=== PATIENT | male | born 1950 | race Caucasian/White ===

== ENCOUNTER → 2017-07-20 10:19 | Outpatient (CLI) | payer MEDICARE, OTHER, SELFPAY | PROVIDERS: Family Provider Internal Medicine; PCP Internal Medicine; Visit Provider Internal Medicine | DX: I10 Essential (primary) hypertension (principal); Z53.9 Procedure and treatment not carried out, unspecified reason ==

== ENCOUNTER → 2018-07-19 06:58 | Outpatient (CLI) | payer MEDICARE, OTHER, SELFPAY ==
[2018-07-19 09:07] LABS: Alanine Aminotransferase 24 IU/L (21-72); Albumin 4.1 g/dL (3.5-5.0); Albumin Globulin Ratio 1.5 (1.0-2.8); Alkaline Phosphatase 57 U/L (38-126); Aspartate Aminotransferase 23 IU/L (17-59); Bilirubin Total 0.7 mg/dL (0.2-1.3); Blood Urea Nitrogen 16 mg/dL (9-20); Calcium 9.3 mg/dL (8.4-10.2); Carbon Dioxide 27 mmol/L (22-32); Chloride 104 mmol/L (98-107); Cholesterol 132 mg/dL (140-199); Estimated Glomerular Filt Rate > 60.0 mL/min (>60); Globulin 2.7 g/dL (1.7-4.1); Glucose 89 mg/dL (80-110); HDL Cholesterol 44 mg/dL (40-60); HEMOLYSIS < 15 (0-50); LDL Cholesterol Calculated 69 mg/dL (<100); Potassium 4.4 mmol/L (3.4-5.1); Sodium 141 mmol/L (137-145); Total Protein 6.8 g/dL (6.3-8.2); Triglycerides 96 mg/dL (35-150)
[2018-07-19 09:37] LABS: Prostate Specific Antigen Scrn 3.91 ng/mL (0.1-4.0)
== END ==
PROVIDERS: Family Provider Internal Medicine; PCP Internal Medicine; Visit Provider Internal Medicine
DX: E78.2 Mixed hyperlipidemia (principal); I10 Essential (primary) hypertension; Z12.5 Encounter for screening for malignant neoplasm of prostate
CPT/HCPCS: 36415; 80053; 80061; G0103

== ENCOUNTER → 2018-08-09 07:15 | Outpatient (CLI) | payer MEDICARE, OTHER, SELFPAY ==
[2018-08-11 19:04] LABS: Fecal Immunochemical Test NOT DETECTED (NOT DETECTED)
== END ==
PROVIDERS: PCP Internal Medicine; Visit Provider Internal Medicine
DX: Z12.11 Encounter for screening for malignant neoplasm of colon (principal)
CPT/HCPCS: 82274

== ENCOUNTER 2018-11-29 08:15 | Emergency (ER) | payer MEDICARE, OTHER, SELFPAY ==
[2018-11-29 08:20] VITALS: BP 142/111; PULSE 144; RESP 14; TEMP 36.3; O2SAT 99
--- NOTE | 2018-11-29 08:24 | DI.RAD.S_ITS ---
PROCEDURE: XR CHEST 1V INDICATIONS: chest pain TECHNIQUE: One view of the chest was acquired. COMPARISON: None. FINDINGS: Surgical changes and devices: None. Lungs and pleura: Lungs are clear. No pleural effusions or pneumothorax. Mediastinum: Mediastinal contours appear normal. Heart size is normal. Bones and chest wall: No suspicious bony lesions. Overlying soft tissues appear unremarkable. IMPRESSION: No acute process. Dictated by: Merrill Nesbitt M.D. on 11/29/2018 at 8:44 Approved by: Merrill Nesbitt M.D. on 11/29/2018 at 8:45
--- NOTE | 2018-11-29 08:27 | ED.ARRPALP ---
HPI - Arrhythmia/Palpitations General Chief Complaint: Hypertension Stated Complaint: blood pressure/heart rate Time Seen by Provider: 11/29/18 08:18 Source: patient Mode of arrival: Ambulatory Limitations: no limitations History of Present Illness HPI narrative: Patient is a 68-year-old male who presents with some heart palpitations. He said he went to get coffee in this morning came home and just started to not feel right. He took his blood pressure he noted it was elevated he also noticed at that time that his heart rate was also increased to the 150s. This never happened to him before. He actually states that over last 4 days he felt dizzy and lightheaded. He denies any chest pain or palpitations or shortness of breath. Today was the 1st day that he felt well enough to leave the house. He has been taking his blood pressure and heart rates and recording them. All 1 from yesterday shows heart rate of 108 and 30 seconds later heart rate of 60. MD complaint: heart racing Duration: constant Related Data Home Medications Medication Instructions Recorded Confirmed ASPIRIN (#ASPIRIN) 81 mg PO QDAY #0 01/07/11 07/28/18 cholecalciferol (vitamin D3) 400 400 unit PO DAILY 10/15/17 07/28/18 unit capsule simvastatin 40 mg PO DAILY 11/29/18 11/29/18 tamsulosin [Flomax] 0.4 mg PO DAILY 11/29/18 11/29/18 Previous Rx's Medication Instructions Recorded ciclopirox 1 % TOPICAL TID #120 bot 10/11/17 amlodipine 10 mg tablet 10 mg PO DAILY #90 tab 09/30/18 Allergies Allergy/AdvReac Type Severity Reaction Status Date / Time No Known Drug Allergies Allergy Verified 07/28/18 10:11 Review of Systems Review of Systems Narrative: GENERAL: Denies chills, fatigue, malaise, fever, sweats, travel HEENT: Denies sinus pain, ear pain, sore throat, difficulty swallowing, neck pain RESPIRATORY: Denies dyspnea, cough, wheezing, hemoptysis, sputum. CARDIOVASCULAR: See HPI GASTROINTESTINAL: Denies nausea, vomiting, abdominal pain, diarrhea, constipation, melena. : Denies dysuria, frequency, incontinence, hematuria, urinary retention, flank pain. MUSCULOSKELETAL: Denies weakness, joint pain, or bony pain SKIN: No rash, no erythema, no pruritus NEUROLOGIC: Denies weakness, dizziness, headache, numbness, change in speech, confusion PSYCHIATRIC: No concerning psychosocial issues. 12 point review of systems is negative except for those stated above and HPI [facility] Medical History Hx of venous thrombosis and embolism (Chronic 01/07/11) Hypertension (Chronic) Mixed hyperlipidemia (Chronic) Osteoarthritis of knee (Chronic 06/13/13) Personal history of pulmonary embolism (Chronic 01/07/11) Family History Father Timbo hx-ischem heart disease Social History marital status: number of children: 3 household members: spouse lives independently: Yes caregiver/support person: No housing: house pets and animals: Yes education level: college (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 yolanda/pentecostalism: Catholic leisure activities: exercise and other (Golfing, digging clams, visiting neighbor.) Smoking Status: Never smoker Tobacco: How many years used: 0 quit status: quit date established (Never started) second hand exposure: No alcohol intake: former substance use type: does not use and other (Drugs in past.) Family History Father [facility] hx-ischem heart disease Social History marital status: number of children: 3 household members: spouse lives independently: Yes caregiver/support person: No housing: house pets and animals: Yes education level: college (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 yolanda/pentecostalism: Catholic leisure activities: exercise and other (Golfing, digging clams, visiting neighbor.) Smoking Status: Never smoker Tobacco: How many years used: 0 quit status: quit date established (Never started) second hand exposure: No alcohol intake: former substance use type: does not use and other (Drugs in past.) Exam Initial Vital Signs Initial Vital Signs: Vital Signs Temperature 97.4 F L 11/29/18 08:20 Pulse Rate 144 H 11/29/18 08:20 Respiratory Rate 14 11/29/18 08:20 Blood Pressure 142/111 H 11/29/18 08:20 Pulse Oximetry 99 11/29/18 08:20 GENERAL: Alert pleasant well-appearing male and in no acute distress. HEENT: Head atraumatic,EOMI, pupils reactive, face symmetric CARDIOVASCULAR: Tachycardic irregularly irregular no murmur RESPIRATORY: Breath sounds equal bilaterally, no wheezes rales or rhonchi. ABDOMEN: Soft, nontender. Normoactive bowel sounds all 4 quadrants. No guarding or rebound. EXTREMITIES: Normal range of motion, no clubbing or edema. Neurovascularly intact NEUROLOGICAL: Alert and oriented x4.Normal gait and speech. Cranial nerves II through XII grossly intact. SKIN: Warm, dry, no laceration, no petechiae, no rashes or lesions. Scores CHADS-VASc Congestive heart failure: no Hypertension: yes Age 75 years or older: no Diabetes mellitus: no Stroke, TIA, or TE: no Vascular disease: no Age 65 to 74 years: yes Sex category (female): Male CHADS-VASc Score: 2 Course Orders Ordered: ED Orders 11/29/18 08:22 EKG-12 Lead Stat 11/29/18 08:24 XR chest 1V Stat 11/29/18 08:30 Complete Blood Count AUTO DIFF Stat Comprehensive Metabolic Panel Stat Magnesium Stat Partial Thromboplastin Time Stat Prothrombin Time INR Stat Thyroid Stimulating Hormone Stat Troponin & CK Cardiac Panel Stat 11/29/18 10:18 EKG-12 Lead Routine Sodium Chloride (Normal Saline 0.9%) 1,000 mls @ 150 mls/hr IV CONT CARLOS ENRIQUE Last Admin: 11/29/18 08:35 Dose: 150 mls/hr Documented by: GRANT Discontinued Medications Aspirin (Aspirin Chew) 324 mg PO NOW ONE Stop: 11/29/18 09:15 Last Admin: 11/29/18 09:25 Dose: 324 mg Documented by: GRANT Diltiazem HCl (Cardizem) 10 mg IV NOW ONE Stop: 11/29/18 08:25 Last Admin: 11/29/18 08:34 Dose: 10 mg Documented by: GRANT Diltiazem HCl (Cardizem) 10 mg IV NOW ONE Stop: 11/29/18 08:43 Last Admin: 11/29/18 08:44 Dose: 10 mg Documented by: GRANT Metoprolol Succinate (Toprol Xl) 25 mg PO NOW ONE Stop: 11/29/18 09:15 Last Admin: 11/29/18 09:25 Dose: 25 mg Documented by: GRANT Vital Signs Vital signs: Vital Signs - 8 hr 11/29/18 08:20 11/29/18 08:48 11/29/18 09:30 Temperature 97.4 F L Pulse Rate 144 H 108 H 98 H Respiratory Rate 14 Blood Pressure 142/111 H Blood Pressure [Left Arm] 114/66 112/74 Pulse Oximetry 99 11/29/18 10:17 Temperature Pulse Rate 72 Respiratory Rate Blood Pressure Blood Pressure [Left Arm] 106/66 Pulse Oximetry MDM - Arrhythmia/Palpitations Lab Data Attestation: I reviewed the patient's lab results. Result diagrams: 11/29/18 08:30 11/29/18 08:30 Labs: Lab Results 11/29/18 11/29/18 11/29/18 Range/Units 08:30 08:30 08:30 WBC 8.7 (4.5-11.0) X10^3/uL RBC 5.00 (4.5-5.9) X10^6/uL Hgb 15.4 (13.5-17.5) g/dL Hct 45.0 (41-53) % MCV 90.0 (80-100) fL MCH 30.8 (26-34) PG MCHC 34.2 (30-36) % RDW 12.9 (11.6-14.8) % Plt Count 288 (150-400) X10^3/uL Neut % (Auto) 65.7 (50-75) % Lymph % (Auto) 25.0 (25-40) % Randall % (Auto) 7.5 (3-14) % Eos % (Auto) 1.4 L (2-4) % Baso % (Auto) 0.4 (0-2) % Neut # (Auto) 5700 (0441-3269) /uL Lymph # (Auto) 2200 (9569-1331) /uL Randall # (Auto) 700 (0-900) /uL Eos # (Auto) 100 (0-450) /uL Baso # (Auto) 0 (0-100) /uL PT 12.1 (10.1-12.7) SECONDS INR 1.0 (0.9-1.3) APTT 31 (26.4-36.2) SECONDS Sodium 138 (137-145) mmol/L Potassium 4.0 (3.4-5.1) mmol/L Chloride 103 (98-107) mmol/L Carbon Dioxide 26 (22-32) mmol/L BUN 18 (9-20) mg/dL Creatinine 0.80 (0.66-1.25) mg/dL Estimated GFR > 60.0 (>60) mL/min BUN/Creatinine Ratio 22.5 H (6-22) Glucose 107 (80-110) mg/dL Calcium 9.3 (8.4-10.2) mg/dL Magnesium 2.1 (1.6-2.3) mg/dL Total Bilirubin 0.6 (0.2-1.3) mg/dL AST 25 (17-59) IU/L ALT 17 L (21-72) IU/L Alkaline Phosphatase 64 (38-126) U/L Total Creatine Kinase 64 (55-170) U/L CK-MB (CK-2) TNP CK-MB (CK-2) Rel Index TNP Troponin I < 0.012 (0.01-0.034) ng/mL Total Protein 7.4 (6.3-8.2) g/dL Albumin 4.2 (3.5-5.0) g/dL Globulin 3.2 (1.7-4.1) g/dL Albumin/Globulin Ratio 1.3 (1.0-2.8) TSH (0.47-4.68) uIU/mL 11/29/18 Range/Units 08:30 WBC (4.5-11.0) X10^3/uL RBC (4.5-5.9) X10^6/uL Hgb (13.5-17.5) g/dL Hct (41-53) % MCV (80-100) fL MCH (26-34) PG MCHC (30-36) % RDW (11.6-14.8) % Plt Count (150-400) X10^3/uL Neut % (Auto) (50-75) % Lymph % (Auto) (25-40) % Randall % (Auto) (3-14) % Eos % (Auto) (2-4) % Baso % (Auto) (0-2) % Neut # (Auto) (6670-8535) /uL Lymph # (Auto) (9708-8033) /uL Randall # (Auto) (0-900) /uL Eos # (Auto) (0-450) /uL Baso # (Auto) (0-100) /uL PT (10.1-12.7) SECONDS INR (0.9-1.3) APTT (26.4-36.2) SECONDS Sodium (137-145) mmol/L Potassium (3.4-5.1) mmol/L Chloride (98-107) mmol/L Carbon Dioxide (22-32) mmol/L BUN (9-20) mg/dL Creatinine (0.66-1.25) mg/dL Estimated GFR (>60) mL/min BUN/Creatinine Ratio (6-22) Glucose (80-110) mg/dL Calcium (8.4-10.2) mg/dL Magnesium (1.6-2.3) mg/dL Total Bilirubin (0.2-1.3) mg/dL AST (17-59) IU/L ALT (21-72) IU/L Alkaline Phosphatase (38-126) U/L Total Creatine Kinase (55-170) U/L CK-MB (CK-2) CK-MB (CK-2) Rel Index Troponin I (0.01-0.034) ng/mL Total Protein (6.3-8.2) g/dL Albumin (3.5-5.0) g/dL Globulin (1.7-4.1) g/dL Albumin/Globulin Ratio (1.0-2.8) TSH 3.20 (0.47-4.68) uIU/mL Imaging Data Chest x-ray: Radiologist's impression: PROCEDURE: XR CHEST 1V INDICATIONS: chest pain TECHNIQUE: One view of the chest was acquired. COMPARISON: None. FINDINGS: Surgical changes and devices: None. Lungs and pleura: Lungs are clear. No pleural effusions or pneumothorax. Mediastinum: Mediastinal contours appear normal. Heart size is normal. Bones and chest wall: No suspicious bony lesions. Overlying soft tissues appear unremarkable. IMPRESSION: No acute process. Dictated by: Merrill Nesbitt M.D. on 11/29/2018 at 8:44 Approved by: Merrill Nesbitt M.D. on 11/29/2018 at 8:45 ECG Data Attestation: I personally reviewed and interpreted this ECG as follows: Prior ECG tracings: not available for review Interpretation: Atrial flutter rate [address] changes no priors to compare EKG 2. Normal sinus rhythm rate 62 p.r. interval [address] elevations or depressions no T-wave inversion MDM Narrative Medical decision making narrative: Patient not a candidate for cardioversion he likely had symptoms for the last few days with the dizziness. His heart rate has been in the 60s although he has had some above 100. His heart rate is much better controlled with diltiazem however he remains in atrial flutter he is actually asymptomatic at this time. I discussed case with Dr. Padron for admission recommend starting him on metoprolol twice daily. Dr. Padron enter the emergency department to evaluate patient and patient spontaneously converted into sinus rhythm. He continues to have no complaints. At this time patient will be discharged home on metoprolol twice daily along with aspirin and follow up outpatient. Discharge Plan Departure Patient Disposition: Home Clinical Impression: Atrial flutter with rapid ventricular response Discharge Date/Time: 11/29/18 10:52 Instructions: Atrial Flutter Activity Restrictions/Additional Instructions: *You have been diagnosed with atrial flutter *What to do: Your heart rate was irregular which may be causing your dizziness. He spontaneously converted back to a normal rhythm. You still need further work up including echocardiogram. *Continue to take medications as directed Metoprolol 25 mg twice a day Aspirin 81 mg once daily *Follow up with your primary care provider in 2-3 days, call Dr. Carpio his office today to schedule appointment *Return to ER if you should have increasing heart palpitations dizziness lightheadedness shortness of breath or any new, worsening or concerning symptoms Prescriptions: New metoprolol succinate 25 mg tablet extended release 24 hr 25 mg PO BID Qty: 30 RF: 0 No Action ASPIRIN (#ASPIRIN) 81 mg PO QDAY Qty: 0 RF: 0 ciclopirox 1 % shampoo 1 % Topical TID Qty: 120 RF: 11 amlodipine 10 mg tablet 10 mg PO DAILY Qty: 90 RF: 3 cholecalciferol (vitamin D3) [Vitamin D3] 400 unit capsule 400 unit PO DAILY RF: 0 simvastatin 40 mg tablet 40 mg PO DAILY RF: 0 tamsulosin [Flomax] 0.4 mg capsule 0.4 mg PO DAILY RF: 0 Referrals: Vidal Carpio MD [Primary Care Provider] -
[2018-11-29] MEDS: dilTIAZem 5 MG/ML SDV 10 MG IV ×2 (08:34→08:44)
[2018-11-29 08:35] LABS: Add Manual Diff / Slide Review NO; Basophils Absolute Auto 0 /uL (0-100); Basophils Percent Auto 0.4 % (0-2); Eosinophils Absolute Auto 100 /uL (0-450); Eosinophils Percent Auto 1.4 % (2-4); Hemoglobin 15.4 g/dL (13.5-17.5); Lymphocytes Absolute Auto 2200 /uL (1100-4500); Mean Corpuscular HGB Conc 34.2 % (30-36); Mean Corpuscular Hemoglobin 30.8 PG (26-34); Monocytes Absolute Auto 700 /uL (0-900); Monocytes Percent Auto 7.5 % (3-14); Neutrophils Absolute Auto 5700 /uL (1500-7000); Neutrophils Percent Auto 65.7 % (50-75); Platelet Count 288 X10^3/uL (150-400); Red Cell Distribution Width 12.9 % (11.6-14.8); White Blood Cell Count 8.7 X10^3/uL (4.5-11.0)
[2018-11-29] MEDS: SODIUM CHLORIDE 0.9% 1,000 ML 150 ML IV (08:35)
[2018-11-29 08:42] LABS: Prothrombin Time 12.1 SECONDS (10.1-12.7)
[2018-11-29 08:45] LABS: PTT Partial Thromboplastin Tim 31 SECONDS (26.4-36.2)
[2018-11-29 08:47] LABS: Alanine Aminotransferase 17 IU/L (21-72); Albumin 4.2 g/dL (3.5-5.0); Albumin Globulin Ratio 1.3 (1.0-2.8); Alkaline Phosphatase 64 U/L (38-126); Aspartate Aminotransferase 25 IU/L (17-59); BUN Creatinine Ratio 22.5 (6-22); Bilirubin Total 0.6 mg/dL (0.2-1.3); Blood Urea Nitrogen 18 mg/dL (9-20); Calcium 9.3 mg/dL (8.4-10.2); Carbon Dioxide 26 mmol/L (22-32); Chloride 103 mmol/L (98-107); Creatine Kinase 64 U/L (55-170); Estimated Glomerular Filt Rate > 60.0 mL/min (>60); Globulin 3.2 g/dL (1.7-4.1); Glucose 107 mg/dL (80-110); HEMOLYSIS 19 (0-50); Magnesium 2.1 mg/dL (1.6-2.3); Sodium 138 mmol/L (137-145); Total Protein 7.4 g/dL (6.3-8.2)
[2018-11-29 08:48] VITALS: BP 114/66; PULSE 108
[2018-11-29 08:58] LABS: Troponin I < 0.012 ng/mL (0.01-0.034)
[2018-11-29] MEDS: ASPIRIN 81 MG CHEW TAB 324 MG PO (09:25)
[2018-11-29] MEDS: METOPROLOL ER 25 MG TABLET PO (09:25)
[2018-11-29 09:30] VITALS: BP 112/74; PULSE 98
[2018-11-29 10:17] VITALS: BP 106/66; PULSE 72
--- NOTE | 2018-12-06 07:29 | PC.NURSE ---
late entry: pt received one liter of fluids NS all infused 1000cc at 1000. pt dc shortly after. nad
--- NOTE | 2018-12-06 07:33 | PC.NURSE ---
pt denies chest pain arrival to ed due to palpatations
== END 2018-11-29 10:52 | disposition home or self-care (01) ==
LOC: ED 09:17 → AC 09:18
PROVIDERS: Emergency Provider Emergency Medicine; PCP Internal Medicine
DX: I48.92 Unspecified atrial flutter (principal)
CPT/HCPCS: 71045; 80053; 82550; 83735; 84443; 84484; 85025; 85610; 85730; 93005; 93010; 93041; 96361; 96374; 99283; 99285

== ENCOUNTER 2018-12-13 17:16 | Emergency (ER) | payer MEDICARE, OTHER, SELFPAY ==
[2018-12-13 17:35] VITALS: BP 148/82; PULSE 52; RESP 18; TEMP 36.6; O2SAT 98; BMI 33.3
--- NOTE | 2018-12-13 17:51 | ED_ITS ---
HPI - Extremity Problem <Cookie Chawla PA-C - Last Filed: 12/13/18 20:27> General Chief complaint: Extremity Problem,Nontraumatic Stated complaint: ELEVATED BP, SWELLING LT LEG Time Seen by Provider: 12/13/18 17:43 Source: patient Mode of arrival: Ambulatory History of Present Illness HPI Narrative: This 68-year-old male comes to ED secondary to noticing swelling in his left ankle and leg today. He states he has had some mild pain/discomfort in the calf and hamstring area for 3 or 4 days. He denies any known trauma, did move a washer and dryer yesterday but does not think he had any injury, and no other known trauma. He has not had any recent travel, surgery, or immobility and is walking 2 miles daily as usual. He denies any chest pain or dyspnea or other new symptoms and has been going about his usual activities. He states that he would not have come in for this mild discomfort he has had aside from noticing the swelling today. He does have a history of remote DVT 15 years ago in the setting of injury. He does take 81 mg ASA daily. He was seen recently for a flutter which resolved. No new medical issues since then. No FH blood clots Related Data Home Medications Medication Instructions Recorded Confirmed aspirin 81 mg PO QPM #0 01/07/11 12/13/18 cholecalciferol (vitamin D3) 400 400 unit PO DAILY 10/15/17 12/13/18 unit capsule simvastatin 40 mg PO QPM 11/29/18 12/13/18 tamsulosin [Flomax] 0.4 mg PO QPM 11/29/18 12/13/18 amlodipine 10 mg PO QPM 12/13/18 12/13/18 Previous Rx's Medication Instructions Recorded ciclopirox 1 % TOPICAL TID #120 bot 10/11/17 metoprolol succinate 25 mg 25 mg PO BID #180 tab 12/05/18 tablet,extended release 24 hr apixaban [Eliquis] See Rx Instructions .ROUTE 12/13/18 .COMPLEX #90 tab Allergies Allergy/AdvReac Type Severity Reaction Status Date / Time No Known Drug Allergies Allergy Verified 12/05/18 16:15 Review of Systems <Cookie Chawla PA-C - Last Filed: 12/13/18 20:27> Review of Systems ROS Unobtainable: All systems reviewed & are unremarkable except as noted in HPI and below PFSH <Cookie Chawla PA-C - Last Filed: 12/13/18 20:27> Medical History Hx of venous thrombosis and embolism (Chronic 01/07/11) Hypertension (Chronic) Mixed hyperlipidemia (Chronic) Osteoarthritis of knee (Chronic 06/13/13) Personal history of pulmonary embolism (Chronic 01/07/11) Family History Father Fam hx-ischem heart disease Social History marital status: number of children: 3 household members: spouse lives independently: Yes caregiver/support person: No housing: house pets and animals: Yes education level: college (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 yoalnda/protestant: Nondenominational leisure activities: exercise and other (Golfing, digging clams, visiting neighbor.) Smoking Status: Never smoker Tobacco: How many years used: 0 quit status: quit date established (Never started) second hand exposure: No alcohol intake: former substance use type: does not use and other (Drugs in past.) Family History Father Fam hx-ischem heart disease Social History marital status: number of children: 3 household members: spouse lives independently: Yes caregiver/support person: No housing: house pets and animals: Yes education level: college (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 yolanda/protestant: Nondenominational leisure activities: exercise and other (Golfing, digging clams, visiting neighbor.) Smoking Status: Never smoker Tobacco: How many years used: 0 quit status: quit date established (Never started) second hand exposure: No alcohol intake: former substance use type: does not use and other (Drugs in past.) Exam <Cookie Chawla PA-C - Last Filed: 12/13/18 20:27> Narrative Exam Narrative: GENERAL APPEARANCE: Patient sitting comfortably, in no distress. NECK/THYROID: Neck supple LUNGS: Clear to auscultation bilaterally. HEART: Regular rate and rhythm without murmur, normal S1, S2, no S3 or S4. EXTREMITIES: No cyanosis, mild pitting edema on the left, none on the right, bilateral varicosities noted. NEUROLOGIC: Alert and oriented, normal speech and coordination. MUSCULOSKELETAL: No tenderness over the left foot or ankle, mild tenderness over the left inferior mid calf, none over remainder of lower extremity. Full range of motion of the foot, knee, and ankle Initial Vital Signs Initial Vital Signs: Vital Signs Temperature 97.8 F 12/13/18 17:35 Pulse Rate 52 L 12/13/18 17:35 Respiratory Rate 18 12/13/18 17:35 Blood Pressure 148/82 H 12/13/18 17:35 Pulse Oximetry 98 12/13/18 17:35 <DO Leticia Walton Last Filed: 12/13/18 23:09> Initial Vital Signs Initial Vital Signs: Vital Signs Temperature 97.8 F 12/13/18 17:35 Pulse Rate 52 L 12/13/18 17:35 Respiratory Rate 18 12/13/18 17:35 Blood Pressure 148/82 H 12/13/18 17:35 Pulse Oximetry 98 12/13/18 17:35 Course <Cookie Chawla PA-C - Last Filed: 12/13/18 20:27> Orders Ordered: ED Orders 12/13/18 18:11 perip venous low extrem lt Stat Discontinued Medications Apixaban (Eliquis) 10 mg PO NOW ONE Stop: 12/13/18 19:22 Last Admin: 12/13/18 19:34 Dose: 10 mg Documented by: CALEB Vital Signs Vital signs: Vital Signs - 8 hr 12/13/18 17:35 12/13/18 19:30 Temperature 97.8 F Pulse Rate 52 L 47 L Respiratory Rate 18 16 Blood Pressure 148/82 H Blood Pressure [Left Arm] 141/79 H Pulse Oximetry 98 99 <DO Leticia Walton Last Filed: 12/13/18 23:09> Orders Ordered: ED Orders 12/13/18 18:11 perip venous low extrem lt Stat Discontinued Medications Apixaban (Eliquis) 10 mg PO NOW ONE Stop: 12/13/18 19:22 Last Admin: 12/13/18 19:34 Dose: 10 mg Documented by: CALEB Vital Signs Vital signs: Vital Signs - 8 hr 12/13/18 17:35 12/13/18 19:30 Temperature 97.8 F Pulse Rate 52 L 47 L Respiratory Rate 18 16 Blood Pressure 148/82 H Blood Pressure [Left Arm] 141/79 H Pulse Oximetry 98 99 MDM - Extremity (Nontraumatic) <Cookie Chawla PA-C - Last Filed: 12/13/18 20:27> Imaging Data Venous US: Radiologist's impression: [address] [address] Ultrasound Report Signed Patient: Donaldo Fermin FMR#: [id number] : 2Acct:[id number] Age/Sex: 68 / MDate of Service: 12/13/18 Loc: ED Accession Number: [id number] Procedure: US perip venous low extrem lt Ordering Provider: Cookie Chawla P.A-C PROCEDURE: US PERIP VENOUS LOW EXTREM LT INDICATIONS: EDEMA; HISTORY LLE DVT TECHNIQUE: Real-time imaging, as well as color and pulse Doppler interrogation, were performed of the lower extremity deep veins from the inguinal ligament to the popliteal fossa. COMPARISON: None. FINDINGS: There is occlusive filling defect beginning in the superficial femoral vein extending through the mid and distal segments and the popliteal vein consistent with deep venous thrombosis. The common femoral vein is patent proximally. IMPRESSION: 1. Occlusive deep venous thrombosis demonstrated in the left lower extremity from the proximal superficial femoral vein through the popliteal vein. Findings discussed with Cookie Chawla PA-C on 12/13/18 at 7:10 PM. Dictated by: Pietro Avila M.D. on 12/13/2018 at 19:08 Approved by: Pietro Avila M.D. on 12/13/2018 at 19:12 Discharge Plan Departure Patient Disposition: Home Clinical Impression: Deep vein thrombosis of lower extremity Qualifiers: Affected thrombotic vein of extremity: femoral Chronicity: acute Laterality: left Qualified Code(s): I82.412 - Acute embolism and thrombosis of left femoral vein Discharge Date/Time: 12/13/18 19:52 Instructions: DI for Deep Vein Thrombosis Activity Restrictions/Additional Instructions: I have sent a prescription for Eliquis, the medicine that you had here tonight, to your pharmacy, please take her next dose in the morning (I have told her pharmacy they can substitute equivalent if needed). This medicine is 10 mg twice daily for a week, then 5 mg twice daily. Make sure you stop your aspirin. Please call your PCP tomorrow Dr. Carpio know that you were seen here for a blood clot last night, and set up a follow-up visit for this. As we talked about, you should return right away if you have any new symptoms such as shortness of breath, chest pain, feeling faint, etc. Otherwise you can continue your usual activities as long as you are taking this new medicine Prescriptions: New Eliquis 5 mg tablet See Rx Instructions .ROUTE .COMPLEX Qty: 90 RF: 0 No Action aspirin 81 mg Tablet,Delayed Release (Dr/Ec) 81 mg PO QPM Qty: 0 RF: 0 ciclopirox 1 % shampoo 1 % Topical TID Qty: 120 RF: 11 cholecalciferol (vitamin D3) [Vitamin D3] 400 unit capsule 400 unit PO DAILY RF: 0 metoprolol succinate 25 mg tablet extended release 24 hr 25 mg PO BID Qty: 180 RF: 3 amlodipine 10 mg tablet 10 mg PO QPM RF: 0 simvastatin 40 mg tablet 40 mg PO QPM RF: 0 tamsulosin [Flomax] 0.4 mg capsule 0.4 mg PO QPM RF: 0 Referrals: Vidal Carpio MD [Primary Care Provider] - <Yan Roman DO - Last Filed: 12/13/18 23:09> Sign Out Provider Sign Out Attestation: I was available for consultation during this patient's emergency department visit. This chart is signed by myself for administrative purposes only. I did not have direct contact with this patient during this visit. They were seen independently by the APC.
--- NOTE | 2018-12-13 18:11 | DI.US.S_ITS ---
PROCEDURE: US PERIPH VENOUS LOW EXTREM LT INDICATIONS: EDEMA; HISTORY LLE DVT TECHNIQUE: Real-time imaging, as well as color and pulse Doppler interrogation, were performed of the lower extremity deep veins from the inguinal ligament to the popliteal fossa. COMPARISON: None. FINDINGS: There is occlusive filling defect beginning in the superficial femoral vein extending through the mid and distal segments and the popliteal vein consistent with deep venous thrombosis. The common femoral vein is patent proximally. IMPRESSION: 1. Occlusive deep venous thrombosis demonstrated in the left lower extremity from the proximal superficial femoral vein through the popliteal vein. Findings discussed with Cookie Chawla PA-C on 12/13/18 at 7:10 PM. Dictated by: Pietro Avila M.D. on 12/13/2018 at 19:08 Approved by: Pietro Avila M.D. on 12/13/2018 at 19:12
[2018-12-13 19:30] VITALS: BP 141/79; PULSE 47; RESP 16; O2SAT 99
[2018-12-13] MEDS: APIXABAN 5 MG TABLET 10 MG PO (19:34)
== END 2018-12-13 19:52 | disposition home or self-care (01) ==
PROVIDERS: Emergency Provider Internal Medicine; Family Provider Internal Medicine; PCP Internal Medicine
DX: I82.412 Acute embolism and thrombosis of left femoral vein (principal)
CPT/HCPCS: 93971; 99283

== ENCOUNTER → 2018-12-21 07:43 | Outpatient (CLI) | payer MEDICARE, OTHER, SELFPAY ==
--- NOTE | 2018-12-21 07:44 | DI.ECHO.S_ITS ---
[facility] +---------+ : : [address] : [place] [address] : : : : [id number] : : : : Phone: [phone]+ Echocardiogram Report + + :Name: MADELINE BENITES Study Date: 12/21/2018 Height: 75 in : :[facility] Weight: 260 lb : : Gender: Male BSA: 2.5 m2 : :: 1950 Age: 68 yrs BP: 128/80 mmHg: :Reason For Study: AFLUTTER : : Performed By: Sergio Cordova : :Referring: KATELYN BUTLER : + + Interpretation Summary The study quality was technically difficult. A contrast injection of Definity was performed to improve assessment of LV function. The ejection fraction is estimated to be 60-65%. The aortic valve is mildly calcified. There is mild aortic regurgitation. There is trace tricuspid regurgitation. The right ventricular systolic pressure is estimated to be at least 29 mmHg based on an estimated right atrial pressure of 8 mm Hg. The ascending aorta is moderately enlarged. Procedure: A two-dimensional transthoracic echocardiogram with color flow and Doppler was performed. The study quality was technically difficult. There is no prior echocardiogram noted for this patient. A contrast injection of Definity was performed to improve assessment of LV function. The patient was in normal sinus rhythm during the exam. The patient was bradycardic with a heart rate of 43-54 beats per minute. Left Ventricle: The left ventricle is normal in size. There is normal left ventricular wall thickness. The ejection fraction is estimated to be 60-65%. There are no obvious focal wall motion abnormalities noted but poor endocardial definition reduces the sensitivity for the detection of such. Right Ventricle: The right ventricle is at the upper limits of normal in size. The right ventricular systolic function is normal. Atria: The left atrium is mildly dilated. The right atrium is severely dilated. The interatrial septum is intact with no evidence for an atrial septal defect. Mitral Valve: The mitral valve is normal in structure and function. The mitral valve leaflets are slightly calcified. There is trace mitral regurgitation. Aortic Valve: The aortic valve is trileaflet. The aortic valve is mildly calcified. The aortic valve opens well. There is mild aortic regurgitation. Tricuspid Valve: The tricuspid valve is normal in structure and function. There is trace tricuspid regurgitation. The right ventricular systolic pressure is estimated to be at least 29 mmHg based on an estimated right atrial pressure of 8 mm Hg. Pulmonic Valve: The pulmonic valve is normal in structure and function. There is trace pulmonic regurgitation. Great Vessels: The aortic root is normal size. The ascending aorta is moderately enlarged. The aortic arch is mildly enlarged. The pulmonary artery is normal size. The IVC is dilated (diameter is greater than 2.1 cm) yet it collapses greater than 50% with a sniff. This suggests a right atrial pressure of 8 mm Hg. Pericardium/ Pleura There is no pericardial effusion. There is no pleural effusion. MMode/2D Measurements & Calculations LVIDd: 5.9 cm LVOT diam: 2.5 cm LVIDs: 3.3 cm Ao root diam: 3.9 cm FS: 44.2 % Aortic Jxn: 3.7 cm EPSS: 0.55 cm asc Aorta Diam: 4.4 cm IVSd: 1.2 cm Ao Arch Diam (Prox Trans): 3.4 cm LVPWd: 1.1 cm LV daniels. diameter/BSA (cm/m^2): 2.4 LV sys. diameter/BSA (cm/m^2): 1.4 LA dimension: 4.2 cm RA long axis: 5.4 cm LA A2 area: 31.3 cm2 RA area: 27.9 cm2 LA A4 area: 27.5 cm2 RA vol: 123.0 ml LA length (vol): 7.9 cm RA : 50.1 ml/m2 LA vol: 91.8 ml IVC diam: 2.3 cm LA vol index: 37.4 ml/m2 RVD1 (basal): 4.3 cm RVD2 (mid): 4.5 cm Doppler Measurements & Calculations Ao V2 max: 173.9 cm/sec LVOT Max Donte: 106.7 cm/sec Ao V2 mean: 119.2 cm/sec LV V1 max P.6 mmHg Ao max P.1 mmHg LV V1 VTI: 28.0 cm Ao mean P.4 mmHg ABHIJEET(I,D): 3.5 cm2 Ao V2 VTI: 39.7 cm ABHIJEET(V,D): 3.0 cm2 sev ratio: 0.71 ABHIJEET indexed to BSA (cm^2/m^2): 1.4 MV E max donte: 75.3 cm/sec TR max donte: 231.5 cm/sec MV A max donte: 86.6 cm/sec TR max P.4 mmHg MV E/A: 0.87 PA V2 max: 75.3 cm/sec Med Peak E' Donte: 4.2 cm/sec PA V2 mean: 62.1 cm/sec E/E' med: 17.8 PA mean P.6 mmHg Lat Peak E' Donte: 7.1 cm/sec PA pr(Accel): 25.8 mmHg E/E' lat: 10.6 PA Accel Time: 0.10 sec E/e' average: 14.2 MV dec time: 0.26 sec SV(LVOT): 137.1 ml Reading Physician:11:13 AM
== END ==
PROVIDERS: Family Provider Internal Medicine; PCP Internal Medicine; Visit Provider Family Medicine
DX: I35.1 Nonrheumatic aortic (valve) insufficiency (principal); I48.92 Unspecified atrial flutter; I77.89 Other specified disorders of arteries and arterioles
CPT/HCPCS: 93306; Q9957

== ENCOUNTER → 2019-01-02 09:47 | Outpatient (CLI) | payer MEDICARE, OTHER, SELFPAY ==
[2019-01-05 15:55] LABS: Protein C Activity 109 % normal (70-180)
[2019-01-08 13:47] LABS: B2-Glycoprotein I IgA AB < 9 SAU (< OR = 20); B2-Glycoprotein I IgG AB < 9 SGU (< OR = 20); B2-Glycoprotein I IgM AB < 9 SMU (< OR = 20); Cardiolipin Ab IgA < 11 APL; Cardiolipin Ab IgG < 14 GPL; Cardiolipin Ab IgM < 12 MPL; Phos. Serine AB IgM < 25 U/mL
[2019-01-09 08:57] LABS: dRVVT Screen 41
== END ==
PROVIDERS: PCP Internal Medicine; Visit Provider Internal Medicine
DX: I82.409 Acute embolism and thrombosis of unspecified deep veins of unspecified lower extremity (principal)
CPT/HCPCS: 36415; 85300; 85303; 85306; 85613; 86146; 86147; 86148

== ENCOUNTER → 2019-07-18 06:42 | Outpatient (CLI) | payer MEDICARE, OTHER, SELFPAY ==
[2019-07-18 08:17] LABS: Add Manual Diff / Slide Review NO; Basophils Absolute Auto 0 /uL (0-100); Basophils Percent Auto 0.4 % (0-2); Eosinophils Absolute Auto 100 /uL (0-450); Eosinophils Percent Auto 1.3 % (2-4); Hematocrit 43.6 % (41-53); Hemoglobin 14.6 g/dL (13.5-17.5); Lymphocytes Absolute Auto 1600 /uL (1100-4500); Lymphocytes Percent Auto 23.9 % (25-40); Mean Corpuscular HGB Conc 33.4 % (30-36); Mean Corpuscular Hemoglobin 30.3 PG (26-34); Mean Corpuscular Volume 90.7 fL (80-100); Monocytes Absolute Auto 500 /uL (0-900); Monocytes Percent Auto 7.4 % (3-14); Neutrophils Absolute Auto 4500 /uL (1500-7000); Platelet Count 280 X10^3/uL (150-400); Red Blood Cell Count 4.81 X10^6/uL (4.5-5.9); Red Cell Distribution Width 13.3 % (11.6-14.8); White Blood Cell Count 6.7 X10^3/uL (4.5-11.0)
[2019-07-18 08:50] LABS: Alanine Aminotransferase 20 IU/L (<50); Albumin 4.3 g/dL (3.5-5.0); Albumin Globulin Ratio 1.3 (1.0-2.8); Alkaline Phosphatase 60 U/L (38-126); Aspartate Aminotransferase 25 IU/L (17-59); BUN Creatinine Ratio 19.4 (6-22); Bilirubin Total 0.6 mg/dL (0.2-1.3); Blood Urea Nitrogen 14 mg/dL (9-20); Calcium 9.1 mg/dL (8.4-10.2); Carbon Dioxide 26 mmol/L (22-32); Chloride 106 mmol/L (98-107); Cholesterol 138 mg/dL (140-199); Estimated Glomerular Filt Rate > 60.0 mL/min (>60); Globulin 3.2 g/dL (1.7-4.1); Glucose 95 mg/dL (80-110); HDL Cholesterol 37 mg/dL (40-60); HEMOLYSIS < 15 (0-50); LDL Cholesterol Calculated 79 mg/dL (<100); Potassium 4.2 mmol/L (3.4-5.1); Sodium 140 mmol/L (137-145); Total Protein 7.5 g/dL (6.3-8.2); Triglycerides 111 mg/dL (35-150)
== END ==
PROVIDERS: PCP Internal Medicine; Referring Provider Internal Medicine; Visit Provider Internal Medicine
DX: E78.2 Mixed hyperlipidemia (principal); I10 Essential (primary) hypertension; I48.92 Unspecified atrial flutter; I82.409 Acute embolism and thrombosis of unspecified deep veins of unspecified lower extremity
CPT/HCPCS: 36415; 80053; 80061; 85025

== ENCOUNTER → 2019-08-22 12:46 | Outpatient (CLI) | payer MEDICARE, OTHER, SELFPAY ==
[2019-08-23 15:35] LABS: SARS CoV19 IgG Negative (Negative)
== END ==
PROVIDERS: PCP Internal Medicine; Referring Provider Internal Medicine; Visit Provider Internal Medicine
DX: B34.9 Viral infection, unspecified (principal)
CPT/HCPCS: 36415; 86769

== ENCOUNTER → 2019-12-08 06:51 | Outpatient (CLI) | payer MEDICARE, OTHER, SELFPAY ==
[2019-12-08 07:31] LABS: Add Manual Diff / Slide Review NO; Basophils Absolute Auto 0 /uL (0-100); Basophils Percent Auto 0.3 % (0-2); Eosinophils Absolute Auto 100 /uL (0-450); Hematocrit 41.5 % (41-53); Hemoglobin 14.2 g/dL (13.5-17.5); Lymphocytes Absolute Auto 1300 /uL (1100-4500); Lymphocytes Percent Auto 14.4 % (25-40); Mean Corpuscular HGB Conc 34.2 % (30-36); Mean Corpuscular Hemoglobin 30.6 PG (26-34); Mean Corpuscular Volume 89.6 fL (80-100); Monocytes Absolute Auto 500 /uL (0-900); Neutrophils Absolute Auto 7000 /uL (1500-7000); Neutrophils Percent Auto 78.3 % (50-75); Platelet Count 277 X10^3/uL (150-400); Red Blood Cell Count 4.64 X10^6/uL (4.5-5.9); Red Cell Distribution Width 13.1 % (11.6-14.8)
[2019-12-08 08:10] LABS: Alanine Aminotransferase 19 IU/L (<50); Albumin Globulin Ratio 1.4 (1.0-2.8); Alkaline Phosphatase 63 U/L (38-126); Aspartate Aminotransferase 23 IU/L (17-59); BUN Creatinine Ratio 17.9 (6-22); Bilirubin Total 0.6 mg/dL (0.2-1.3); Blood Urea Nitrogen 15 mg/dL (9-20); Carbon Dioxide 31 mmol/L (22-32); Chloride 104 mmol/L (98-107); Cholesterol 135 mg/dL (140-199); Estimated Glomerular Filt Rate > 60.0 mL/min (>60); Globulin 2.8 g/dL (1.7-4.1); Glucose 92 mg/dL (80-110); HDL Cholesterol 39 mg/dL (40-60); HEMOLYSIS < 15 (0-50); LDL Cholesterol Calculated 65 mg/dL (<100); Potassium 4.3 mmol/L (3.4-5.1); Sodium 140 mmol/L (137-145); Total Protein 6.8 g/dL (6.3-8.2); Triglycerides 155 mg/dL (35-150)
[2019-12-08 08:40] LABS: Prostate Specific Antigen Scrn 4.15 ng/mL (0.1-4.0)
== END ==
PROVIDERS: PCP Internal Medicine; Referring Provider Internal Medicine; Visit Provider Internal Medicine
DX: Z12.5 Encounter for screening for malignant neoplasm of prostate (principal); E78.2 Mixed hyperlipidemia; I10 Essential (primary) hypertension; I48.92 Unspecified atrial flutter; Z79.01 Long term (current) use of anticoagulants
CPT/HCPCS: 36415; 80053; 80061; 85025; G0103

== ENCOUNTER → 2019-12-25 06:54 | Outpatient (CLI) | payer MEDICARE, OTHER, SELFPAY ==
[2019-12-25 08:09] LABS: Add Manual Diff / Slide Review NO; Basophils Absolute Auto 0 /uL (0-100); Basophils Percent Auto 0.5 % (0-2); Eosinophils Absolute Auto 100 /uL (0-450); Eosinophils Percent Auto 1.8 % (2-4); Hematocrit 41.2 % (41-53); Hemoglobin 14.4 g/dL (13.5-17.5); Lymphocytes Absolute Auto 1600 /uL (1100-4500); Lymphocytes Percent Auto 24.7 % (25-40); Mean Corpuscular HGB Conc 34.8 % (30-36); Monocytes Absolute Auto 500 /uL (0-900); Neutrophils Absolute Auto 4200 /uL (1500-7000); Platelet Count 267 X10^3/uL (150-400); Red Blood Cell Count 4.63 X10^6/uL (4.5-5.9); Red Cell Distribution Width 12.5 % (11.6-14.8); White Blood Cell Count 6.4 X10^3/uL (4.5-11.0)
[2019-12-25 08:24] LABS: Blood Urea Nitrogen 15 mg/dL (9-20); Carbon Dioxide 29 mmol/L (22-32); Chloride 106 mmol/L (98-107); Estimated Glomerular Filt Rate > 60.0 mL/min (>60); Glucose 97 mg/dL (80-110); HEMOLYSIS < 15 (0-50); Potassium 4.1 mmol/L (3.4-5.1); Sodium 140 mmol/L (137-145)
[2019-12-25 08:30] LABS: Hemoglobin A1C% w Est Avg Glu 5.4 % (4.0-6.0)
== END ==
PROVIDERS: PCP Internal Medicine; Referring Provider Orthopaedic Surgery; Visit Provider Orthopaedic Surgery
DX: Z01.818 Encounter for other preprocedural examination (principal); Z01.812 Encounter for preprocedural laboratory examination; M25.511 Pain in right shoulder; R73.9 Hyperglycemia, unspecified
CPT/HCPCS: 36415; 80048; 83036; 85025; 93005; 93010

== ENCOUNTER → 2020-01-22 09:21 | Outpatient (CLI) | payer MEDICARE, OTHER, SELFPAY ==
[2020-01-23 07:18] LABS: PSA Free % 13.5 % (.); PSA, Total 3.1 ng/mL (0.0-4.0)
== END ==
PROVIDERS: PCP Internal Medicine; Referring Provider Internal Medicine; Visit Provider Internal Medicine
DX: R97.20 Elevated prostate specific antigen [PSA] (principal)
CPT/HCPCS: 36415; 84153; 84154

== ENCOUNTER → 2020-01-27 08:30 | Outpatient (CLI) | payer MEDICARE, OTHER, SELFPAY ==
[2020-01-27 09:46] LABS: COVID19 -Nasal RAPID Negative (Negative)
== END ==
PROVIDERS: PCP Internal Medicine; Visit Provider Physician Assistant
DX: Z11.59 Encounter for screening for other viral diseases (principal)
CPT/HCPCS: 87635

== ENCOUNTER 2020-01-29 06:10 | Day surgery (SDC) | payer MEDICARE, OTHER, SELFPAY ==
[2020-01-23 08:58] VITALS: BMI 35.2
[2020-01-29] VITALS (23 sets, daily range): BP systolic 95–143; BP diastolic 63–102; PULSE 54–102; RESP 12–20; TEMP 35.7–37; O2SAT 91–98; BMI 35.2
--- NOTE | 2020-01-29 06:45 | DI.RAD.S_ITS ---
PROCEDURE: XR KNEE RT 1TO2V INDICATIONS: post op films TECHNIQUE: A total of 2 view(s) of the knee acquired. COMPARISON: None. FINDINGS: Bones: Patient is status post knee joint arthroplasty. Hardware components are in expected positions. Visualized bony structures are intact. Soft tissues: Overlying postoperative changes are noted. IMPRESSION: Normal alignment after right total knee arthroplasty. Dictated by: Ruel Conley M.D. on 01/29/2020 at 11:45 Approved by: Ruel Conley M.D. on 01/29/2020 at 11:46
[2020-01-29] MEDS: ACETAMINOPHEN 325 MG TABLET 975 MG PO (07:02)
[2020-01-29] MEDS: PREGABALIN 75 MG CAPSULE PO (07:03)
[2020-01-29] MEDS: LACTATED RINGERS 1,000 ML 42 ML IV ×2 (07:20→08:43)
--- NOTE | 2020-01-29 07:37 | PM.PREOP ---
Pre-operative Note COVID-19 COVID-19 status: Negative Result date/Date tested (Pos, Neg/Pending): 01/27/20 Interval Note History & Physical reviewed/Exam performed by Physician: Yes Changes to H&P: No
[2020-01-29] MEDS: CEFAZOLIN 2 GM/100 ML FROZ.PIGGY IV (07:45)
--- NOTE | 2020-01-29 07:49 | P.OP_ITS ---
Operative Date/Time/Diagnoses Date of procedure: 01/29/20 Time of procedure: 09:46 Pre-op diagnosis: Right knee osteoarthritis Post-op diagnosis: same Procedure & Clinicians Procedure: Right total knee replacement Same procedure as scheduled: Yes Indications: The patient has had progressively worsening right knee pain with radiographic changes consistent with arthritis. Non-operative management has failed and the patient has requested total knee replacement. The risks, benefits and alternatives to surgery were discussed with the patient prior to proceeding. Risks discussed included, but were not limited to, failure to relieve pain, stiffness, infection, nerve damage, deep venous thrombosis, pulmonary embolism, stroke, coma, heart attack, permanent paralysis and , as well as the potential need for eventual revision of the prosthetic. Surgeon: Blake Mckoy [employer] Supervisor: Alis Loya Click Yes if Unassisted: No Anesthesia Type: Spinal and Local Operative Notes Findings: Severe lateral and moderate patellofemoral osteoarthritis. Closure Type: primary Specimen(s): none sent Prosthetic devices, grafts, tissues, transplants, or devices: Implants used in this procedure were manufactured by the [employer] and included the BCS II Journey total knee replacement with a size 8 Oxinium femur, a size 7 non porous tibial base plate with a 9 mm cross-linked polyethylene insert and a 38 mm oval Jazmine II patella Applied: implant(s) Estimated Blood Loss (mL): 25 Blood products transfused: none Tourniquet time (min): 56 Procedure in detail: The patient was seen in the pre-operative area, where the patient identified the right knee as the operative site and this was marked with my initials. The patient received pre-operative antibiotics, and was taken to the operating room and placed on the operative table in the supine position. After satisfactory anesthesia, a time checker out was performed. The right leg was encircled with a tourniquet about the proximal thigh, and the leg was prepared from the toes to the tourniquet with ChloroPrep in the usual fashion and draped through sterile drapes. The leg was elevated and exsanguinated with Eschmark bandage and the tourniquet inflated to 250 mmHg pressure. The knee was approached through an approximately 18 cm incision centered over the patella and carried into the knee through a medial parapatellar arthrotomy. The anterior osteophytes and soft tissues were removed. The rotational landmarks of Mcandrews's line and the transepicondylar axis were marked on the femur with electrocautery, and intramedullary guide holes for the femur and tibia were created. The distal femoral cut was made in 6 degrees of valgus using the intramedullary guide at the primary cut setting. The proximal tibial cut was then made using the intramedullary guide, taking 9 mm of bone off the less involved side. The extension gap was checked and the rotation of the femoral component confirmed with the gap balancing system. The anterior, posterior and chamfer cuts were then made. The posterior osteophytes and soft tissues were then removed. The posterior capsule was injected with part of a mixture of 60 ml 0.25% Marcaine mixed with 20 ml Exparel and 4 mg of morphine for post-operative pain control. The remainder of this mixture was injected into the capsule and subcutaneous tissues during cement curing. The tibia was prepared with the rotation set by an extra medullary guide. Trial tibial and femoral components were then placed and the intercondylar notch cut through the femoral trial. Range of motion was 0-135 degrees, with good stability throughout the range. The patella was then cut to accommodate the patellar prosthetic. There was no need for a lateral release. The trials were then removed, and the femoral hole plugged with a bone plug. The bone was prepared with pulsatile lavage, and dried with a sponge. Cement was applied and the final prosthetics placed. Excess cement was removed during and after cement curing. After confirming there was no extruded cement posteriorly, the final tibial insert was placed. The knee was copiously irrigated and the tourniquet deflated. Hemostasis was obtained. The capsule was closed with interrupted # 2 polyester suture. The subcutaneous layer was closed with 3-0 Vicryl, and the skin with a running 3-0 V-Lock suture and Dermabond. An Aquacel Ag dressing was applied and the patient was taken to recovery having tolerated the procedure well. Complications: none Post-operative Condition: stable Disposition: PACU Plan for aftercare: The patient will be maintained on a standard total knee replacement protocol with weight bearing as tolerated. The patient will receive aspirin and sequential compression devices for DVT prophylaxis. The patient will be discharged home when safe for the home environment.
--- NOTE | 2020-01-29 08:15 | SUR.OPER ---
Supine on padded OR bed. Pillow under head, arms secured on padded armboards <90 degree abduction. Safety belt across torso. Non-operative leg secured with tape over blanket over lower leg. Operative leg secured in DeMayo/Jan positioner. Foam padded brace at thigh of operative leg.
[2020-01-29] MEDS: TRANEXAMIC ACID 1,000 MG VIAL 1000 MG IV ×2 (08:23→09:34)
[2020-01-29] MEDS: MORPHINE 4 MG/ML INJ INJ (08:24)
[2020-01-29] MEDS: BUPIVACAINE 0.25% W/ EPI (PF) 10 ML VIAL 20 ML INJ (08:24)
[2020-01-29] MEDS: BUPIVACAINE LIPOSOME 266 MG/20 ML VIAL INJ (08:25)
[2020-01-29] MEDS: LACTATED RINGERS 1,000 ML 100 ML IV ×2 (11:10→22:25)
--- NOTE | 2020-01-29 11:25 | PC.ADMIT ---
[email or web address] [facility] Admission Note: The patient,Donaldo Fermin,69 y/o, was given written information regarding hospital policies, unit procedures and contact persons. Patient's smoking status: Never smoker. Vital Signs - 8 hr 01/29/20 06:55 01/29/20 09:42 01/29/20 09:47 Temperature 97.8 F 97.3 F L Pulse Rate 69 63 63 Respiratory Rate 16 15 14 Blood Pressure 130/89 101/63 103/65 Pulse Oximetry 95 94 93 01/29/20 09:52 01/29/20 09:57 01/29/20 10:02 Temperature Pulse Rate 70 79 58 L Respiratory Rate 12 14 12 Blood Pressure 107/70 95/68 97/63 Pulse Oximetry 96 95 95 01/29/20 10:06 01/29/20 10:11 01/29/20 10:17 Temperature Pulse Rate 58 L 55 L 54 L Respiratory Rate 14 14 14 Blood Pressure 108/72 109/73 110/75 Pulse Oximetry 95 95 95 01/29/20 10:22 01/29/20 10:28 01/29/20 10:33 Temperature 97.3 F L 96.6 F L Pulse Rate 56 L 56 L 57 L Respiratory Rate 12 14 16 Blood Pressure 105/66 114/78 111/74 Pulse Oximetry 96 96 91 Rec'd pt from PACU to rm 222 via bed. Pt is AAO x4 and making needs known with clear, logical speech. He is currently denying pain. There is an christiano wrap covering the dsg to his r knee that is CDI. Pt reports mild tingling/numbness to RLE but is able to move leg, ankle, and toes. Reports decreased sensation when compared to the left. Pt unable to set a pain goal at this time. Reports this is his first surgery and he is unsure of what to expect pain garcia and would like to re evaluate once he regains sensation. Educated to post op plan of care, mobility limitations, fall risk. Instructed pt to use call light and wait for assistance before getting OOB. Pt verbalizes understanding.
[2020-01-29] MEDS: ACETAMINOPHEN 325 MG TABLET 650 MG PO ×2 (14:17→20:19)
--- NOTE | 2020-01-29 14:54 | PT.IIE ---
Current Diagnoses Unilateral primary osteoarthritis, right knee (01/29/20) Surgery Performed Operation Date: 01/29/20 07:45 Actual Procedures p Total Knee Arthroplasty(Right) - Blake Mckoy MD Surgical History (Last Updated 01/23/20 @ 09:07 by Adela Oleary, RN) Hx of cholecystectomy Medical History (Last Updated 01/23/20 @ 09:12 by Adela Oleary RN) Atrial flutter Bradycardia Elevated PSA Hearing impaired Hx of venous thrombosis and embolism (01/07/11) Hypertension Kidney stones Mixed hyperlipidemia Osteoarthritis of knee (06/13/13) Personal history of pulmonary embolism (01/07/11) Physical Therapy Inpatient Evaluation/Re-Eval M1 PT/OT-IP Prior Functional Status Start: 01/29/20 11:59 Freq: NEEDED Status: Active Protocol: Document 01/29/20 14:05 (Rec: 01/29/20 14:53 [email or web address]) Medical Review Prior Functional Status Medical History Reviewed Yes Diet/Fluid Consistency Regular Communication no deficits noted. able to make needs known Mobility and Gait independent for mobility at home and community without AD. Able to walk 2 miles a day but easily aggravated by yard work. Pt needs to wear knee sleeve for pain control. And he has difficulty doing STS without UE support Activities of Daily Living and IADL's idependent for ADLs and IADLs . Able to drive Social History Household Members spouse Living Arrangements House Number of Floors (Floors) One Floor Number of Stairs To Enter/Railing? 2 platform steps to enter without rails pt has adjustable bed at home Home Environment High Toilet,Walk in Shower,Tub /Shower Doors Home Equipment Front Wheel Walker,Straight Cane,Raised Toilet Seat Without Armrests,Shower Seat with Backrest,Hand Held Shower Employment Status Retired Additional Social History Comment Pt lives with his who is able to assist as needed. He also has friends/ neighbor to support if needed. Pt will start outpatient PT at from next week. M2 PT-IP Current Condition Start: 01/29/20 11:59 Freq: NEEDED Status: Active Protocol: Document 01/29/20 14:05 (Rec: 01/29/20 14:53 [email or web address]) Physical Therapy Current Condition Current Condition Evaluation Date 01/29/20 Treatment Diagnosis R TKA, difficulty in walking Onset Date 01/29/20 Weight Bearing Status Weight Bearing Status Weight Bear as Tolerated M3 PT-IP Subjective Start: 01/29/20 11:59 Freq: NEEDED Status: Active Protocol: Document 01/29/20 14:05 (Rec: 01/29/20 14:53 [email or web address]) Subjective Physical Therapy Visit Type Type Initial Evaluation Visit Start Time 14:05 Visit Stop Time 14:36 Total Visit Minutes 31 Number of BALANCE BRIDGE ASSEMBLER Visits 0 Physical Therapy Visit Comments Patient Comments I am ready to get up. Patient Goals To return home with . Therapy Pain Assessment Pain When Pain Assessed During Mobility Pain Present Pain Present Denied Pain M4 PT-IP Mobility and Gait Start: 01/29/20 11:59 Freq: NEEDED Status: Active Protocol: Document 01/29/20 14:05 (Rec: 01/29/20 14:53 [email or web address]) PT-Bed Mobility Assessment Supine to Sit Supine to Sit Standby Assistance Scooting Scooting to Edge of Bed Standby Assistance PT-Transfer Assessment Sit to and From Stand Sit to and from Stand Contact Guard Assistance,Use of Upper Extremities Equipment Transfer Assistive Device Gait Belt,Front Wheeled Walker Orthotic/Prosthetic Devices or Brace: No Transfers Transfer Destination Bed,Chair Transfer Technique Stand Step Pivot Transfer Ability Level of Assist Contact Guard Assistance,Use of Upper Extremities Comments Mobility Comments Pt was in bed fully awake upon PT arrival. AxO x 4. Agreed to mobilize with PT as tolerated. Pt verbalize good understanding of post op protocol and rehab POC. He was able to perform supine leg press with full control of knee flexion and extension. Pt then completed supine to sit with SBA slowly. He used L ankle hook to pivot RLE towards EOB. He then performed seated heel slide up to 100- 110 degrees flexion. Elevated bed to his home bed level and he was able to stand up with staggered stance and FWW CGA. pt practiced lateral weight shift at first then proceeded to walking with FWW. Pt performed step to pattern by leading with FWW following by RLE. His RLE was minimally unstable but no increased discomfort noted. He walked from L side of the bed and around the foot of bed to room door then returned. Pt then returned to bedside chair with safe transfer by using B chair armrests and staggered stance. He was reclined and rested comfortably. Call light placed within reach. Gait Assessment Gait Gait Assistance Required: Contact Guard Assist Distance (Feet) 12 Able to Maintain Weight Bearing Status Yes During Gait Assistive Devices Assistive Device Gait Belt,Front Wheeled Walker Orthotic/Prosthetic Devices or Brace: No Gait Deviations General Gait Pattern Antalgic,Decreased Stride Length,Decreased Feet Clearance,Step-to Gait Factors Limiting Gait Function Factors Limiting Gait Function Decreased Activity Tolerance, Decreased Strength,Limited Range of Motion,Pain,Poor Balance Comments Gait Comments see mobility comments Stair Climbing Assessment Comments Stair Climbing Comments did not assess. Has 2 platform steps at home PT-Balance Assessment Sitting Balance and Reactions Static Sitting Balance Ability Normal Dynamic Sitting Balance Ability Normal Standing Balance and Reactions Static Standing Balance Ability Good Dynamic Standing Balance Ability Fair Device Used FWW M5 PT-IP Objective Assessments Start: 01/29/20 11:59 Freq: NEEDED Status: Active Protocol: Document 01/29/20 14:05 (Rec: 01/29/20 14:53 [email or web address]) Orientation Orientation/Cognition Level of Alertness Alert Orientation Name,Age,Birthday,Month,Date, Year,Day of Week,Place, Situation Language Function Ability No Deficits Noted Safety Awareness Understands Safety Issues Memory Description No Deficits Noted Gross Range of Motion Upper Extremity ROM Assessment Within Functional Limits Lower Extremity ROM Assessment Right Impaired Impairments 2 - 100 degrees in seated position Strength Upper Extremity Strength Assessment Within Functional Limits Lower Extremity Strength Assessment Right Impaired Hip 4+/5 Knee 3+/5 Coordination Assessment Gross Coordination Gross Coordination WNL Sensation Assessment Sensation Gross Sensation Right UE Impaired Light Touch Impaired Comments Sensation Comments upper thigh remains numb during assessment. Muscle Tone Muscle Tone WNL Yes M6 PT-IP Treatment Start: 01/29/20 11:59 Freq: NEEDED Status: Active Protocol: Document 01/29/20 14:05 (Rec: 01/29/20 14:53 [email or web address]) Physical Therapy Treatment Exercises Exercises Ankle Pumps,Gluteal Sets,Quad Sets,Heel Slides,Straight Leg Raises Education Education Provided Precautions,Weight Bearing Status,Post-Op Packet,Safety M7 PT-IP Assessment and Plan Start: 01/29/20 11:59 Freq: NEEDED Status: Active Protocol: Document 01/29/20 14:05 (Rec: 01/29/20 14:53 [email or web address]) PT Summary Assessment and Plan Potential Rehabilitation Potential Excellent Status of Condition at Evaluation Stable Summary Impairments Pain,ROM,Strength,Balance,Bed Mobility,Transfers,Gait, Activity Tolerance Assessment Summary This is a low complexity evaluation for this 69 yo male s/p POD0 R TKA. PLOF= fully independent without using AD but difficulty for STS and yard work. Upon assessment, pt was able to complete bed mobility, transfer and gait training with CGA FWW. Step to pattern with gait but noticed slightly instability at R knee possibly d/t anesthesia effect. Pt will have to complete 2 platform steps without rails prior to d/c with assistance and outpatient PT. Goals Bed Mobility Goal Standby Assistance Transfer Goal Standby Assistance,Front Wheeled Walker Gait Goal Standby Assistance,Front Wheel Walker Gait Distance 200 Other Goals 2 platform steps without rails Days to Meet Goals 2 Frequency of Treatment Frequency Of Treatment Twice a Day Treatment Plan Physical Therapy Treatment Plan Bed Mobility Training,Transfer Training,Gait Training, Therapeutic Exercise,Balance Retraining,Post Op Education, Discharge Planning,Hot or Cold Pack,Neuromuscular Re-ed Other Recommendations and Next Treatment check vitals Focus knee ROM mobility as lola, 2 Platform steps without rails Recommendations To Nursing Amount of Assist Needed 1 Person Assist Discharge Recommendations PT Discharge Recommendations Home with Assistance, Outpatient PT Transportation Needs at Discharge Private Vehicle
[2020-01-29] MEDS: TAMSULOSIN 0.4 MG CAPSULE PO (17:02)
[2020-01-29] MEDS: SIMVASTATIN 20 MG TABLET PO (17:02)
[2020-01-29] MEDS: APIXABAN 5 MG TABLET PO (20:19)
[2020-01-29] MEDS: METOPROLOL ER 25 MG TABLET PO (20:19)
[2020-01-29] MEDS: DOCUSATE 100 MG CAPSULE PO (20:19)
--- NOTE | 2020-01-29 22:30 | PC.NURSE ---
1800- Patient had not voided post surgery, bladder scan showed >500ml in bladder and patient complains of pressure. In & out cath produced 1100ml. 2130- Patient has more complaints of a full bladder and unable to void. Bladder scan shows 869ml. In & out cath produced 1150ml.
[2020-01-29] MEDS: OXYCODONE IR 5 MG TABLET PO (23:26)
[2020-01-30] MEDS: OXYCODONE IR 10 MG TABLET PO ×2 (03:14→07:55)
[2020-01-30 05:00] VITALS: BP 117/79; PULSE 92; RESP 18; TEMP 36.6; O2SAT 95
--- NOTE | 2020-01-30 05:38 | PC.NURSE ---
Called Dr. Mckoy to request placement of Cantor due to on going urinary retention. Telephone order rec'd to place Cantor.
[2020-01-30 06:23] LABS: Hematocrit 42.5 % (41-53); Hemoglobin 14.1 g/dL (13.5-17.5)
[2020-01-30 07:12] VITALS: BP 123/80; PULSE 72; RESP 16; TEMP 36; O2SAT 95
--- NOTE | 2020-01-30 07:49 | P.DS_ITS ---
History of Present Illness History of Present Illness Date Patient Seen: 01/30/20 Time Patient Seen: 07:49 Chief complaint: Right Total Knee Arthroplasty *OPB* Narrative: The history and physical is contained in the chart previously completed note. Please refer to that note for this information. Discharge Providers Provider Discharge Date: 01/30/20 Primary care physician: Vidal Carpio MD Consults: 01/29/20 10:38 Consult to Discharge Planning Routine Comment: Consult to Physical Therapy Evaluate & Treat Comment: Physician Instructions: postop TKA protocol 01/30/20 07:42 Consult to Physician Routine Comment: Consulting Provider: Vera Mark Reason for consultation: Urinary retention Has provider been notified: Yes Discharge provider: Blake Mckoy MD Summary Hospital Course Discharge Diagnosis: 1. Right knee osteoarthritis 2. Postoperative urinary retention Hospital Course: The patient was admitted to the hospital and taken directly to the operating room on January 29, 2020 where he underwent a right total knee replacement. He was stable postoperatively with minimal pain issues overnight. He did have difficulty voiding spontaneously and after several straight catheterizations a Cantor catheter was placed. He has been ambulatory without difficulty. Pain control is excellent. Status at Discharge Cognitive/behavioral status at discharge: oriented Functional status at discharge: uses cane/walker Overall status at discharge: patient is progressing back to baseline Time Spent with Patient Time spent: Less than 30 minutes Exam Vital Signs (past 8 hours): - 01/30/20 05:00 Temperature 97.9 F Pulse Rate 92 H Respiratory Rate 18 Blood Pressure 117/79 Pulse Oximetry 95 Oxygen Delivery Method Room Air Oxygen Flow Rate 0 Narrative Exam Narrative: Right knee wound is dressed with no drainage on the bandage. Calf is soft. Light touch and motion are intact in the right lower extremity. Objective Labs Result Diagrams: 01/30/20 06:10 Labs: Laboratory Results - last 24 hr 01/30/20 06:10 Hgb 14.1 Hct 42.5 PFSH Medical History (Updated 01/23/20 @ 09:12 by Adela Oleary RN) Atrial flutter Bradycardia Elevated PSA Hearing impaired Hx of venous thrombosis and embolism (01/07/11) Hypertension Kidney stones Mixed hyperlipidemia Osteoarthritis of knee (06/13/13) Personal history of pulmonary embolism (01/07/11) Surgical History (Updated 01/23/20 @ 09:07 by Adela A Bear, RN) Hx of cholecystectomy Family History Father Fam hx-ischem heart disease Social History marital status: number of children: 3 household members: spouse lives independently: Yes caregiver/support person: No housing: house pets and animals: Yes education level: college ([employer] occupational status: other (Retired) Previous occupational history: [employer], [employer] worker. yolanda/taoism: Yazidism leisure activities: exercise and other (Golfing, digging claRodati, visiting neighbor.) Smoking Status: Never smoker Tobacco: How many years used: 0 quit status: quit date established (Never started) second hand exposure: No alcohol intake: former substance use type: does not use and other (Drugs in past.) Discharge Assessment & Plan Assessment and Plan Assessment: The patient is stable postop day 1 status post right total knee replacement although he does have urinary retention requiring catheter placement. Plan of Treatment: Discharge to home today. He will be instructed in the use of a leg bag for his Cantor catheter. We will arrange follow-up as an outpatient with Urology to have his urinary retention addressed. He will be discharged with oxycodone for pain relief. He is anticoagulated at baseline and this will be used for his DVT prophylaxis. Discharge Plan Discharge Plan Patient Disposition: Home Discharge orders & Medications Discharge Orders: Discharge (Order); Ordered 01/30/20 Ordered By: Blake Mckoy Prescriptions: New acetaminophen 325 mg Tablet 650 mg PO TID 30 Days Qty: 180 RF: 0 simvastatin 20 mg Tablet 20 mg PO QPM 40 Days Qty: 40 RF: 0 oxycodone 5 mg Tablet 5 mg PO Q4H PRN (Reason: Pain, Moderate (4-6)) Qty: 40 RF: 0 hydroxyzine pamoate 25 mg Capsule 25 mg PO Q6HR PRN (Reason: Nausea) Qty: 30 RF: 0 Continued tamsulosin [Flomax] 0.4 mg capsule 0.4 mg PO QPM Qty: 90 RF: 3 amlodipine 10 mg tablet 10 mg PO DAILY Qty: 90 RF: 3 metoprolol succinate 25 mg tablet extended release 24 hr 25 mg PO BID Qty: 180 RF: 3 Eliquis 5 mg tablet 5 mg PO BID Qty: 180 RF: 3 ibuprofen 200 mg Capsule 200 - 400 mg PO DAILY PRN (Reason: Pain) RF: 0 ciclopirox 1 % shampoo 1 % Topical TID PRN (Reason: Scalp issue) RF: 0 Discontinued simvastatin 40 mg tablet 40 mg PO QPM Qty: 90 RF: 3 Follow up/Referrals: Vera Mark MD [Physician] - Vidal Carpio MD [Primary Care Provider] - Blake Mckoy MD [Physician] - 2 Weeks Diet/Activity/Treatments Diet: Diet as Tolerated and Regular Activity: You may bear weight as tolerated on your right leg. Cold/Heat Therapy: Apply ice for 15 minutes of every hour as needed to the right knee for pain control. Catheter: 2-way Cantor Catheter comment: Coordinate catheter removal through the offices of Dr. Mark. Skin/Wound/Dressing Care Report to your healthcare provider any signs of infection, such as:: chills, fever, night sweats, increased pain, unusual drainage and unusual redness Dressing: You may remove the Phillip wrap and shower normally 3 days after surgery. Leave the deeper dressing in place until follow-up. If the central strip of the deeper dressing becomes saturated with either water or blood, please call the office to have it changed. Visit Report/Discharge Packet Instructions: How to Care for Your Cantor Catheter -- Male, DI for Knee Replacement Stand Alone Forms: Surgery Discharge Discharge Data Primary Care Provider: Vidal Carpio Attending Provider: Blake Mckoy
[2020-01-30] MEDS: AMLODIPINE 5 MG TABLET 10 MG PO (07:55)
[2020-01-30] MEDS: DOCUSATE 100 MG CAPSULE PO (07:55)
[2020-01-30] MEDS: METOPROLOL ER 25 MG TABLET PO (07:55)
[2020-01-30] MEDS: APIXABAN 5 MG TABLET PO (07:56)
[2020-01-30] MEDS: ACETAMINOPHEN 325 MG TABLET 650 MG PO (07:56)
[2020-01-30 08:10] VITALS: PULSE 95; RESP 15; O2SAT 96
--- NOTE | 2020-01-30 08:56 | PT.IPTN ---
Current Diagnoses Unilateral primary osteoarthritis, right knee (01/29/20) Surgery Performed Operation Date: 01/29/20 07:45 Actual Procedures p Total Knee Arthroplasty(Right) - Blake Mckoy MD Physical Therapy Treatment Note M2 PT-IP Current Condition Start: 01/29/20 11:59 Freq: NEEDED Status: Active Protocol: Document 01/30/20 09:05 MA (Rec: 01/30/20 09:27 MA [email or web address]) Physical Therapy Current Condition Current Condition Evaluation Date 01/29/20 Treatment Diagnosis R TKA, difficulty in walking Onset Date 01/29/20 Weight Bearing Status Weight Bearing Status Weight Bear as Tolerated M3 PT-IP Subjective Start: 01/29/20 11:59 Freq: NEEDED Status: Active Protocol: Document 01/30/20 09:05 MA (Rec: 01/30/20 09:27 MA [email or web address]) Subjective Physical Therapy Visit Type Type Treatment Note Visit Start Time 08:24 Visit Stop Time 08:56 Total Visit Minutes 32 Number of AUTOMOBILE REPOSSESSOR Visits 1 Physical Therapy Visit Comments Patient Comments Pt states he has been doing his exercises in bed all night since he did not sleep well. He also took pain meds about an hour ago Therapy Pain Assessment Pain When Pain Assessed During Exercise Pain Present Pain Present Pain Reported Location Right Knee Intensity 6 Scale Used Numeric (0 - 10) Description Aching,Throbbing Pain Management Techniques Apply Cold,Elevation,Timing of Activity with Medications M4 PT-IP Mobility and Gait Start: 01/29/20 11:59 Freq: NEEDED Status: Active Protocol: Document 01/30/20 09:05 MA (Rec: 01/30/20 09:27 MA [email or web address]) PT-Bed Mobility Assessment Supine to Sit Supine to Sit Standby Assistance Scooting Scooting to Edge of Bed Standby Assistance PT-Transfer Assessment Sit to and From Stand Sit to and from Stand Contact Guard Assistance,Use of Upper Extremities Equipment Transfer Assistive Device Gait Belt,Front Wheeled Walker Orthotic/Prosthetic Devices or Brace: No Transfers Transfer Destination Bed Transfer Technique Stand Step Pivot Transfer Ability Level of Assist Contact Guard Assistance,Use of Upper Extremities Comments Mobility Comments Pt A&Ox4. Agreed to mobilize with AUTOMOBILE REPOSSESSOR. PT reminded pt to use LLE to assist moving RLE to EOB. Head of bed elevated, supine to sit SBA. SIT<>Stand SBA Gait Assessment Gait Gait Assistance Required: Contact Guard Assist Distance (Feet) 200 Able to Maintain Weight Bearing Status Yes During Gait Assistive Devices Assistive Device Gait Belt,Front Wheeled Walker Orthotic/Prosthetic Devices or Brace: No Gait Deviations General Gait Pattern Antalgic,Decreased Stride Length,Decreased Feet Clearance Factors Limiting Gait Function Factors Limiting Gait Function Decreased Activity Tolerance, Decreased Strength,Limited Range of Motion,Pain,Poor Balance Comments Gait Comments Pt able to ambulate 200 feet to PT stairs. CGA. Pt with decreased stride length and height but good balance. Stair Climbing Assessment Evaluation Level of Assist On Stairs Contact Guard Assistance,1 Person Assistance Technique/Endurance Stair Climbing Direction Ascend and Descend Stair Climbing Technique Step to Step Number of Steps Climbed 3 Stair Climbing Set # Repetitions (reps) 2 Comments Stair Climbing Comments Pt performed stairs 2x. First time pt was unbalanced on the descend and used rails so AUTOMOBILE REPOSSESSOR encouraged pt to try again in order to be cleared for home. Pt did well on second descend with more confidence and no rail assist needed. Pt has two small steps at home with no rail. can assist in bringing walker up/down stairs . PT-Balance Assessment Sitting Balance and Reactions Static Sitting Balance Ability Normal Dynamic Sitting Balance Ability Normal Standing Balance and Reactions Static Standing Balance Ability Good Dynamic Standing Balance Ability Good Device Used FWW M5 PT-IP Objective Assessments Start: 01/29/20 11:59 Freq: NEEDED Status: Active Protocol: Document 01/30/20 09:05 MA (Rec: 01/30/20 09:27 MA [email or web address]) Orientation Orientation/Cognition Level of Alertness Alert Orientation Name,Age,Birthday,Month,Date, Year,Day of Week,Place, Situation Language Function Ability No Deficits Noted Safety Awareness Understands Safety Issues Memory Description No Deficits Noted M6 PT-IP Treatment Start: 01/29/20 11:59 Freq: NEEDED Status: Active Protocol: Document 01/30/20 09:05 MA (Rec: 01/30/20 09:27 MA [email or web address]) Physical Therapy Treatment Exercises Exercises Ankle Pumps,Quad Sets,Heel Slides,Straight Leg Raises Education Education Provided Precautions,Weight Bearing Status,Post-Op Packet,Safety M7 PT-IP Assessment and Plan Start: 01/29/20 11:59 Freq: NEEDED Status: Active Protocol: Document 01/30/20 09:05 MA (Rec: 01/30/20 09:27 MA [email or web address]) PT Summary Assessment and Plan Potential Rehabilitation Potential Excellent Status of Condition at Evaluation Stable Summary Impairments Pain,ROM,Strength,Balance,Bed Mobility,Transfers,Gait, Activity Tolerance Assessment Summary Pt was able to ambulate 200 feet with CGA and good balance . Pt with slight LOB on first stair descend needing to use rail. Second stair descend, pt had no LOB and was able to go without rail assistance. Ther ex performed EOB and supine with pt having increase in pain to 6/10 during SLR and quad sets but was able to complete 8 reps of each. Pt has completed goals and is safe for discharge today from therapy standpoint. Pt returned to bed with ice packs , cath, tamar compression devices, and all needs within reach Goals Bed Mobility Goal Standby Assistance Transfer Goal Standby Assistance,Front Wheeled Walker Gait Goal Standby Assistance,Front Wheel Walker Gait Distance 200 Other Goals 2 platform steps without rails Days to Meet Goals 2 Frequency of Treatment Frequency Of Treatment Twice a Day Treatment Plan Physical Therapy Treatment Plan Bed Mobility Training,Transfer Training,Gait Training, Therapeutic Exercise,Balance Retraining,Post Op Education, Discharge Planning,Hot or Cold Pack,Neuromuscular Re-ed Other Recommendations and Next Treatment check vitals Focus knee ROM mobility as lola, 2 Platform steps without rails Recommendations To Nursing Amount of Assist Needed 1 Person Assist Discharge Recommendations PT Discharge Recommendations Home with Assistance, Outpatient PT Transportation Needs at Discharge Private Vehicle
--- NOTE | 2020-01-30 12:08 | PC.NURSE ---
Assess- Patient is discharged. His dressing to knee is cdi, ambulating with 1 person assist. Given oxycodone earlier for pain and helpful. CMS and ppx2.
--- NOTE | 2020-01-30 14:07 | CM.DPNOTE ---
Discharge Planning/Care Management DCPlanning Note: case received and discussed in Team Rounds. A d/c to home order was noted with PT stating that they would work with pt on stairs today before clearing him for d/c. A check in later shows that pt did well with PT and was cleared for home with spouse prn support and OUTPT PT planned. Surgeon: Dr. Mckoy. Scheduled procedure: RTKA Payer: Medicare and Commercial Insurance. Pre-Anesthesia Assessment Start: 01/23/20 08:58 Freq: Status: Discharge Protocol: Document 01/23/20 08:58 [facility] (Rec: 01/23/20 09:26 CAB [id number]) Pre-Anesthesia Assessment Patient Information Reviewed Via Phone Assessment Assessment Completed With Patient Diagnostic Results BMP/CMP,CBC,EKG Comment Labs/EKG @ [facility], COVID screen @ [facility] 01/27/20 Primary Care Provider Vidal Carpio Seen Specialist in Last 12 Months Yes Specialist Seen Orthopedist Primary Language Israeli Parachute Officer Required No Height 190.5 cm Weight 127.913 kg Body Mass Index (BMI) 35.2 Hearing Ability Hard of Hearing,Use of Hearing Aid Visual Assist Magnifying Glass Dentition Type Teeth, Natural Present,Teeth, Missing Barriers to Learning None Comment Front upper teeth are a bridge Hx Anesthesia Reactions No Hx Family Anesthesia Reaction No Hx Malignant Hyperthermia No Hx Blood Transfusions No Anesthesia Review Requested No alcohol intake former Smoking Status Never smoker Substance Use Type does not use Pain Present Pain Reported Musculoskeletal Symptoms Abnormal Gait,Back Pain, Difficulty Walking,Joint Pain History of Falling (Recent or History of No ) Patient is completely paralyzed or No completely immobile Mental Status Oriented to own ability Is patient on oxygen? No Does patient have DUFFY/SOB No Hx Sleep Apnea No Currently Taking a Beta Marlon No Can You Climb a Flight of Stairs Without Yes SOB Hx Chest Pain No Hx SOB No Hx Syncope or Dizziness No Anti-Coagulant Therapy Yes: Eliquis-Advised to hold 5 days prior per PCP Has a Tool Radial Drill Press Set Up Operator No Cardiac Testing No Hx Pacemaker/ICD No Pacemaker Rep Required? No Cardiac Clearance Received Not Applicable Diet Type At Home Regular dysphagia No: No Pork products Bladder Pattern Nocturia Urinary Catheter Present No Hx Urinary Self Catheterization No Diabetes No Hx Drug Resistant Organism No Presence of External or Internal Medical No Devices Have you had any close contact with No someone diagnosed with COVID-19? Marital Status Lives With spouse Prior Living Arrangements House Number of Floors (Floors) One Floor Support System Spouse Patient Discharge Plan Description Return Home Comment Pt advised 1 night length of stay per surgeon Feels Safe in Current Environment Yes Been Physically Hurt or Threatened By a No Person in Current Environment Do you have thoughts of harming yourself None or others? Are you currently considering suicide? No Do you have a plan to hurt yourself or No Plan others? Do You Have Any Spiritual Beliefs That No May Affect Your HC Choices? Do You Have Any Cultural Practices That No May Affect Your HC Choices? Comment Congregational Who Can We Speak to About Patient's Care only Identifying Code for Release of Patient Declines to issue Information Health Care Proxy/Next of Kin Darline () Health Care Proxy or [phone] Emergency Contact Name Darline () Emergency Contact or [phone] Advance Directives? Yes: DPOA, HC Directive Power of Security System Engineer Yes Power of Security System Engineer Name Darline () Power of Security System Engineer or [phone] PAC Instructions Durable medical equipment, Medications to take/avoid, Nasal antibiotic,No ETOH/ petroleum product on skin DOS, NPO,Post-op transportation,Pre -surgical wash,Sensory aids, Sturdy shoes/comfortable clothes,Do not bring valuables and remove jewelry
== END 2020-01-30 11:45 | disposition home or self-care (01) ==
LOC: OR 06:12 → AC 06:14
PROVIDERS: PCP Internal Medicine; Referring Provider Internal Medicine; Visit Provider Orthopaedic Surgery
PROC: 0SRC0JZ Replacement of Right Knee Joint with Synthetic Substitute, Open Approach (ICD-10-PCS; CPT 27447; principal; 2020-01-29 07:45)
DX: M17.11 Unilateral primary osteoarthritis, right knee (principal); Z79.01 Long term (current) use of anticoagulants; Z86.718 Personal history of other venous thrombosis and embolism; Z86.711 Personal history of pulmonary embolism; I10 Essential (primary) hypertension
CPT/HCPCS: 27447; 36415; 73560; 85014; 85018; 94760; 94762; 97110; 97116; 97161; C1776; C9290; J0690; J1100; J2250; J2270; J2274; J2405; J2704; J3010

== ENCOUNTER → 2020-03-28 06:53 | Outpatient (CLI) | payer MEDICARE, OTHER, SELFPAY ==
[2020-02-08 08:51] VITALS: BMI 35.2
[2020-03-28 08:58] LABS: Prostate Specific Antigen 4.19 ng/mL (0.10-4.00)
[2020-04-01 09:15] LABS: Fecal Immunochemical Test Negative (Negative)
== END ==
PROVIDERS: PCP Internal Medicine; Referring Provider Internal Medicine; Visit Provider Specialist
DX: N13.8 Other obstructive and reflux uropathy (principal); N40.1 Benign prostatic hyperplasia with lower urinary tract symptoms; Z12.11 Encounter for screening for malignant neoplasm of colon
CPT/HCPCS: 36415; 82274; 84153

== ENCOUNTER → 2020-03-29 17:05 | Outpatient (CLI) | payer MEDICARE, OTHER, SELFPAY ==
[2020-02-08 08:51] VITALS: BMI 35.2
[2020-03-29] MEDS: COVID-19 VACC #1, MRNA(MOD) 100 MCG/0.5 ML VIAL IM (17:14)
== END ==
PROVIDERS: PCP Internal Medicine; Visit Provider Internal Medicine
DX: Z23 Encounter for immunization (principal)
CPT/HCPCS: 0011A; 91301

== ENCOUNTER 2020-04-02 08:15 | Outpatient (RCR) | payer MEDICARE, OTHER, SELFPAY ==
--- NOTE | 2020-01-22 17:51 | PT.OIE ---
Current Diagnoses Unilateral primary osteoarthritis, right knee (01/22/20) Pain in right knee (01/22/20) Stiffness of right knee, not elsewhere classified (01/22/20) Past Medical History (Last Updated 01/22/20 @ 09:07 by Vidal Carpio MD) Atrial flutter Elevated PSA Hx of venous thrombosis and embolism (01/07/11) Hypertension Mixed hyperlipidemia Osteoarthritis of knee (06/13/13) Personal history of pulmonary embolism (01/07/11) Visit Care Team Role Provider Type Vidal Carpio MD Primary Care Provider Physician Specialty: Internal Medicine Address: [address] [place] [address], [address], [address] Email: [email or web address] Blake Mckoy MD Attending Provider Physician Referring Provider Specialty: Orthopedic Surgery Address: [address] [place] [address], [id number] Email: [email or web address] Physical Therapy Initial Evaluation PT-OP-A Visit Information Start: 01/22/20 17:32 Freq: Status: Active Protocol: Document 01/22/20 15:15 DCW (Rec: 01/22/20 17:49 [facility] [id number]) Out-Patient Physical Therapy Visit Information Visit Information Visit Type Initial Evaluation Visit Start Time 15:15 Visit Stop Time 15:45 Total Visit Minutes 30 Visit Number 1 Number of WORD PROCESSOR TECHNICIAN Visits 0 Evaluation Information Evaluation Date 01/22/20 PT-OP-B Current Condition Start: 01/22/20 17:32 Freq: Status: Active Protocol: Document 01/22/20 15:15 DCW (Rec: 01/22/20 17:49 [facility] [id number]) Current Condition History of Current Condition Onset Date Multi-year history Current Complaints Right knee discomfort History of Current Condition Pt is a 69 year old male presenting for a pre-op evaluation prior to his right TKA scheduled on 01/29/20. Pt notes he typically walks every day, able to go any where from 2-5 miles, but about five months ago, something happened to my knee when he was out walking, which caused significant pain and limited his ambulation. Pt notes he would have gotten it replaced earlier, but covid ruined that plan. Pt is motivated to return to his normal levels of function. Future Testing and Treatments Planned R TKA 01/29/20 Treatment Goals Patient/Caregiver Goals Return to taking a 2+ mile walk daily PT-OP-C Subjective Start: 01/22/20 17:32 Freq: Status: Active Protocol: Document 01/22/20 15:15 DCW (Rec: 01/22/20 17:49 DCW [id number]) OP-PT Subjective Patient Comments Patient Comments I'm doing better right now, and could probably make due without having the surgery, but I just want to get it over with. Patient Questionnaires Lower Extremity Functional Scale LEFS Score 73.75% LEFS Impairment 20 to 39% Impaired (Score 48- 62) OP-PT Pain Assessment Pain Assessment Grid Paper Pain Assessment Grid Completed Yes Location Right Knee Intensity 4 Scale Used Numeric (0 - 10) PT-OP-G Mobility & Gait Start: 01/22/20 17:32 Freq: Status: Active Protocol: Document 01/22/20 15:15 DCW (Rec: 01/22/20 17:49 DCW [id number]) OP Mobility Evaluation Bed Mobility Rolling Independent Supine to and from Sit Independent Transfers Sit to Stand Independent /c L LE only OP Gait Assessment Gait Gait Assistance Required: Independent Distance (Feet) 100 Able to Maintain Weight Bearing Status Yes During Gait Assistive Devices Assistive Device Front Wheeled Walker Gait Deviations General Gait Pattern Within Normal Limits Stair Climbing Evaluation Evaluation Level of Assist On Stairs Independent Technique/Endurance Stair Climbing Direction Ascend and Descend Stair Climbing Technique Step to Step PT-OP-K Range of Motion Start: 01/22/20 17:32 Freq: Status: Active Protocol: Document 01/22/20 15:15 DCW (Rec: 01/22/20 17:49 DCW [id number]) Knee Goniometric Range of Motion Knee Right Knee ROM WFL Yes Patient Position Sitting Flexion Active (degrees) 128 Extension Active (degrees) 0 Left Knee ROM WFL Yes Patient Position Sitting Flexion Active (degrees) 130 Extension Active (degrees) 0 PT-OP-M Strength Start: 01/22/20 17:32 Freq: Status: Active Protocol: Document 01/22/20 15:15 DCW (Rec: 01/22/20 17:49 DCW [id number]) Hip Strength Hip Manual Muscle Testing Right Flexion (L2) 5 Normal Abduction 5 Normal Adduction 5 Normal Left Flexion (L2) 5 Normal Abduction 5 Normal Adduction 5 Normal Knee Strength Knee Manual Muscle Testing Right Flexion (S2) 5 Normal Extension (L3) 5 Normal Left Flexion (S2) 5 Normal Extension (L3) 5 Normal PT-OP-T Assessment and Plan Start: 01/22/20 17:32 Freq: Status: Active Protocol: Document 01/22/20 15:15 DCW (Rec: 01/22/20 17:41 DCW [id number]) Physical Therapy Assessment Rehab Potential Rehabilitation Potential Excellent Evaluation Complexity Number of Personal Factors/Comorbidities 0 Number of Body Systems Impaired 1-2 Clinical Presentation at Evaluation Stable Goals Three Impairment Pt unable to ambulate his usual two mile walk Correctional Treatment Specialist Goal (LTG) Pt to report return of ability to ambulate two miles without increased pain using least restrictive assistive device LTG Duration 03/23/20 Two Impairment ROM Short Term Goal (STG) Pt to display a post-op right knee ROM of 15?-100? STG Duration 02/21/20 Detention Goal (LTG) Pt to display a post-op right knee ROM of 0?-120? to allow for fully independent ADLs LTG Duration 03/23/20 One Impairment Pt does not have an appropriate home exercise program Short Term Goal (STG) Pt to be independent and compliant with an appropriate post-op HEP STG Duration 02/21/20 Assessment Summary Assessment Pt presents for a pre-op evaluation one week before undergoing a right TKA. Pt currently has great strength ( 5/5) in bilateral LEs, and ROM WNL. Pt demonstrated an ability to ambulate with the use of a FWW with less than full weight bearing through the right LE. Pt able to both demonstrate and repeat instructions for ascending and descending stairs. Pt able to sit->stand from a low seat without use of hands using only his left leg. Pt displayed ability to exit/ enter bed with no difficulty. Pt received education of post- op activities and expectations , and indicated a proper understanding. Pt will undergo R TKA on 01/29/20, and return for a post-op reevaluation on 02/05/20. Physical Therapy Plan Frequency and Duration Frequency of Treatment 2x/Week Therapeutic Interventions Therapeutic Interventions Balance Training,Gait Training ,Home Exercise Program,Joint Mobilizations,Manual Therapy, Neuromuscular Re-education, Patient/Caregiver Education, Self-Care/Home Management,Soft Tissue Mobilization,Taping, Therapeutic Activities, Therapeutic Exercises Modalities Cold Pack/Ice Massage,Electric Stimulation,Hot Packs, Ultrasound Next Visit Focus/Plan Next Note Type Re-Evaluation Next Visit Plan Post-op TKA re-evaluation
--- NOTE | 2020-01-22 17:51 | PT.OPPOC ---
Physical, Occupational & Speech Therapy At [facility] Current Diagnoses Unilateral primary osteoarthritis, right knee (01/22/20) Pain in right knee (01/22/20) Stiffness of right knee, not elsewhere classified (01/22/20) Visit Care Team Role Provider Type Vidal Carpio MD Primary Care Provider Physician Specialty: Internal Medicine Address: [address] [place] [address], [facility] [address], [address] Email: [email or web address] Blake Mckoy MD Attending Provider Physician Referring Provider Specialty: Orthopedic Surgery Address: [address] [place] [address], [address] Email: [email or web address] Plan Of Care PT-OP-T Assessment and Plan Start: 01/22/20 17:32 Freq: Status: Active Protocol: Document 01/22/20 15:15 DCW (Rec: 01/22/20 17:41 DCW [id number]) Physical Therapy Assessment Rehab Potential Rehabilitation Potential Excellent Evaluation Complexity Number of Personal Factors/Comorbidities 0 Number of Body Systems Impaired 1-2 Clinical Presentation at Evaluation Stable Goals Three Impairment Pt unable to ambulate his usual two mile walk [facility] Goal (LTG) Pt to report return of ability to ambulate two miles without increased pain using least restrictive assistive device LTG Duration 03/23/20 Two Impairment ROM Short Term Goal (STG) Pt to display a post-op right knee ROM of 15?-100? STG Duration 02/21/20 [facility] Goal (LTG) Pt to display a post-op right knee ROM of 0?-120? to allow for fully independent ADLs LTG Duration 03/23/20 One Impairment Pt does not have an appropriate home exercise program Short Term Goal (STG) Pt to be independent and compliant with an appropriate post-op HEP STG Duration 02/21/20 Assessment Summary Assessment Pt presents for a pre-op evaluation one week before undergoing a right TKA. Pt currently has great strength ( 5/5) in bilateral LEs, and ROM WNL. Pt demonstrated an ability to ambulate with the use of a FWW with less than full weight bearing through the right LE. Pt able to both demonstrate and repeat instructions for ascending and descending stairs. Pt able to sit->stand from a low seat without use of hands using only his left leg. Pt displayed ability to exit/ enter bed with no difficulty. Pt received education of post- op activities and expectations , and indicated a proper understanding. Pt will undergo R TKA on 01/29/20, and return for a post-op reevaluation on 02/05/20. Physical Therapy Plan Frequency and Duration Frequency of Treatment 2x/Week Therapeutic Interventions Therapeutic Interventions Balance Training,Gait Training ,Home Exercise Program,Joint Mobilizations,Manual Therapy, Neuromuscular Re-education, Patient/Caregiver Education, Self-Care/Home Management,Soft Tissue Mobilization,Taping, Therapeutic Activities, Therapeutic Exercises Modalities Cold Pack/Ice Massage,Electric Stimulation,Hot Packs, Ultrasound Next Visit Focus/Plan Next Note Type Re-Evaluation Next Visit Plan Post-op TKA re-evaluation Electronically Signed by: Harish Gandara, PT 01/22/20 [id number] Please Sign and Return: I have reviewed this Plan of Care and certify that the skilled therapy services above are required to meet the patient?s needs. Physician Signature Date Printed Name and Credentials Clinical Instructor Signature Printed Name and Credentials
--- NOTE | 2020-02-05 10:14 | PT.OTN ---
Current Diagnoses Unilateral primary osteoarthritis, right knee (02/05/20) Pain in right knee (02/05/20) Stiffness of right knee, not elsewhere classified (02/05/20) Physical Therapy Treatment Note PT-OP-A Visit Information Start: 01/22/20 17:32 Freq: Status: Active Protocol: Document 02/05/20 08:15 AMB (Rec: 02/05/20 10:14 AMB [id number]) Out-Patient Physical Therapy Visit Information Visit Information Visit Type Re-Evaluation Visit Start Time 08:15 Visit Stop Time 09:00 Total Visit Minutes 45 Visit Number 2 PT-OP-B Current Condition Start: 01/22/20 17:32 Freq: Status: Active Protocol: Document 01/22/20 15:15 DCW (Rec: 01/22/20 17:49 DCW [id number]) Current Condition History of Current Condition Onset Date Multi-year history Current Complaints Right knee discomfort History of Current Condition Pt is a 69 year old male presenting for a pre-op evaluation prior to his right TKA scheduled on 01/29/20. Pt notes he typically walks every day, able to go any where from 2-5 miles, but about five months ago, something happened to my knee when he was out walking, which caused significant pain and limited his ambulation. Pt notes he would have gotten it replaced earlier, but covid ruined that plan. Pt is motivated to return to his normal levels of function. Future Testing and Treatments Planned R TKA 01/29/20 Treatment Goals Patient/Caregiver Goals Return to taking a 2+ mile walk daily PT-OP-C Subjective Start: 01/22/20 17:32 Freq: Status: Active Protocol: Document 02/05/20 08:15 AMB (Rec: 02/05/20 10:14 AMB [id number]) OP-PT Subjective Patient Comments Patient Comments Disappointed I have to still have this catheter, pain meds are giving me really weird dreams so mostly just taking tylenol and ibuprofen PT-OP-G Mobility & Gait Start: 01/22/20 17:32 Freq: Status: Active Protocol: Document 01/22/20 15:15 DCW (Rec: 01/22/20 17:49 DCW [id number]) OP Mobility Evaluation Bed Mobility Rolling Independent Supine to and from Sit Independent Transfers Sit to Stand Independent /c L LE only OP Gait Assessment Gait Gait Assistance Required: Independent Distance (Feet) 100 Able to Maintain Weight Bearing Status Yes During Gait Assistive Devices Assistive Device Front Wheeled Walker Gait Deviations General Gait Pattern Within Normal Limits Stair Climbing Evaluation Evaluation Level of Assist On Stairs Independent Technique/Endurance Stair Climbing Direction Ascend and Descend Stair Climbing Technique Step to Step PT-OP-K Range of Motion Start: 01/22/20 17:32 Freq: Status: Active Protocol: Document 02/05/20 08:20 AMB (Rec: 02/05/20 08:28 AMB [id number]) Knee Goniometric Range of Motion Knee Right Flexion Active (degrees) 90 Flexion Passive (degrees) 100 Extension Active (degrees) 20 PT-OP-M Strength Start: 01/22/20 17:32 Freq: Status: Active Protocol: Document 01/22/20 15:15 DCW (Rec: 01/22/20 17:49 DCW [id number]) Hip Strength Hip Manual Muscle Testing Right Flexion (L2) 5 Normal Abduction 5 Normal Adduction 5 Normal Left Flexion (L2) 5 Normal Abduction 5 Normal Adduction 5 Normal Knee Strength Knee Manual Muscle Testing Right Flexion (S2) 5 Normal Extension (L3) 5 Normal Left Flexion (S2) 5 Normal Extension (L3) 5 Normal PT-OP-Q Treatments Start: 01/22/20 17:32 Freq: Status: Active Protocol: Document 02/05/20 08:15 AMB (Rec: 02/05/20 10:14 AMB [id number]) Cardio Equipment Recumbent Stepper (Sci-Fit) Duration (Minutes) 5 Resistance 2 Therapeutic Exercises Supine Exercises 2 Supine Exercise Name SAQ Reps/Minutes 10 1 Supine Exercise Name heel slides Reps/Minutes 5 Manual Therapy Treatment Soft Tissue Mobilization 1 Body Location manual stretch and edema massage PT-OP-T Assessment and Plan Start: 01/22/20 17:32 Freq: Status: Active Protocol: Document 02/05/20 08:15 AMB (Rec: 02/05/20 10:14 AMB [id number]) Physical Therapy Assessment Assessment Summary Assessment Donaldo's ROM is coming along, although we will have to watch extensor lag, as quads are quite weak and extension is stiff, as would be expected. Pt has never used a SPC, so will need to practic in clinic before he uses it at home. Physical Therapy Plan Next Visit Focus/Plan Next Note Type Treatment Note Next Visit Plan biodex/sci fit, review HEP consider adding in sit to stand if form is good, consider SPC training
--- NOTE | 2020-02-05 10:24 | PT.OTRE ---
Current Diagnoses Unilateral primary osteoarthritis, right knee (02/05/20) Pain in right knee (02/05/20) Stiffness of right knee, not elsewhere classified (02/05/20) Past Medical History (Last Updated 01/23/20 @ 09:12 by Adela Oleary RN) Atrial flutter Bradycardia Elevated PSA Hearing impaired Hx of venous thrombosis and embolism (01/07/11) Hypertension Kidney stones Mixed hyperlipidemia Osteoarthritis of knee (06/13/13) Personal history of pulmonary embolism (01/07/11) Surgical History (Last Updated 01/23/20 @ 09:07 by Adela Oleary RN) Hx of cholecystectomy Visit Care Team Role Provider Type Vidal Carpio MD Primary Care Provider Physician Specialty: Internal Medicine Address: [address] [place] [address], [address], [address] Email: [email or web address] Blake Mckoy MD Attending Provider Physician Referring Provider Specialty: Orthopedic Surgery Address: [address] [place] [address], [id number] Email: [email or web address] Physical Therapy Re-Evaluation PT-OP-A Visit Information Start: 01/22/20 17:32 Freq: Status: Active Protocol: Document 02/05/20 08:15 AMB (Rec: 02/05/20 10:14 AMB [id number]) Out-Patient Physical Therapy Visit Information Visit Information Visit Type Re-Evaluation Visit Start Time 08:15 Visit Stop Time 09:00 Total Visit Minutes 45 Visit Number 2 PT-OP-B Current Condition Start: 01/22/20 17:32 Freq: Status: Active Protocol: Document 01/22/20 15:15 DCW (Rec: 01/22/20 17:49 DCW [id number]) Current Condition History of Current Condition Onset Date Multi-year history Current Complaints Right knee discomfort History of Current Condition Pt is a 69 year old male presenting for a pre-op evaluation prior to his right TKA scheduled on 01/29/20. Pt notes he typically walks every day, able to go any where from 2-5 miles, but about five months ago, something happened to my knee when he was out walking, which caused significant pain and limited his ambulation. Pt notes he would have gotten it replaced earlier, but covid ruined that plan. Pt is motivated to return to his normal levels of function. Future Testing and Treatments Planned R TKA 01/29/20 Treatment Goals Patient/Caregiver Goals Return to taking a 2+ mile walk daily PT-OP-C Subjective Start: 01/22/20 17:32 Freq: Status: Active Protocol: Document 02/05/20 08:15 AMB (Rec: 02/05/20 10:14 AMB [id number]) OP-PT Subjective Patient Comments Patient Comments Disappointed I have to still have this catheter, pain meds are giving me really weird dreams so mostly just taking tylenol and ibuprofen PT-OP-G Mobility & Gait Start: 01/22/20 17:32 Freq: Status: Active Protocol: Document 02/05/20 08:15 AMB (Rec: 02/05/20 10:23 AMB [id number]) OP Gait Assessment Comments Gait Comments Antalgic gait with FWW PT-OP-K Range of Motion Start: 01/22/20 17:32 Freq: Status: Active Protocol: Document 02/05/20 08:20 AMB (Rec: 02/05/20 08:28 AMB [id number]) Knee Goniometric Range of Motion Knee Measured in Degrees Right Flexion Active (degrees) 90 Flexion Passive (degrees) 100 Extension Active (degrees) 20 PT-OP-M Strength Start: 01/22/20 17:32 Freq: Status: Active Protocol: Document 02/05/20 08:15 AMB (Rec: 02/05/20 10:23 AMB [id number]) Knee Strength Knee Manual Muscle Testing Right Flexion (S2) 3 Fair Extension (L3) 3- Fair- PT-OP-Q Treatments Start: 01/22/20 17:32 Freq: Status: Active Protocol: Document 02/05/20 08:15 AMB (Rec: 02/05/20 10:14 AMB [id number]) Cardio Equipment Recumbent Stepper (Sci-Fit) Duration (Minutes) 5 Resistance 2 Therapeutic Exercises Supine Exercises 2 Supine Exercise Name SAQ Reps/Minutes 10 1 Supine Exercise Name heel slides Reps/Minutes 5 Manual Therapy Treatment Soft Tissue Mobilization 1 Body Location manual stretch and edema massage PT-OP-T Assessment and Plan Start: 01/22/20 17:32 Freq: Status: Active Protocol: Document 02/05/20 08:15 AMB (Rec: 02/05/20 10:14 AMB [id number]) Physical Therapy Assessment Goals Three Impairment Pt unable to ambulate his usual two mile walk Mcc Goal (LTG) Pt to report return of ability to ambulate two miles without increased pain using least restrictive assistive device LTG Duration 03/23/20 Two Impairment ROM Short Term Goal (STG) Pt to display a post-op right knee ROM of 15?-100? STG Duration 02/21/20 Adjuster Piano Action Goal (LTG) Pt to display a post-op right knee ROM of 0?-120? to allow for fully independent ADLs LTG Duration 03/23/20 One Impairment Pt does not have an appropriate home exercise program Short Term Goal (STG) Pt to be independent and compliant with an appropriate post-op HEP STG Duration 02/21/20 Assessment Summary Assessment Donaldo's ROM is coming along, although we will have to watch extensor lag, as quads are quite weak and extension is stiff, as would be expected. Pt has never used a SPC, so will need to practic in clinic before he uses it at home. Physical Therapy Plan Frequency and Duration Frequency of Treatment 2x/Week Duration of Treatment 8 weeks Plan of Care Start Date 02/05/20 Plan of Care End Date 04/01/20 Therapeutic Interventions Therapeutic Interventions Balance Training,Gait Training ,Home Exercise Program,Joint Mobilizations,Manual Therapy, Neuromuscular Re-education, Patient/Caregiver Education, Self-Care/Home Management,Soft Tissue Mobilization,Taping, Therapeutic Activities, Therapeutic Exercises Modalities Cold Pack/Ice Massage,Electric Stimulation,Hot Packs, Ultrasound Next Visit Focus/Plan Next Note Type Treatment Note Next Visit Plan biodex/sci fit, review HEP consider adding in sit to stand if form is good, consider SPC training
--- NOTE | 2020-02-05 10:24 | PT.OPPOC ---
Physical, Occupational & Speech Therapy At [facility] Current Diagnoses Unilateral primary osteoarthritis, right knee (02/05/20) Pain in right knee (02/05/20) Stiffness of right knee, not elsewhere classified (02/05/20) Visit Care Team Role Provider Type Vidal Carpio MD Primary Care Provider Physician Specialty: Internal Medicine Address: [address] [place] [address], [facility] [address], [place], [address] Email: [email or web address] Blake Mckoy MD Attending Provider Physician Referring Provider Specialty: Orthopedic Surgery Address: [address] [place] [address], [place], [address] Email: [email or web address] Plan Of Care PT-OP-T Assessment and Plan Start: 01/22/20 17:32 Freq: Status: Active Protocol: Document 02/05/20 08:15 AMB (Rec: 02/05/20 10:14 AMB [id number]) Physical Therapy Assessment Goals Three Impairment Pt unable to ambulate his usual two mile walk Custodial Goal (LTG) Pt to report return of ability to ambulate two miles without increased pain using least restrictive assistive device LTG Duration 03/23/20 Two Impairment ROM Short Term Goal (STG) Pt to display a post-op right knee ROM of 15?-100? STG Duration 02/21/20 Custodial Goal (LTG) Pt to display a post-op right knee ROM of 0?-120? to allow for fully independent ADLs LTG Duration 03/23/20 One Impairment Pt does not have an appropriate home exercise program Short Term Goal (STG) Pt to be independent and compliant with an appropriate post-op HEP STG Duration 02/21/20 Assessment Summary Assessment Donaldo's ROM is coming along, although we will have to watch extensor lag, as quads are quite weak and extension is stiff, as would be expected. Pt has never used a SPC, so will need to practic in clinic before he uses it at home. Physical Therapy Plan Frequency and Duration Frequency of Treatment 2x/Week Duration of Treatment 8 weeks Plan of Care Start Date 02/05/20 Plan of Care End Date 04/01/20 Therapeutic Interventions Therapeutic Interventions Balance Training,Gait Training ,Home Exercise Program,Joint Mobilizations,Manual Therapy, Neuromuscular Re-education, Patient/Caregiver Education, Self-Care/Home Management,Soft Tissue Mobilization,Taping, Therapeutic Activities, Therapeutic Exercises Modalities Cold Pack/Ice Massage,Electric Stimulation,Hot Packs, Ultrasound Next Visit Focus/Plan Next Note Type Treatment Note Next Visit Plan biodex/sci fit, review HEP consider adding in sit to stand if form is good, consider SPC training Plan of Care Dates Plan of Care Start Date 02/05/20 Plan of Care End Date 04/01/20 Electronically Signed by: Loraine Espana, PT 02/05/20 1024 Please Sign and Return: I have reviewed this Plan of Care and certify that the skilled therapy services above are required to meet the patient?s needs. Physician Signature Date Printed Name and Credentials Clinical Instructor Signature Printed Name and Credentials
--- NOTE | 2020-02-07 10:22 | PT.OTN ---
Current Diagnoses Unilateral primary osteoarthritis, right knee (02/07/20) Pain in right knee (02/07/20) Stiffness of right knee, not elsewhere classified (02/07/20) Physical Therapy Treatment Note PT-OP-A Visit Information Start: 01/22/20 17:32 Freq: Status: Active Protocol: Document 02/07/20 08:15 AMB (Rec: 02/07/20 08:22 AMB [id number]) Out-Patient Physical Therapy Visit Information Visit Information Visit Type Treatment Note Visit Start Time 08:15 Visit Stop Time 09:00 Total Visit Minutes 45 Visit Number 3 PT-OP-B Current Condition Start: 01/22/20 17:32 Freq: Status: Active Protocol: Document 01/22/20 15:15 DCW (Rec: 01/22/20 17:49 DCW [id number]) Current Condition History of Current Condition Onset Date Multi-year history Current Complaints Right knee discomfort History of Current Condition Pt is a 69 year old male presenting for a pre-op evaluation prior to his right TKA scheduled on 01/29/20. Pt notes he typically walks every day, able to go any where from 2-5 miles, but about five months ago, something happened to my knee when he was out walking, which caused significant pain and limited his ambulation. Pt notes he would have gotten it replaced earlier, but covid ruined that plan. Pt is motivated to return to his normal levels of function. Future Testing and Treatments Planned R TKA 01/29/20 Treatment Goals Patient/Caregiver Goals Return to taking a 2+ mile walk daily PT-OP-C Subjective Start: 01/22/20 17:32 Freq: Status: Active Protocol: Document 02/07/20 08:15 AMB (Rec: 02/07/20 08:22 AMB [id number]) OP-PT Subjective Patient Comments Patient Comments Sore after last visit for about a day and a half, otherwise doing good. Still doing exercises. PT-OP-G Mobility & Gait Start: 01/22/20 17:32 Freq: Status: Active Protocol: Document 02/05/20 08:15 AMB (Rec: 02/05/20 10:23 AMB [id number]) OP Gait Assessment Comments Gait Comments Antalgic gait with FWW PT-OP-K Range of Motion Start: 01/22/20 17:32 Freq: Status: Active Protocol: Document 02/05/20 08:20 AMB (Rec: 02/05/20 08:28 AMB [id number]) Knee Goniometric Range of Motion Knee Right Flexion Active (degrees) 90 Flexion Passive (degrees) 100 Extension Active (degrees) 20 PT-OP-M Strength Start: 01/22/20 17:32 Freq: Status: Active Protocol: Document 02/05/20 08:15 AMB (Rec: 02/05/20 10:23 AMB [id number]) Knee Strength Knee Manual Muscle Testing Right Flexion (S2) 3 Fair Extension (L3) 3- Fair- PT-OP-Q Treatments Start: 01/22/20 17:32 Freq: Status: Active Protocol: Document 02/07/20 07:30 AMB (Rec: 02/07/20 10:05 AMB [id number]) Cardio Equipment Recumbent Stepper (Sci-Fit) Duration (Minutes) 5 Resistance 2 Gym Equipment Shuttle Recovery Unilateral Squats Resistance 25 Shuttle Recovery Platform Stable Reps/Time 10 Bilateral Squats Resistance 50 Shuttle Recovery Platform Stable Reps/Time 2x12 Therapeutic Exercises Supine Exercises 3 Supine Exercise Name knee extension stretch with towel roll under ankle Reps/Minutes 20x2 2 Supine Exercise Name SAQ Reps/Minutes 10 1 Supine Exercise Name heel slides Reps/Minutes 5 Gait Training Gait Activity 2 Description SPC Comments training on sequencing cane 1 Description FWW Comments adjusted higher try to avoid bending over it PT-OP-T Assessment and Plan Start: 01/22/20 17:32 Freq: Status: Active Protocol: Document 02/07/20 07:30 AMB (Rec: 02/07/20 10:05 AMB [id number]) Physical Therapy Assessment Assessment Summary Assessment Donaldo did well with SPC, but recommended continuing to use FWW in the community and at night. Pt needs to continue to work on not weightbearing too much through FWW. Physical Therapy Plan Next Visit Focus/Plan Next Note Type Treatment Note Next Visit Plan review SAQ and knee extension stretch with towel under ankle
--- NOTE | 2020-02-12 10:53 | PT.OTN ---
Current Diagnoses Unilateral primary osteoarthritis, right knee (02/12/20) Pain in right knee (02/12/20) Stiffness of right knee, not elsewhere classified (02/12/20) Physical Therapy Treatment Note PT-OP-A Visit Information Start: 01/22/20 17:32 Freq: Status: Active Protocol: Document 02/12/20 08:15 AMB (Rec: 02/12/20 09:00 AMB [id number]) Out-Patient Physical Therapy Visit Information Visit Information Visit Type Treatment Note Visit Start Time 08:15 Visit Stop Time 09:00 Total Visit Minutes 45 Visit Number 4 PT-OP-B Current Condition Start: 01/22/20 17:32 Freq: Status: Active Protocol: Document 01/22/20 15:15 DCW (Rec: 01/22/20 17:49 DCW [id number]) Current Condition History of Current Condition Onset Date Multi-year history Current Complaints Right knee discomfort History of Current Condition Pt is a 69 year old male presenting for a pre-op evaluation prior to his right TKA scheduled on 01/29/20. Pt notes he typically walks every day, able to go any where from 2-5 miles, but about five months ago, something happened to my knee when he was out walking, which caused significant pain and limited his ambulation. Pt notes he would have gotten it replaced earlier, but covid ruined that plan. Pt is motivated to return to his normal levels of function. Future Testing and Treatments Planned R TKA 01/29/20 Treatment Goals Patient/Caregiver Goals Return to taking a 2+ mile walk daily PT-OP-C Subjective Start: 01/22/20 17:32 Freq: Status: Active Protocol: Document 02/12/20 08:15 AMB (Rec: 02/12/20 09:00 AMB [id number]) OP-PT Subjective Patient Comments Patient Comments Walking around the house with the cane since , pain levels are better, but sleeping is still a problem, got pretty tired with medical appointments last week to remove catheter but did get back to exercises over the weekend. PT-OP-G Mobility & Gait Start: 01/22/20 17:32 Freq: Status: Active Protocol: Document 02/05/20 08:15 AMB (Rec: 02/05/20 10:23 AMB [id number]) OP Gait Assessment Comments Gait Comments Antalgic gait with FWW PT-OP-K Range of Motion Start: 01/22/20 17:32 Freq: Status: Active Protocol: Document 02/05/20 08:20 AMB (Rec: 02/05/20 08:28 AMB [id number]) Knee Goniometric Range of Motion Knee Right Flexion Active (degrees) 90 Flexion Passive (degrees) 100 Extension Active (degrees) 20 PT-OP-M Strength Start: 01/22/20 17:32 Freq: Status: Active Protocol: Document 02/05/20 08:15 AMB (Rec: 02/05/20 10:23 AMB [id number]) Knee Strength Knee Manual Muscle Testing Right Flexion (S2) 3 Fair Extension (L3) 3- Fair- PT-OP-Q Treatments Start: 01/22/20 17:32 Freq: Status: Active Protocol: Document 02/12/20 08:15 AMB (Rec: 02/12/20 10:52 AMB [id number]) Cardio Equipment Recumbent Stepper (Sci-Fit) Duration (Minutes) 6 Resistance 2 Gym Equipment Shuttle Recovery Unilateral Squats Resistance 25 Shuttle Recovery Platform Stable Reps/Time 10 Bilateral Squats Resistance 50 Shuttle Recovery Platform Stable Reps/Time 2x12 Therapeutic Exercises Supine Exercises 3 Supine Exercise Name knee extension stretch with towel roll under ankle Reps/Minutes 20x2 2 Supine Exercise Name SAQ Reps/Minutes 10 1 Supine Exercise Name heel slides Reps/Minutes 5 Sitting Exercises 1 Sitting Exercise Name sit to stand Comments 2x10 Gait Training Gait Activity 3 Description SPC training Comments on stairs- step over step with railing, step to step with SPC 2 Description SPC Comments training on sequencing cane Manual Therapy Treatment Soft Tissue Mobilization 1 Body Location manual stretch and edema massage PT-OP-T Assessment and Plan Start: 01/22/20 17:32 Freq: Status: Active Protocol: Document 02/12/20 08:15 AMB (Rec: 02/12/20 09:00 AMB [id number]) Physical Therapy Assessment Assessment Summary Assessment Donaldo did well with SPC, so ok using in the community. Would recommend continued rail usage on stairs. continues to be tight into extension, but slowly improving. Physical Therapy Plan Next Visit Focus/Plan Next Note Type Treatment Note Next Visit Plan review SAQ and knee extension stretch with towel under ankle
--- NOTE | 2020-02-14 10:10 | PT.OTN ---
Current Diagnoses Unilateral primary osteoarthritis, right knee (02/14/20) Pain in right knee (02/14/20) Stiffness of right knee, not elsewhere classified (02/14/20) Physical Therapy Treatment Note PT-OP-A Visit Information Start: 01/22/20 17:32 Freq: Status: Active Protocol: Document 02/14/20 08:14 AMB (Rec: 02/14/20 09:01 AMB [id number]) Out-Patient Physical Therapy Visit Information Visit Information Visit Type Treatment Note Visit Start Time 08:15 Visit Stop Time 09:00 Total Visit Minutes 45 Visit Number 5 PT-OP-B Current Condition Start: 01/22/20 17:32 Freq: Status: Active Protocol: Document 01/22/20 15:15 DCW (Rec: 01/22/20 17:49 DCW [id number]) Current Condition History of Current Condition Onset Date Multi-year history Current Complaints Right knee discomfort History of Current Condition Pt is a 69 year old male presenting for a pre-op evaluation prior to his right TKA scheduled on 01/29/20. Pt notes he typically walks every day, able to go any where from 2-5 miles, but about five months ago, something happened to my knee when he was out walking, which caused significant pain and limited his ambulation. Pt notes he would have gotten it replaced earlier, but covid ruined that plan. Pt is motivated to return to his normal levels of function. Future Testing and Treatments Planned R TKA 01/29/20 Treatment Goals Patient/Caregiver Goals Return to taking a 2+ mile walk daily PT-OP-C Subjective Start: 01/22/20 17:32 Freq: Status: Active Protocol: Document 02/14/20 08:14 AMB (Rec: 02/14/20 09:01 AMB [id number]) OP-PT Subjective Patient Comments Patient Comments Pt is feeling stiff today. PT-OP-G Mobility & Gait Start: 01/22/20 17:32 Freq: Status: Active Protocol: Document 02/05/20 08:15 AMB (Rec: 02/05/20 10:23 AMB [id number]) OP Gait Assessment Comments Gait Comments Antalgic gait with FWW PT-OP-K Range of Motion Start: 01/22/20 17:32 Freq: Status: Active Protocol: Document 11/30/20 08:20 AMB (Rec: 02/05/20 08:28 AMB [id number]) Knee Goniometric Range of Motion Knee Right Flexion Active (degrees) 90 Flexion Passive (degrees) 100 Extension Active (degrees) 20 PT-OP-M Strength Start: 01/22/20 17:32 Freq: Status: Active Protocol: Document 02/05/20 08:15 AMB (Rec: 02/05/20 10:23 AMB [id number]) Knee Strength Knee Manual Muscle Testing Right Flexion (S2) 3 Fair Extension (L3) 3- Fair- PT-OP-Q Treatments Start: 01/22/20 17:32 Freq: Status: Active Protocol: Document 02/14/20 08:14 AMB (Rec: 02/14/20 09:01 AMB [id number]) Cardio Equipment Recumbent Bicycle Duration (Minutes) 6 Resistance 4 Seat Position 14 Therapeutic Exercises Supine Exercises 4 Supine Exercise Name SLR Reps/Minutes 10 3 Supine Exercise Name knee extension stretch with towel roll under ankle Reps/Minutes 20x2 2 Supine Exercise Name SAQ Reps/Minutes 10 Sidelying Exercises 1 Sidelying Exercise Name clamshell Standing Exercises 1 Standing Exercise Name mini squats Reps/Minutes 10 Comments trying to avoid excessive WB on non surgical leg Manual Therapy Treatment Soft Tissue Mobilization 1 Body Location manual stretch and edema massage PT-OP-T Assessment and Plan Start: 01/22/20 17:32 Freq: Status: Active Protocol: Document 02/14/20 08:14 AMB (Rec: 02/14/20 09:01 AMB [id number]) Physical Therapy Assessment Assessment Summary Assessment Encouraged Donaldo to continue using his SPC, as his limping is present when he is not using it. Physical Therapy Plan Next Visit Focus/Plan Next Note Type Treatment Note Next Visit Plan Review quad strengthening, gait training, stairs
--- NOTE | 2020-02-19 09:01 | PT.OTN ---
Current Diagnoses Unilateral primary osteoarthritis, right knee (02/19/20) Pain in right knee (02/19/20) Stiffness of right knee, not elsewhere classified (02/19/20) Physical Therapy Treatment Note PT-OP-A Visit Information Start: 01/22/20 17:32 Freq: Status: Active Protocol: Document 02/19/20 08:15 AMB (Rec: 02/19/20 09:01 AMB [id number]) Out-Patient Physical Therapy Visit Information Visit Information Visit Type Treatment Note Visit Start Time 08:15 Visit Stop Time 09:00 Total Visit Minutes 45 Visit Number 6 PT-OP-B Current Condition Start: 01/22/20 17:32 Freq: Status: Active Protocol: Document 01/22/20 15:15 DCW (Rec: 01/22/20 17:49 DCW [id number]) Current Condition History of Current Condition Onset Date Multi-year history Current Complaints Right knee discomfort History of Current Condition Pt is a 69 year old male presenting for a pre-op evaluation prior to his right TKA scheduled on 01/29/20. Pt notes he typically walks every day, able to go any where from 2-5 miles, but about five months ago, something happened to my knee when he was out walking, which caused significant pain and limited his ambulation. Pt notes he would have gotten it replaced earlier, but covid ruined that plan. Pt is motivated to return to his normal levels of function. Future Testing and Treatments Planned R TKA 01/29/20 Treatment Goals Patient/Caregiver Goals Return to taking a 2+ mile walk daily PT-OP-C Subjective Start: 01/22/20 17:32 Freq: Status: Active Protocol: Document 02/19/20 08:15 AMB (Rec: 02/19/20 09:01 AMB [id number]) OP-PT Subjective Patient Comments Patient Comments Pt is feeling better, he was raking his driveway this weekend and then went fine. PT-OP-G Mobility & Gait Start: 01/22/20 17:32 Freq: Status: Active Protocol: Document 02/05/20 08:15 AMB (Rec: 02/05/20 10:23 AMB [id number]) OP Gait Assessment Comments Gait Comments Antalgic gait with FWW PT-OP-K Range of Motion Start: 01/22/20 17:32 Freq: Status: Active Protocol: Document 02/05/20 08:20 AMB (Rec: 02/05/20 08:28 AMB [id number]) Knee Goniometric Range of Motion Knee Right Flexion Active (degrees) 90 Flexion Passive (degrees) 100 Extension Active (degrees) 20 PT-OP-M Strength Start: 01/22/20 17:32 Freq: Status: Active Protocol: Document 02/05/20 08:15 AMB (Rec: 02/05/20 10:23 AMB [id number]) Knee Strength Knee Manual Muscle Testing Right Flexion (S2) 3 Fair Extension (L3) 3- Fair- PT-OP-Q Treatments Start: 01/22/20 17:32 Freq: Status: Active Protocol: Document 02/19/20 08:15 AMB (Rec: 02/19/20 09:01 AMB [id number]) Therapeutic Exercises Supine Exercises 5 Supine Exercise Name bridges Reps/Minutes 10 4 Supine Exercise Name SLR Reps/Minutes 10 3 Supine Exercise Name knee extension stretch with towel roll under ankle Reps/Minutes 20x2 Manual Therapy Treatment Soft Tissue Mobilization 1 Body Location manual stretch and edema massage Comments started scar massage on upper scar, lower scar is still scabbed. PT-OP-T Assessment and Plan Start: 01/22/20 17:32 Freq: Status: Active Protocol: Document 02/19/20 08:15 AMB (Rec: 02/19/20 09:01 AMB [id number]) Physical Therapy Assessment Assessment Summary Assessment Pt's gait has improved so he no longer needs to use his SPC . Encouraged to continue HEP and icing as needd. Physical Therapy Plan Next Visit Focus/Plan Next Note Type Treatment Note Next Visit Plan Progress strengthening HEP
--- NOTE | 2020-02-21 08:57 | PT.OTN ---
Current Diagnoses Unilateral primary osteoarthritis, right knee (02/21/20) Pain in right knee (02/21/20) Stiffness of right knee, not elsewhere classified (02/21/20) Physical Therapy Treatment Note PT-OP-A Visit Information Start: 01/22/20 17:32 Freq: Status: Active Protocol: Document 02/21/20 08:15 AMB (Rec: 02/21/20 08:32 AMB [id number]) Out-Patient Physical Therapy Visit Information Visit Information Visit Type Treatment Note Visit Start Time 08:15 Visit Stop Time 09:00 Total Visit Minutes 45 Visit Number 7 PT-OP-B Current Condition Start: 01/22/20 17:32 Freq: Status: Active Protocol: Document 01/22/20 15:15 DCW (Rec: 01/22/20 17:49 DCW [id number]) Current Condition History of Current Condition Onset Date Multi-year history Current Complaints Right knee discomfort History of Current Condition Pt is a 69 year old male presenting for a pre-op evaluation prior to his right TKA scheduled on 01/29/20. Pt notes he typically walks every day, able to go any where from 2-5 miles, but about five months ago, something happened to my knee when he was out walking, which caused significant pain and limited his ambulation. Pt notes he would have gotten it replaced earlier, but covid ruined that plan. Pt is motivated to return to his normal levels of function. Future Testing and Treatments Planned R TKA 01/29/20 Treatment Goals Patient/Caregiver Goals Return to taking a 2+ mile walk daily PT-OP-C Subjective Start: 01/22/20 17:32 Freq: Status: Active Protocol: Document 02/21/20 08:15 AMB (Rec: 02/21/20 08:32 AMB [id number]) OP-PT Subjective Patient Comments Patient Comments Pt was sore after last appointment for about a day. PT-OP-G Mobility & Gait Start: 01/22/20 17:32 Freq: Status: Active Protocol: Document 02/05/20 08:15 AMB (Rec: 02/05/20 10:23 AMB [id number]) OP Gait Assessment Comments Gait Comments Antalgic gait with FWW PT-OP-K Range of Motion Start: 01/22/20 17:32 Freq: Status: Active Protocol: Document 02/05/20 08:20 AMB (Rec: 02/05/20 08:28 AMB [id number]) Knee Goniometric Range of Motion Knee Right Flexion Active (degrees) 90 Flexion Passive (degrees) 100 Extension Active (degrees) 20 PT-OP-M Strength Start: 01/22/20 17:32 Freq: Status: Active Protocol: Document 02/05/20 08:15 AMB (Rec: 02/05/20 10:23 AMB [id number]) Knee Strength Knee Manual Muscle Testing Right Flexion (S2) 3 Fair Extension (L3) 3- Fair- PT-OP-Q Treatments Start: 01/22/20 17:32 Freq: Status: Active Protocol: Document 02/21/20 08:15 AMB (Rec: 02/21/20 08:32 AMB [id number]) Cardio Equipment Bicycle (Upright) Duration (Minutes) 6 Resistance 10 Gym Equipment Shuttle Recovery Unilateral Squats Resistance 50 Shuttle Recovery Platform Stable Reps/Time 2x10 Bilateral Squats Resistance 100 Shuttle Recovery Platform Stable Reps/Time 2x12 Therapeutic Exercises Standing Exercises 1 Standing Exercise Name mini squats Reps/Minutes 10 Comments trying to avoid excessive WB on non surgical leg Manual Therapy Treatment Soft Tissue Mobilization 1 Body Location manual stretch and edema massage Comments started scar massage on upper scar, lower scar is still scabbed. Joint Mobilizations 1 Comments PAssive flexion and extension, patellar mobs PT-OP-T Assessment and Plan Start: 01/22/20 17:32 Freq: Status: Active Protocol: Document 02/21/20 08:15 AMB (Rec: 02/21/20 08:32 AMB [id number]) Physical Therapy Assessment Assessment Summary Assessment Pt is doing well, but we will need to progress quad strengthening,continue last few degrees to get full extension. Physical Therapy Plan Next Visit Focus/Plan Next Note Type Treatment Note Next Visit Plan Progress strengthening HEP
--- NOTE | 2020-02-26 12:53 | PT.OTN ---
Current Diagnoses Unilateral primary osteoarthritis, right knee (02/26/20) Pain in right knee (02/26/20) Stiffness of right knee, not elsewhere classified (02/26/20) Physical Therapy Treatment Note PT-OP-A Visit Information Start: 01/22/20 17:32 Freq: Status: Active Protocol: Document 02/26/20 08:09 AMB (Rec: 02/26/20 08:31 AMB [id number]) Out-Patient Physical Therapy Visit Information Visit Information Visit Type Treatment Note Visit Start Time 08:15 Visit Stop Time 09:00 Total Visit Minutes 45 Visit Number 8 PT-OP-B Current Condition Start: 01/22/20 17:32 Freq: Status: Active Protocol: Document 01/22/20 15:15 DCW (Rec: 01/22/20 17:49 DCW [id number]) Current Condition History of Current Condition Onset Date Multi-year history Current Complaints Right knee discomfort History of Current Condition Pt is a 69 year old male presenting for a pre-op evaluation prior to his right TKA scheduled on 01/29/20. Pt notes he typically walks every day, able to go any where from 2-5 miles, but about five months ago, something happened to my knee when he was out walking, which caused significant pain and limited his ambulation. Pt notes he would have gotten it replaced earlier, but covid ruined that plan. Pt is motivated to return to his normal levels of function. Future Testing and Treatments Planned R TKA 01/29/20 Treatment Goals Patient/Caregiver Goals Return to taking a 2+ mile walk daily PT-OP-C Subjective Start: 01/22/20 17:32 Freq: Status: Active Protocol: Document 02/26/20 08:09 AMB (Rec: 02/26/20 08:31 AMB [id number]) OP-PT Subjective Patient Comments Patient Comments Went for a 25 minute walk and that went fine. PT-OP-G Mobility & Gait Start: 01/22/20 17:32 Freq: Status: Active Protocol: Document 02/05/20 08:15 AMB (Rec: 02/05/20 10:23 AMB [id number]) OP Gait Assessment Comments Gait Comments Antalgic gait with FWW PT-OP-K Range of Motion Start: 01/22/20 17:32 Freq: Status: Active Protocol: Document 02/05/20 08:20 AMB (Rec: 02/05/20 08:28 AMB [id number]) Knee Goniometric Range of Motion Knee Right Flexion Active (degrees) 90 Flexion Passive (degrees) 100 Extension Active (degrees) 20 PT-OP-M Strength Start: 01/22/20 17:32 Freq: Status: Active Protocol: Document 02/05/20 08:15 AMB (Rec: 02/05/20 10:23 AMB [id number]) Knee Strength Knee Manual Muscle Testing Right Flexion (S2) 3 Fair Extension (L3) 3- Fair- PT-OP-Q Treatments Start: 01/22/20 17:32 Freq: Status: Active Protocol: Document 02/26/20 08:09 AMB (Rec: 02/26/20 08:31 AMB [id number]) Cardio Equipment Bicycle (Upright) Duration (Minutes) 7 Resistance 10 Seat Position 7 Gym Equipment Shuttle Recovery Unilateral Squats Resistance 75 Shuttle Recovery Platform Stable Reps/Time 2x10 Bilateral Squats Resistance 100 Shuttle Recovery Platform Stable Reps/Time 2x12 Therapeutic Exercises Supine Exercises 5 Supine Exercise Name quad stretch 4 Supine Exercise Name hamstring stretch Standing Exercises 1 Standing Exercise Name mini squats/ then mini lunges Reps/Minutes 10 Comments trying to avoid excessive WB on non surgical leg Therapeutic Activity Therapeutic Activity 1 Name floor transfer Comments kneeling on plinth and then on floor with pillow under knees with UE assist- independent Manual Therapy Treatment Soft Tissue Mobilization 1 Body Location manual stretch and edema massage Comments scar massage over whole incision Joint Mobilizations 1 Comments PAssive flexion and extension, patellar mobs PT-OP-T Assessment and Plan Start: 01/22/20 17:32 Freq: Status: Active Protocol: Document 02/26/20 08:09 AMB (Rec: 02/26/20 08:31 AMB [id number]) Physical Therapy Assessment Goals Three Impairment Pt unable to ambulate his usual two mile walk Residential Goal (LTG) Pt to report return of ability to ambulate two miles without increased pain using least restrictive assistive device LTG Duration 03/23/20 Two Impairment ROM Short Term Goal (STG) Pt to display a post-op right knee ROM of 15?-100? STG Duration MET Residential Goal (LTG) Pt to display a post-op right knee ROM of 0?-120? to allow for fully independent ADLs LTG Duration 03/23/20 One Impairment Pt does not have an appropriate home exercise program Short Term Goal (STG) Pt to be independent and compliant with an appropriate post-op HEP STG Duration MET Assessment Summary Assessment Pt is doing well, sleep is still a challenge, does feel stiffness intermittently. Physical Therapy Plan Next Visit Focus/Plan Next Note Type Treatment Note Next Visit Plan Progress strengthening HEP, look at scar care.
--- NOTE | 2020-02-28 10:09 | PT.OTN ---
Current Diagnoses Unilateral primary osteoarthritis, right knee (02/28/20) Pain in right knee (02/28/20) Stiffness of right knee, not elsewhere classified (02/28/20) Physical Therapy Treatment Note PT-OP-A Visit Information Start: 01/22/20 17:32 Freq: Status: Active Protocol: Document 02/28/20 08:56 AMB (Rec: 02/28/20 09:02 AMB [id number]) Out-Patient Physical Therapy Visit Information Visit Information Visit Type Progress Note Visit Start Time 08:15 Visit Stop Time 09:00 Total Visit Minutes 45 Visit Number 9 PT-OP-B Current Condition Start: 01/22/20 17:32 Freq: Status: Active Protocol: Document 01/22/20 15:15 DCW (Rec: 01/22/20 17:49 DCW [id number]) Current Condition History of Current Condition Onset Date Multi-year history Current Complaints Right knee discomfort History of Current Condition Pt is a 69 year old male presenting for a pre-op evaluation prior to his right TKA scheduled on 01/29/20. Pt notes he typically walks every day, able to go any where from 2-5 miles, but about five months ago, something happened to my knee when he was out walking, which caused significant pain and limited his ambulation. Pt notes he would have gotten it replaced earlier, but covid ruined that plan. Pt is motivated to return to his normal levels of function. Future Testing and Treatments Planned R TKA 01/29/20 Treatment Goals Patient/Caregiver Goals Return to taking a 2+ mile walk daily PT-OP-C Subjective Start: 01/22/20 17:32 Freq: Status: Active Protocol: Document 02/28/20 08:56 AMB (Rec: 02/28/20 09:02 AMB [id number]) OP-PT Subjective Patient Comments Patient Comments Got down on the ground at home and exercises went fine, got back up with help of coffee table, no concerns PT-OP-G Mobility & Gait Start: 01/22/20 17:32 Freq: Status: Active Protocol: Document 02/05/20 08:15 AMB (Rec: 02/05/20 10:23 AMB [id number]) OP Gait Assessment Comments Gait Comments Antalgic gait with FWW PT-OP-K Range of Motion Start: 11/16/20 17:32 Freq: Status: Active Protocol: Document 02/28/20 08:28 AMB (Rec: 02/28/20 08:54 AMB [id number]) Knee Goniometric Range of Motion Knee Right Flexion Active (degrees) 120 Flexion Passive (degrees) 120 Extension Active (degrees) 5 PT-OP-M Strength Start: 01/22/20 17:32 Freq: Status: Active Protocol: Document 02/05/20 08:15 AMB (Rec: 02/05/20 10:23 AMB [id number]) Knee Strength Knee Manual Muscle Testing Right Flexion (S2) 3 Fair Extension (L3) 3- Fair- PT-OP-Q Treatments Start: 01/22/20 17:32 Freq: Status: Active Protocol: Document 02/28/20 10:03 AMB (Rec: 02/28/20 10:08 AMB [id number]) Cardio Equipment Bicycle (Upright) Duration (Minutes) 10 Resistance 12 Seat Position 7 Therapeutic Exercises Standing Exercises 2 Standing Exercise Name stair step up Reps/Minutes 2x10 ea Comments a/p and lateral 6 Manual Therapy Treatment Soft Tissue Mobilization 1 Body Location manual stretch and edema massage Comments scar massage over whole incision Joint Mobilizations 1 Comments PAssive flexion and extension, patellar mobs PT-OP-T Assessment and Plan Start: 01/22/20 17:32 Freq: Status: Active Protocol: Document 02/28/20 08:56 AMB (Rec: 02/28/20 09:02 AMB [id number]) Physical Therapy Assessment Goals Three Impairment Pt unable to ambulate his usual two mile walk Health Coach Goal (LTG) Pt to report return of ability to ambulate two miles without increased pain using least restrictive assistive device LTG Duration 03/23/20 Two Impairment ROM Short Term Goal (STG) Pt to display a post-op right knee ROM of 15?-100? STG Duration MET Health Coach Goal (LTG) Pt to display a post-op right knee ROM of 0?-120? to allow for fully independent ADLs LTG Duration 03/23/20 One Impairment Pt does not have an appropriate home exercise program Short Term Goal (STG) Pt to be independent and compliant with an appropriate post-op HEP STG Duration MET Assessment Summary Assessment Donadlo's ROM is improving appropriately, he is still lacking 5 degrees from full extension, but considering that he started at missing 20, he is coming along well. His gait is improving well, he does need to continue to progress his quad strength, but that is going well. Physical Therapy Plan Next Visit Focus/Plan Next Note Type Treatment Note Next Visit Plan Progress strengthening
--- NOTE | 2020-02-28 11:54 | PT.OPPN ---
Current Diagnoses Unilateral primary osteoarthritis, right knee (02/28/20) Pain in right knee (02/28/20) Stiffness of right knee, not elsewhere classified (02/28/20) Physical Therapy Progress Note PT-OP-A Visit Information Start: 01/22/20 17:32 Freq: Status: Active Protocol: Document 02/28/20 08:56 AMB (Rec: 02/28/20 09:02 AMB [id number]) Out-Patient Physical Therapy Visit Information Visit Information Visit Type Progress Note Visit Start Time 08:15 Visit Stop Time 09:00 Total Visit Minutes 45 Visit Number 9 PT-OP-B Current Condition Start: 01/22/20 17:32 Freq: Status: Active Protocol: Document 01/22/20 15:15 DCW (Rec: 01/22/20 17:49 DCW [id number]) Current Condition History of Current Condition Onset Date Multi-year history Current Complaints Right knee discomfort History of Current Condition Pt is a 69 year old male presenting for a pre-op evaluation prior to his right TKA scheduled on 01/29/20. Pt notes he typically walks every day, able to go any where from 2-5 miles, but about five months ago, something happened to my knee when he was out walking, which caused significant pain and limited his ambulation. Pt notes he would have gotten it replaced earlier, but covid ruined that plan. Pt is motivated to return to his normal levels of function. Future Testing and Treatments Planned R TKA 01/29/20 Treatment Goals Patient/Caregiver Goals Return to taking a 2+ mile walk daily PT-OP-C Subjective Start: 01/22/20 17:32 Freq: Status: Active Protocol: Document 02/28/20 08:56 AMB (Rec: 02/28/20 09:02 AMB [id number]) OP-PT Subjective Patient Comments Patient Comments Got down on the ground at home and exercises went fine, got back up with help of coffee table, no concerns PT-OP-G Mobility & Gait Start: 01/22/20 17:32 Freq: Status: Active Protocol: Document 02/28/20 08:15 AMB (Rec: 02/28/20 11:53 AMB [email or web address]) OP Gait Assessment Comments Gait Comments Ambulates in the community without antalgia or AD PT-OP-K Range of Motion Start: 01/22/20 17:32 Freq: Status: Active Protocol: Document 02/28/20 08:28 AMB (Rec: 02/28/20 08:54 AMB [id number]) Knee Goniometric Range of Motion Knee Measured in Degrees Right Flexion Active (degrees) 120 Flexion Passive (degrees) 120 Extension Active (degrees) 5 PT-OP-M Strength Start: 01/22/20 17:32 Freq: Status: Active Protocol: Document 02/28/20 08:15 AMB (Rec: 02/28/20 11:53 AMB [email or web address]) Knee Strength Knee Manual Muscle Testing Right Flexion (S2) 4+ Good+ Extension (L3) 4 Good PT-OP-T Assessment and Plan Start: 01/22/20 17:32 Freq: Status: Active Protocol: Document 02/28/20 08:56 AMB (Rec: 02/28/20 09:02 AMB [id number]) Physical Therapy Assessment Goals Three Impairment Pt unable to ambulate his usual two mile walk Consumer Credit Counselor Goal (LTG) Pt to report return of ability to ambulate two miles without increased pain using least restrictive assistive device LTG Duration 03/23/20 Two Impairment ROM Short Term Goal (STG) Pt to display a post-op right knee ROM of 15?-100? STG Duration MET Consumer Credit Counselor Goal (LTG) Pt to display a post-op right knee ROM of 0?-120? to allow for fully independent ADLs LTG Duration 03/23/20 One Impairment Pt does not have an appropriate home exercise program Short Term Goal (STG) Pt to be independent and compliant with an appropriate post-op HEP STG Duration MET Assessment Summary Assessment Donaldo's ROM is improving appropriately, he is still lacking 5 degrees from full extension, but considering that he started at missing 20, he is coming along well. His gait is improving well, he does need to continue to progress his quad strength, but that is going well. Physical Therapy Plan Next Visit Focus/Plan Next Note Type Treatment Note Next Visit Plan Progress strengthening
--- NOTE | 2020-03-12 08:55 | PT.OTN ---
Current Diagnoses Unilateral primary osteoarthritis, right knee (03/12/20) Pain in right knee (03/12/20) Stiffness of right knee, not elsewhere classified (03/12/20) Physical Therapy Treatment Note PT-OP-A Visit Information Start: 01/22/20 17:32 Freq: Status: Active Protocol: Document 03/12/20 08:15 AMB (Rec: 03/12/20 08:54 AMB [id number]) Out-Patient Physical Therapy Visit Information Visit Information Visit Type Treatment Note Visit Note 03/17 Visit Start Time 08:15 Visit Stop Time 09:00 Total Visit Minutes 45 Visit Number 10 PT-OP-B Current Condition Start: 01/22/20 17:32 Freq: Status: Active Protocol: Document 01/22/20 15:15 DCW (Rec: 01/22/20 17:49 DCW [id number]) Current Condition History of Current Condition Onset Date Multi-year history Current Complaints Right knee discomfort History of Current Condition Pt is a 69 year old male presenting for a pre-op evaluation prior to his right TKA scheduled on 01/29/20. Pt notes he typically walks every day, able to go any where from 2-5 miles, but about five months ago, something happened to my knee when he was out walking, which caused significant pain and limited his ambulation. Pt notes he would have gotten it replaced earlier, but covid ruined that plan. Pt is motivated to return to his normal levels of function. Future Testing and Treatments Planned R TKA 01/29/20 Treatment Goals Patient/Caregiver Goals Return to taking a 2+ mile walk daily PT-OP-C Subjective Start: 01/22/20 17:32 Freq: Status: Active Protocol: Document 03/12/20 08:15 AMB (Rec: 03/12/20 08:54 AMB [id number]) OP-PT Subjective Patient Comments Patient Comments Donaldo has been icing his knee more to manage swelling and overall feels like it is moving better. PT-OP-G Mobility & Gait Start: 01/22/20 17:32 Freq: Status: Active Protocol: Document 02/28/20 08:15 AMB (Rec: 02/28/20 11:53 AMB [email or web address]) OP Gait Assessment Comments Gait Comments Ambulates in the community without antalgia or AD PT-OP-K Range of Motion Start: 01/22/20 17:32 Freq: Status: Active Protocol: Document 02/28/20 08:28 AMB (Rec: 02/28/20 08:54 AMB [id number]) Knee Goniometric Range of Motion Knee Right Flexion Active (degrees) 120 Flexion Passive (degrees) 120 Extension Active (degrees) 5 PT-OP-M Strength Start: 01/22/20 17:32 Freq: Status: Active Protocol: Document 02/28/20 08:15 AMB (Rec: 02/28/20 11:53 AMB [email or web address]) Knee Strength Knee Manual Muscle Testing Right Flexion (S2) 4+ Good+ Extension (L3) 4 Good PT-OP-Q Treatments Start: 01/22/20 17:32 Freq: Status: Active Protocol: Document 03/12/20 08:15 AMB (Rec: 03/12/20 08:54 AMB [id number]) Cardio Equipment Bicycle (Upright) Duration (Minutes) 10 Resistance 12 Seat Position 7 Gym Equipment Shuttle Recovery Unilateral Squats Resistance 75 Shuttle Recovery Platform Stable Reps/Time 2x10 Therapeutic Exercises Standing Exercises 4 Standing Exercise Name hamstring stretch Comments on stair 3 Standing Exercise Name calf stretch Comments on stair 2 Standing Exercise Name stair step up Reps/Minutes 2x10 ea Comments a/p 6 Manual Therapy Treatment Soft Tissue Mobilization 1 Body Location manual stretch and edema massage Comments scar massage over whole incision Joint Mobilizations 1 Comments PAssive flexion and extension, patellar mobs PT-OP-T Assessment and Plan Start: 01/22/20 17:32 Freq: Status: Active Protocol: Document 03/12/20 08:15 AMB (Rec: 03/12/20 08:54 AMB [id number]) Physical Therapy Assessment Assessment Summary Assessment Donaldo continues to progress appropriately, quad strength is coming along, but still not equal to the other side. Physical Therapy Plan Next Visit Focus/Plan Next Note Type Treatment Note Next Visit Plan Progress strengthening
--- NOTE | 2020-03-19 09:16 | PT.OTN ---
Current Diagnoses Unilateral primary osteoarthritis, right knee (03/19/20) Pain in right knee (03/19/20) Stiffness of right knee, not elsewhere classified (03/19/20) Physical Therapy Treatment Note PT-OP-A Visit Information Start: 01/22/20 17:32 Freq: Status: Active Protocol: Document 03/19/20 08:18 SP (Rec: 03/19/20 09:32 SP [id number]) Out-Patient Physical Therapy Visit Information Visit Information Visit Type Treatment Note Visit Start Time 08:18 Visit Stop Time 09:16 Total Visit Minutes 58 Visit Number 11 Number of KNOWLEDGE ANALYST Visits 1 PT-OP-B Current Condition Start: 01/22/20 17:32 Freq: Status: Active Protocol: Document 01/22/20 15:15 DCW (Rec: 01/22/20 17:49 DCW [id number]) Current Condition History of Current Condition Onset Date Multi-year history Current Complaints Right knee discomfort History of Current Condition Pt is a 69 year old male presenting for a pre-op evaluation prior to his right TKA scheduled on 01/29/20. Pt notes he typically walks every day, able to go any where from 2-5 miles, but about five months ago, something happened to my knee when he was out walking, which caused significant pain and limited his ambulation. Pt notes he would have gotten it replaced earlier, but covid ruined that plan. Pt is motivated to return to his normal levels of function. Future Testing and Treatments Planned R TKA 01/29/20 Treatment Goals Patient/Caregiver Goals Return to taking a 2+ mile walk daily PT-OP-C Subjective Start: 01/22/20 17:32 Freq: Status: Active Protocol: Document 03/19/20 08:18 SP (Rec: 03/19/20 09:32 SP [id number]) OP-PT Subjective Patient Comments Patient Comments Pt reported walking outside more at least 1 - 3 miles depending on how knee feels. Might start using outdoor bike soon. Compliant with HEP, 6 step downs little irritating. Patient Reported Progress Improving PT-OP-G Mobility & Gait Start: 01/22/20 17:32 Freq: Status: Active Protocol: Document 02/28/20 08:15 AMB (Rec: 02/28/20 11:53 AMB [email or web address]) OP Gait Assessment Comments Gait Comments Ambulates in the community without antalgia or AD PT-OP-K Range of Motion Start: 01/22/20 17:32 Freq: Status: Active Protocol: Document 02/28/20 08:28 AMB (Rec: 02/28/20 08:54 AMB [id number]) Knee Goniometric Range of Motion Knee Right Flexion Active (degrees) 120 Flexion Passive (degrees) 120 Extension Active (degrees) 5 PT-OP-M Strength Start: 01/22/20 17:32 Freq: Status: Active Protocol: Document 02/28/20 08:15 AMB (Rec: 02/28/20 11:53 AMB [email or web address]) Knee Strength Knee Manual Muscle Testing Right Flexion (S2) 4+ Good+ Extension (L3) 4 Good PT-OP-Q Treatments Start: 01/22/20 17:32 Freq: Status: Active Protocol: Document 03/19/20 08:18 SP (Rec: 03/19/20 09:32 SP [id number]) Cardio Equipment Recumbent Stepper (Sci-Fit) Duration (Minutes) 6 Resistance 4 Seat Position 14 Therapeutic Exercises Prone Exercises Prone hang/ knee flexion Side right Resistance AROM flexion/ext Reps/Minutes 2x5 and 2 sec hold quad set Comments cued hip toward table, only allowable ROM Sitting Exercises quad, HS, gastroc rolling stick Side right Reps/Minutes 1 min total Comments cued easy fluid reabsorption Standing Exercises TKE Side right Resistance TB #3 Reps/Minutes x10 Comments cued slow pacing flex, ext quad isometric w/ knee with and behind toes band walk Standing Exercise Name f/b/s Resistance TB #2 Reps/Minutes 10 ft x3 laps Comments cued upright posture, no lateral lean, glut fac with slow ecc trail LE eccentric stelp down Standing Exercise Name lateral Side right Reps/Minutes 3x5 Comments cued knee with and behind toes , glut facilitation Manual Therapy Treatment Soft Tissue Mobilization STMs HS, gastroc Body Location R Mobilization Type Rolling,Strumming Intensity/Depth Moderate Body Position Prone 1 Comments assessment little scar massage over whole incision Taping edema- basket weave Body Location R Treatment Focus decrease edema Type of Tape Kinesio Tape Skin Inspection normal, intact Comments softball diameter fluid superior R patella med/ sup/ lat, used basketweave K taping for fluid reabsorption PT-OP-T Assessment and Plan Start: 01/22/20 17:32 Freq: Status: Active Protocol: Document 03/19/20 08:18 SP (Rec: 03/19/20 09:32 SP [id number]) Physical Therapy Assessment Goals Three Impairment Pt unable to ambulate his usual two mile walk Jail Goal (LTG) Pt to report return of ability to ambulate two miles without increased pain using least restrictive assistive device LTG Duration 03/23/20 Two Impairment ROM Short Term Goal (STG) Pt to display a post-op right knee ROM of 15?-100? STG Duration MET Jail Goal (LTG) Pt to display a post-op right knee ROM of 0?-120? to allow for fully independent ADLs LTG Duration 03/23/20 One Impairment Pt does not have an appropriate home exercise program Short Term Goal (STG) Pt to be independent and compliant with an appropriate post-op HEP STG Duration MET Assessment Summary Assessment Pt tolerated tx well, focused on decrease edema which pt stated is 1/2 size can be. Added K taping to assist edema reduction, review lateral step down and initated band walk, TKE today with cuing required for knee alignement and glut facilitation with improvement in form and very minimal knee irritation. Physical Therapy Plan Frequency and Duration Frequency of Treatment 2x/Week Duration of Treatment 8 weeks Plan of Care Start Date 02/05/20 Plan of Care End Date 04/01/20 Therapeutic Interventions Therapeutic Interventions Balance Training,Gait Training ,Home Exercise Program,Joint Mobilizations,Manual Therapy, Neuromuscular Re-education, Patient/Caregiver Education, Self-Care/Home Management,Soft Tissue Mobilization,Taping, Therapeutic Activities, Therapeutic Exercises Modalities Cold Pack/Ice Massage,Electric Stimulation,Hot Packs, Ultrasound Next Visit Focus/Plan Next Note Type Treatment Note Next Visit Plan Assess added band walk, step down self corrections, TKE, rolling stick. Next tx add Jovani stretch and review HEP. Continue per PT POC:Progress strengthening
--- NOTE | 2020-03-26 10:14 | PT.OTN ---
Current Diagnoses Unilateral primary osteoarthritis, right knee (03/26/20) Pain in right knee (03/26/20) Stiffness of right knee, not elsewhere classified (03/26/20) Physical Therapy Treatment Note PT-OP-A Visit Information Start: 01/22/20 17:32 Freq: Status: Active Protocol: Document 03/26/20 08:15 AMB (Rec: 03/26/20 09:02 AMB [id number]) Out-Patient Physical Therapy Visit Information Visit Information Visit Type Treatment Note Visit Note 05/15 Visit Start Time 08:15 Visit Stop Time 09:00 Total Visit Minutes 45 Visit Number 12 PT-OP-B Current Condition Start: 01/22/20 17:32 Freq: Status: Active Protocol: Document 01/22/20 15:15 DCW (Rec: 01/22/20 17:49 DCW [id number]) Current Condition History of Current Condition Onset Date Multi-year history Current Complaints Right knee discomfort History of Current Condition Pt is a 69 year old male presenting for a pre-op evaluation prior to his right TKA scheduled on 01/29/20. Pt notes he typically walks every day, able to go any where from 2-5 miles, but about five months ago, something happened to my knee when he was out walking, which caused significant pain and limited his ambulation. Pt notes he would have gotten it replaced earlier, but covid ruined that plan. Pt is motivated to return to his normal levels of function. Future Testing and Treatments Planned R TKA 01/29/20 Treatment Goals Patient/Caregiver Goals Return to taking a 2+ mile walk daily PT-OP-C Subjective Start: 01/22/20 17:32 Freq: Status: Active Protocol: Document 03/26/20 08:15 AMB (Rec: 03/26/20 09:02 AMB [id number]) OP-PT Subjective Patient Comments Patient Comments Pt has not tried to walk on hills because going downhill is challenging, but other than that feels good, feels better than before surgery. PT-OP-G Mobility & Gait Start: 01/22/20 17:32 Freq: Status: Active Protocol: Document 02/28/20 08:15 AMB (Rec: 02/28/20 11:53 AMB [email or web address]) OP Gait Assessment Comments Gait Comments Ambulates in the community without antalgia or AD PT-OP-K Range of Motion Start: 01/22/20 17:32 Freq: Status: Active Protocol: Document 02/28/20 08:28 AMB (Rec: 02/28/20 08:54 AMB [id number]) Knee Goniometric Range of Motion Knee Right Flexion Active (degrees) 120 Flexion Passive (degrees) 120 Extension Active (degrees) 5 PT-OP-M Strength Start: 01/22/20 17:32 Freq: Status: Active Protocol: Document 02/28/20 08:15 AMB (Rec: 02/28/20 11:53 AMB [email or web address]) Knee Strength Knee Manual Muscle Testing Right Flexion (S2) 4+ Good+ Extension (L3) 4 Good PT-OP-Q Treatments Start: 01/22/20 17:32 Freq: Status: Active Protocol: Document 03/26/20 08:15 AMB (Rec: 03/26/20 10:13 AMB [email or web address]) Cardio Equipment Bicycle (Upright) Duration (Minutes) 7 Resistance 13 Seat Position 8 Treadmill Duration (Minutes) 3 Speed 2 Incline 10 Therapeutic Exercises Prone Exercises Prone hang/ knee flexion Side right Resistance AROM flexion/ext Reps/Minutes 2x5 and 2 sec hold quad set Comments cued hip toward table, only allowable ROM Standing Exercises eccentric stelp down Standing Exercise Name lateral Side right Reps/Minutes 3x5 Comments cued knee with and behind toes , glut facilitation 2 Standing Exercise Name stair step up Reps/Minutes 2x10 ea Comments a/p 6 PT-OP-T Assessment and Plan Start: 01/22/20 17:32 Freq: Status: Active Protocol: Document 03/26/20 08:15 AMB (Rec: 03/26/20 09:02 AMB [id number]) Physical Therapy Assessment Assessment Summary Assessment Pt continues to need more eccentric quad stabilization, but other than that is doing well. Physical Therapy Plan Next Visit Focus/Plan Next Visit Plan Consider d/c in next few weeks as pt is getting close to goals, but does still need more eccentric quad control
--- NOTE | 2020-04-02 14:59 | PT.OTN ---
Current Diagnoses Unilateral primary osteoarthritis, right knee (04/02/20) Pain in right knee (04/02/20) Stiffness of right knee, not elsewhere classified (04/02/20) Physical Therapy Treatment Note PT-OP-A Visit Information Start: 01/22/20 17:32 Freq: Status: Active Protocol: Document 04/02/20 08:15 AMB (Rec: 04/02/20 08:46 AMB [id number]) Out-Patient Physical Therapy Visit Information Visit Information Visit Type Discharge Summary Visit Start Time 08:15 Visit Stop Time 09:00 Total Visit Minutes 45 Visit Number 13 PT-OP-B Current Condition Start: 01/22/20 17:32 Freq: Status: Active Protocol: Document 01/22/20 15:15 DCW (Rec: 01/22/20 17:49 DCW [id number]) Current Condition History of Current Condition Onset Date Multi-year history Current Complaints Right knee discomfort History of Current Condition Pt is a 69 year old male presenting for a pre-op evaluation prior to his right TKA scheduled on 01/29/20. Pt notes he typically walks every day, able to go any where from 2-5 miles, but about five months ago, something happened to my knee when he was out walking, which caused significant pain and limited his ambulation. Pt notes he would have gotten it replaced earlier, but covid ruined that plan. Pt is motivated to return to his normal levels of function. Future Testing and Treatments Planned R TKA 01/29/20 Treatment Goals Patient/Caregiver Goals Return to taking a 2+ mile walk daily PT-OP-C Subjective Start: 01/22/20 17:32 Freq: Status: Active Protocol: Document 04/02/20 08:15 AMB (Rec: 04/02/20 08:46 AMB [id number]) OP-PT Subjective Patient Comments Patient Comments Pt is walking about 1 mile in 17 minutes, some hills, no pain. Patient Reported Progress Improving PT-OP-G Mobility & Gait Start: 01/22/20 17:32 Freq: Status: Active Protocol: Document 04/02/20 08:15 AMB (Rec: 04/06/20 14:52 AMB [email or web address]) OP Gait Assessment Comments Gait Comments Ambulates 1 mile without antalgia or assistive device over hills, curbs, uneven terrain PT-OP-K Range of Motion Start: 01/22/20 17:32 Freq: Status: Active Protocol: Document 04/02/20 08:15 AMB (Rec: 04/06/20 14:52 AMB [email or web address]) Knee Goniometric Range of Motion Knee Right Flexion Active (degrees) 120 Flexion Passive (degrees) 122 Extension Active (degrees) 2 PT-OP-M Strength Start: 01/22/20 17:32 Freq: Status: Active Protocol: Document 04/02/20 08:15 AMB (Rec: 04/06/20 14:52 AMB [email or web address]) Knee Strength Knee Manual Muscle Testing Right Flexion (S2) 5 Normal Extension (L3) 4+ Good+ PT-OP-Q Treatments Start: 01/22/20 17:32 Freq: Status: Active Protocol: Document 04/02/20 08:15 AMB (Rec: 04/06/20 14:59 AMB [email or web address]) Cardio Equipment Bicycle (Upright) Duration (Minutes) 7 Resistance 13 Seat Position 8 Therapeutic Exercises Standing Exercises TKE Side right Resistance TB #3 Reps/Minutes x10 Comments cued slow pacing flex, ext quad isometric w/ knee with and behind toes band walk Standing Exercise Name f/b/s Resistance TB #2 Reps/Minutes 10 ft x3 laps Comments cued upright posture, no lateral lean, glut fac with slow ecc trail LE eccentric stelp down Standing Exercise Name lateral Side right Reps/Minutes 3x5 Comments cued knee with and behind toes , glut facilitation Manual Therapy Treatment Joint Mobilizations 1 Comments PAssive flexion and extension, patellar mobs PT-OP-T Assessment and Plan Start: 01/22/20 17:32 Freq: Status: Active Protocol: Document 04/02/20 08:15 AMB (Rec: 04/02/20 08:46 AMB [id number]) Physical Therapy Assessment Goals Three Impairment Pt unable to ambulate his usual two mile walk Senior Living Goal (LTG) Pt to report return of ability to ambulate two miles without increased pain using least restrictive assistive device LTG Duration PARTIALLY MET- 1 mile Two Impairment ROM Short Term Goal (STG) Pt to display a post-op right knee ROM of 15?-100? STG Duration MET Senior Living Goal (LTG) Pt to display a post-op right knee ROM of 0?-120? to allow for fully independent ADLs LTG Duration MET One Impairment Pt does not have an appropriate home exercise program Short Term Goal (STG) Pt to be independent and compliant with an appropriate post-op HEP STG Duration MET Assessment Summary Assessment Donaldo has met the majority of his goals at this time. He should continue to progress his quad strength, and walking tolerance, but overall his ROM is good and he should be able to progress independently at this time. Physical Therapy Plan Frequency and Duration Frequency of Treatment 1x/Week Duration of Treatment 1 week Plan of Care Start Date 04/01/20 Plan of Care End Date 04/08/20 Therapeutic Interventions Therapeutic Interventions Gait Training,Joint Mobilizations,Manual Therapy, Neuromuscular Re-education, Self-Care/Home Management, Therapeutic Activities, Therapeutic Exercises Modalities Cold Pack/Ice Massage Discharge Physical Therapy Discharge Reasons Goals Met
--- NOTE | 2020-04-02 15:00 | PT.OPPOC ---
Physical, Occupational & Speech Therapy At [facility] Current Diagnoses Unilateral primary osteoarthritis, right knee (04/02/20) Pain in right knee (04/02/20) Stiffness of right knee, not elsewhere classified (04/02/20) Visit Care Team Role Provider Type Vidal Carpio MD Primary Care Provider Physician Specialty: Internal Medicine Address: [address] [place] [address], [facility] [address], [address] Email: [email or web address] Blake Mckoy MD Attending Provider Physician Referring Provider Specialty: Orthopedic Surgery Address: [address] [place] [address], [id number] Email: [email or web address] Plan Of Care PT-OP-T Assessment and Plan Start: 01/22/20 17:32 Freq: Status: Active Protocol: Document 04/02/20 08:15 AMB (Rec: 04/02/20 08:46 AMB [id number]) Physical Therapy Assessment Goals Three Impairment Pt unable to ambulate his usual two mile walk Fci Goal (LTG) Pt to report return of ability to ambulate two miles without increased pain using least restrictive assistive device LTG Duration PARTIALLY MET- 1 mile Two Impairment ROM Short Term Goal (STG) Pt to display a post-op right knee ROM of 15?-100? STG Duration MET Fci Goal (LTG) Pt to display a post-op right knee ROM of 0?-120? to allow for fully independent ADLs LTG Duration MET One Impairment Pt does not have an appropriate home exercise program Short Term Goal (STG) Pt to be independent and compliant with an appropriate post-op HEP STG Duration MET Assessment Summary Assessment Donaldo has met the majority of his goals at this time. He should continue to progress his quad strength, and walking tolerance, but overall his ROM is good and he should be able to progress independently at this time. Physical Therapy Plan Frequency and Duration Frequency of Treatment 1x/Week Duration of Treatment 1 week Plan of Care Start Date 04/01/20 Plan of Care End Date 04/08/20 Therapeutic Interventions Therapeutic Interventions Gait Training,Joint Mobilizations,Manual Therapy, Neuromuscular Re-education, Self-Care/Home Management, Therapeutic Activities, Therapeutic Exercises Modalities Cold Pack/Ice Massage Discharge Physical Therapy Discharge Reasons Goals Met Plan of Care Dates Plan of Care Start Date 04/01/20 Plan of Care End Date 04/08/20 Electronically Signed by: Loraine Espana, PT 04/06/20 1500 Please Sign and Return: I have reviewed this Plan of Care and certify that the skilled therapy services above are required to meet the patient?s needs. Physician Signature Date Printed Name and Credentials Clinical Instructor Signature Printed Name and Credentials
== END 2020-04-12 13:45 ==
LOC: PHYS 08:15
PROVIDERS: PCP Internal Medicine; Referring Provider Orthopaedic Surgery; Visit Provider Orthopaedic Surgery
DX: M17.11 Unilateral primary osteoarthritis, right knee (principal); M25.561 Pain in right knee; M25.661 Stiffness of right knee, not elsewhere classified
CPT/HCPCS: 97110; 97116; 97140; 97161; 97164

== ENCOUNTER → 2020-04-26 10:18 | Outpatient (CLI) | payer MEDICARE, OTHER, SELFPAY ==
[2020-04-10 08:35] VITALS: BMI 35.2
[2020-04-26] MEDS: COVID-19 VACC #2, MRNA(MOD) 100 MCG/0.5 ML VIAL IM (10:23)
== END ==
PROVIDERS: PCP Internal Medicine; Visit Provider Internal Medicine
DX: Z23 Encounter for immunization (principal)
CPT/HCPCS: 0012A; 91301

== ENCOUNTER → 2020-06-10 08:07 | Outpatient (CLI) | payer MEDICARE, OTHER, SELFPAY ==
[2020-04-10 08:35] VITALS: BMI 35.2
[2020-06-10 10:40] LABS: Prostate Specific Antigen 4.03 ng/mL (0.10-4.00)
== END ==
PROVIDERS: PCP Internal Medicine; Referring Provider Specialist; Visit Provider Specialist
DX: N40.1 Benign prostatic hyperplasia with lower urinary tract symptoms (principal); N13.8 Other obstructive and reflux uropathy
CPT/HCPCS: 36415; 84153

== ENCOUNTER → 2020-06-12 06:52 | Outpatient (CLI) | payer MEDICARE, OTHER, SELFPAY ==
[2020-04-10 08:35] VITALS: BMI 35.2
[2020-06-12 09:01] LABS: Alanine Aminotransferase 19 IU/L (<50); Albumin Globulin Ratio 1.3 (1.0-2.8); Alkaline Phosphatase 61 U/L (38-126); Aspartate Aminotransferase 26 IU/L (17-59); BUN Creatinine Ratio 23.8 (6-22); Bilirubin Total 0.4 mg/dL (0.2-1.3); Blood Urea Nitrogen 20 mg/dL (9-20); Calcium 8.9 mg/dL (8.4-10.2); Carbon Dioxide 29 mmol/L (22-32); Chloride 104 mmol/L (98-107); Cholesterol 159 mg/dL (140-199); Estimated Glomerular Filt Rate > 60.0 mL/min (>60); Glucose 91 mg/dL (80-110); HDL Cholesterol 41 mg/dL (40-60); HEMOLYSIS < 15 (0-50); LDL Cholesterol Calculated 87 mg/dL (<100); Potassium 4.1 mmol/L (3.4-5.1); Sodium 139 mmol/L (137-145); Triglycerides 155 mg/dL (35-150)
== END ==
PROVIDERS: PCP Internal Medicine; Referring Provider Internal Medicine; Visit Provider Internal Medicine
DX: I10 Essential (primary) hypertension (principal); E78.2 Mixed hyperlipidemia
CPT/HCPCS: 36415; 80053; 80061

== ENCOUNTER → 2020-09-26 09:03 | Outpatient (CLI) | payer MEDICARE, OTHER, SELFPAY ==
[2020-06-19 08:12] VITALS: BMI 35.2
[2020-09-26 10:51] LABS: Prostate Specific Antigen 4.05 ng/mL (0.10-4.00)
== END ==
PROVIDERS: PCP Internal Medicine; Referring Provider Specialist; Visit Provider Specialist
DX: R39.9 Unspecified symptoms and signs involving the genitourinary system (principal); N40.1 Benign prostatic hyperplasia with lower urinary tract symptoms; R97.20 Elevated prostate specific antigen [PSA]
CPT/HCPCS: 36415; 84153

== ENCOUNTER → 2020-11-05 06:54 | Outpatient (CLI) | payer MEDICARE, OTHER, SELFPAY ==
[2020-10-16 08:03] VITALS: BMI 35.2
[2020-11-05 10:02] LABS: Alanine Aminotransferase 20 IU/L (<50); Albumin 4.3 g/dL (3.5-5.0); Albumin Globulin Ratio 1.4 (1.0-2.8); Alkaline Phosphatase 57 U/L (38-126); Aspartate Aminotransferase 25 IU/L (17-59); BUN Creatinine Ratio 13.8 (6-22); Bilirubin Total 0.6 mg/dL (0.2-1.3); Blood Urea Nitrogen 12 mg/dL (9-20); Calcium 9.2 mg/dL (8.4-10.2); Carbon Dioxide 29 mmol/L (22-32); Chloride 105 mmol/L (98-107); Cholesterol 126 mg/dL (140-199); Estimated Glomerular Filt Rate > 60.0 mL/min (>60); Globulin 3.1 g/dL (1.7-4.1); Glucose 86 mg/dL (80-110); HDL Cholesterol 38 mg/dL (40-60); HEMOLYSIS < 15 (0-50); LDL Cholesterol Calculated 62 mg/dL (<100); Potassium 4.4 mmol/L (3.4-5.1); Sodium 141 mmol/L (137-145); Total Protein 7.4 g/dL (6.3-8.2); Triglycerides 131 mg/dL (35-150)
== END ==
PROVIDERS: PCP Internal Medicine; Referring Provider Internal Medicine; Visit Provider Internal Medicine
DX: E78.2 Mixed hyperlipidemia (principal); I10 Essential (primary) hypertension
CPT/HCPCS: 36415; 80053; 80061

== ENCOUNTER → 2021-03-25 06:51 | Outpatient (CLI) | payer MEDICARE, OTHER, SELFPAY ==
[2020-10-16 08:03] VITALS: BMI 35.2
[2021-03-25 09:42] LABS: Alanine Aminotransferase 20 IU/L (<50); Albumin 4.1 g/dL (3.5-5.0); Albumin Globulin Ratio 1.4 (1.0-2.8); Alkaline Phosphatase 64 U/L (38-126); Aspartate Aminotransferase 21 IU/L (17-59); BUN Creatinine Ratio 17.8 (6-22); Bilirubin Total 0.5 mg/dL (0.2-1.3); Blood Urea Nitrogen 16 mg/dL (9-20); Calcium 9.3 mg/dL (8.4-10.2); Carbon Dioxide 28 mmol/L (22-32); Chloride 105 mmol/L (98-107); Cholesterol 154 mg/dL (140-199); Estimated Glomerular Filt Rate > 60.0 mL/min (>60); Globulin 2.9 g/dL (1.7-4.1); Glucose 89 mg/dL (80-110); HDL Cholesterol 44 mg/dL (40-60); HEMOLYSIS < 15 (0-50); LDL Cholesterol Calculated 83 mg/dL (<100); Potassium 4.4 mmol/L (3.4-5.1); Sodium 140 mmol/L (137-145); Triglycerides 137 mg/dL (35-150)
[2021-03-25 10:08] LABS: Prostate Specific Antigen Scrn 5.31 ng/mL (0.1-4.0)
== END ==
PROVIDERS: PCP Internal Medicine; Referring Provider Specialist; Visit Provider Specialist
DX: R97.20 Elevated prostate specific antigen [PSA] (principal); I10 Essential (primary) hypertension; E78.2 Mixed hyperlipidemia
CPT/HCPCS: 36415; 80053; 80061; 84153; G0103

== ENCOUNTER → 2021-05-05 07:13 | Outpatient (CLI) | payer MEDICARE, OTHER, SELFPAY ==
[2020-10-16 08:03] VITALS: BMI 35.2
[2021-05-07 08:09] LABS: Fecal Immunochemical Test Negative (Negative)
== END ==
PROVIDERS: PCP Internal Medicine; Referring Provider Internal Medicine; Visit Provider Internal Medicine
DX: Z12.11 Encounter for screening for malignant neoplasm of colon (principal)
CPT/HCPCS: 82274

== ENCOUNTER → 2021-05-27 07:06 | Outpatient (CLI) | payer MEDICARE, OTHER, SELFPAY ==
[2020-10-16 08:03] VITALS: BMI 35.2
== END ==
PROVIDERS: PCP Internal Medicine; Referring Provider Specialist; Visit Provider Specialist
DX: R97.20 Elevated prostate specific antigen [PSA] (principal)
CPT/HCPCS: 36415; 84153

== ENCOUNTER → 2021-07-11 06:55 | Outpatient (CLI) | payer MEDICARE, OTHER, SELFPAY ==
[2020-10-16 08:03] VITALS: BMI 35.2
[2021-07-11 08:11] LABS: Add Manual Diff / Slide Review NO; Basophils Absolute Auto 0 /uL (0-100); Basophils Percent Auto 0.5 % (0-2); Eosinophils Absolute Auto 100 /uL (0-450); Eosinophils Percent Auto 1.5 % (2-4); Hematocrit 41.9 % (41-53); Hemoglobin 14.6 g/dL (13.5-17.5); Lymphocytes Absolute Auto 1200 /uL (1100-4500); Lymphocytes Percent Auto 19.5 % (25-40); Mean Corpuscular HGB Conc 34.9 % (30-36); Mean Corpuscular Hemoglobin 30.7 PG (26-34); Monocytes Absolute Auto 400 /uL (0-900); Neutrophils Absolute Auto 4500 /uL (1500-7000); Neutrophils Percent Auto 71.5 % (50-75); Platelet Count 275 X10^3/uL (150-400); Red Blood Cell Count 4.76 X10^6/uL (4.5-5.9); Red Cell Distribution Width 13.2 % (11.6-14.8); White Blood Cell Count 6.3 X10^3/uL (4.5-11.0)
[2021-07-11 08:27] LABS: Alanine Aminotransferase 18 IU/L (<50); Albumin 4.1 g/dL (3.5-5.0); Albumin Globulin Ratio 1.4 (1.0-2.8); Alkaline Phosphatase 61 U/L (38-126); Aspartate Aminotransferase 22 IU/L (17-59); BUN Creatinine Ratio 24.1 (6-22); Bilirubin Total 0.6 mg/dL (0.2-1.3); Blood Urea Nitrogen 21 mg/dL (9-20); Calcium 8.8 mg/dL (8.4-10.2); Carbon Dioxide 27 mmol/L (22-32); Chloride 105 mmol/L (98-107); Cholesterol 151 mg/dL (140-199); Estimated Glomerular Filt Rate > 60 mL/min (>60); Glucose 95 mg/dL (80-110); HDL Cholesterol 42 mg/dL (40-60); HEMOLYSIS < 15 (0-50); LDL Cholesterol Calculated 84 mg/dL (<100); Potassium 4.4 mmol/L (3.4-5.1); Sodium 142 mmol/L (137-145); Total Protein 7.1 g/dL (6.3-8.2); Triglycerides 123 mg/dL (35-150)
[2021-07-11 09:31] LABS: Prostate Specific Antigen 5.09 ng/mL (0.10-4.00)
== END ==
PROVIDERS: PCP Internal Medicine; Referring Provider Specialist; Visit Provider Specialist
DX: E78.2 Mixed hyperlipidemia (principal); I10 Essential (primary) hypertension; R97.20 Elevated prostate specific antigen [PSA]; Z79.899 Other long term (current) drug therapy; Z86.711 Personal history of pulmonary embolism
CPT/HCPCS: 36415; 80053; 80061; 84153; 85025

== ENCOUNTER → 2021-12-04 06:49 | Outpatient (CLI) | payer MEDICARE, OTHER, SELFPAY ==
[2020-10-16 08:03] VITALS: BMI 35.2
[2021-12-04 09:07] LABS: Add Manual Diff / Slide Review NO; Basophils Absolute Auto 0 /uL (0-100); Basophils Percent Auto 0.5 % (0-2); Eosinophils Absolute Auto 100 /uL (0-450); Eosinophils Percent Auto 2.1 % (2-4); Hematocrit 42.2 % (41-53); Hemoglobin 14.5 g/dL (13.5-17.5); Lymphocytes Absolute Auto 1300 /uL (1100-4500); Lymphocytes Percent Auto 20.6 % (25-40); Mean Corpuscular HGB Conc 34.4 % (30-36); Mean Corpuscular Hemoglobin 30.4 PG (26-34); Mean Corpuscular Volume 88.2 fL (80-100); Monocytes Absolute Auto 400 /uL (0-900); Monocytes Percent Auto 6.9 % (3-14); Neutrophils Absolute Auto 4300 /uL (1500-7000); Neutrophils Percent Auto 69.9 % (50-75); Platelet Count 269 X10^3/uL (150-400); Red Blood Cell Count 4.79 X10^6/uL (4.5-5.9); Red Cell Distribution Width 13.2 % (11.6-14.8); White Blood Cell Count 6.1 X10^3/uL (4.5-11.0)
[2021-12-04 10:19] LABS: Alanine Aminotransferase 19 IU/L (<50); Albumin Globulin Ratio 1.3 (1.0-2.8); Alkaline Phosphatase 64 U/L (38-126); Aspartate Aminotransferase 22 IU/L (17-59); BUN Creatinine Ratio 17.4 (6-22); Bilirubin Total 0.5 mg/dL (0.2-1.3); Blood Urea Nitrogen 15 mg/dL (9-20); Calcium 8.9 mg/dL (8.4-10.2); Carbon Dioxide 28 mmol/L (22-32); Chloride 103 mmol/L (98-107); Cholesterol 154 mg/dL (140-199); Estimated Glomerular Filt Rate > 60 mL/min (>60); Glucose 90 mg/dL (80-110); HDL Cholesterol 41 mg/dL (40-60); HEMOLYSIS < 15 (0-50); LDL Cholesterol Calculated 83 mg/dL (<100); Potassium 4.3 mmol/L (3.4-5.1); Sodium 140 mmol/L (137-145); Triglycerides 148 mg/dL (35-150)
[2021-12-04 10:47] LABS: Prostate Specific Antigen 4.58 ng/mL (0.10-4.00)
== END ==
PROVIDERS: PCP Internal Medicine; Referring Provider Specialist; Visit Provider Specialist
DX: N40.1 Benign prostatic hyperplasia with lower urinary tract symptoms (principal); E78.2 Mixed hyperlipidemia; C61 Malignant neoplasm of prostate; N13.8 Other obstructive and reflux uropathy; I10 Essential (primary) hypertension; Z86.711 Personal history of pulmonary embolism
CPT/HCPCS: 36415; 80053; 80061; 84153; 85025

== ENCOUNTER → 2021-12-09 06:59 | Outpatient (CLI) | payer MEDICARE, OTHER, SELFPAY ==
[2020-10-16 08:03] VITALS: BMI 35.2
--- NOTE | 2021-12-09 07:00 | DI.MRI.S_ITS ---
PROCEDURE: MR PELVIS WO/W CON INDICATIONS: Prostate cancer. Rising PSA. TECHNIQUE: Coronal HASTE, axial T1 FSE with fat saturation, 3-plane nonbreath-hold T2 FSE. After the administration of contrast, dynamic axial, delayed axial and coronal VIBE or 2-D FLASH with fat saturation through the pelvis. diffusion weighted imaging and ADC performed. COMPARISON: None. FINDINGS: Image quality: Diffusion weighted and dynamic contrast enhanced images are diagnostic. Prostate: Gland size is 4.3 x 4.0 x 5.2 cm; ellipsoid gland volume is 47 mL. There is intrinsic T1 hyperintensity within the prostate gland peripheral zone suggestive of hemorrhage such as sequela of prior biopsy. Mild linear and wedge-shaped ADC hypointensities present within the prostate peripheral zone with indistinct T2 correlates (PI-RADS 2 findings). Enlargement of the prostate transitional zone with findings typical of benign prostatic hyperplasia. No large lesion strongly stands out against background parenchymal changes of BPH on T2 weighted images (PI-RADS 2 findings). Genitourinary system: Bladder wall thickness is normal. Distal ureters are non distended. Bowel and peritoneum: No pathologic free pelvic fluid. Inferior colon and small bowel loops are normal in caliber. Nodes and vessels: No pelvic or inguinal adenopathy by size criteria. Iliac vessels are normal in caliber. Soft tissues: No inguinal hernias. Bones: Marrow demonstrates normal overall signal, without lesions to suggest metastases. IMPRESSION: 1. No PI-RADS Category 3 or higher lesions identified within the prostate gland. 2. No suspicious lymph nodes visualized in the imaged pelvis. Dictated by: Jason Alan M.D. on 12/09/2021 at 11:01 Approved by: Jason Alan M.D. on 12/09/2021 at 11:57
== END ==
PROVIDERS: PCP Internal Medicine; Referring Provider Specialist; Visit Provider Specialist
DX: C61 Malignant neoplasm of prostate (principal); R33.9 Retention of urine, unspecified; N13.8 Other obstructive and reflux uropathy; N52.9 Male erectile dysfunction, unspecified
CPT/HCPCS: 72197; A9579

== ENCOUNTER → 2022-06-02 06:52 | Outpatient (CLI) | payer MEDICARE, OTHER, SELFPAY ==
[2020-10-16 08:03] VITALS: BMI 35.2
[2022-06-02 08:37] LABS: HEMOLYSIS < 15 (0-50)
[2022-06-02 08:49] LABS: Alanine Aminotransferase 24 IU/L (<50); Albumin 3.8 g/dL (3.5-5.0); Albumin Globulin Ratio 1.3 (1.0-2.8); Alkaline Phosphatase 64 U/L (38-126); Aspartate Aminotransferase 24 IU/L (17-59); BUN Creatinine Ratio 15.3 (6-22); Bilirubin Total 0.6 mg/dL (0.2-1.3); Blood Urea Nitrogen 13 mg/dL (9-20); Carbon Dioxide 31 mmol/L (22-32); Chloride 103 mmol/L (98-107); Cholesterol 144 mg/dL (140-199); Estimated Glomerular Filt Rate > 60 mL/min (>60); Glucose 88 mg/dL (80-110); HDL Cholesterol 40 mg/dL (40-60); LDL Cholesterol Calculated 76 mg/dL (<100); Potassium 4.1 mmol/L (3.4-5.1); Sodium 140 mmol/L (137-145); Total Protein 6.8 g/dL (6.3-8.2); Triglycerides 142 mg/dL (35-150)
[2022-06-02 09:21] LABS: Prostate Specific Antigen 4.96 ng/mL (0.10-4.00)
== END ==
PROVIDERS: PCP Internal Medicine; Referring Provider Internal Medicine; Visit Provider Internal Medicine
DX: I10 Essential (primary) hypertension (principal); C61 Malignant neoplasm of prostate; E78.2 Mixed hyperlipidemia
CPT/HCPCS: 36415; 80053; 80061; 84153

== ENCOUNTER → 2022-07-17 06:49 | Outpatient (CLI) | payer MEDICARE, OTHER, SELFPAY ==
[2022-06-24 08:23] VITALS: BMI 35.2
[2022-07-20 18:34] LABS: Fecal Immunochemical Test Negative (Negative)
== END ==
PROVIDERS: PCP Internal Medicine; Referring Provider Internal Medicine; Visit Provider Internal Medicine
DX: Z12.11 Encounter for screening for malignant neoplasm of colon (principal)
CPT/HCPCS: 82274

== ENCOUNTER → 2022-12-14 06:55 | Outpatient (CLI) | payer MEDICARE, OTHER, SELFPAY ==
[2022-06-24 08:23] VITALS: BMI 35.2
[2022-12-14 08:26] LABS: Add Manual Diff / Slide Review NO; Basophils Absolute Auto 0 /uL (0-100); Basophils Percent Auto 0.4 % (0-2); Eosinophils Absolute Auto 100 /uL (0-450); Eosinophils Percent Auto 1.8 % (2-4); Hematocrit 41.8 % (41-53); Hemoglobin 14.5 g/dL (13.5-17.5); Lymphocytes Absolute Auto 1500 /uL (1100-4500); Lymphocytes Percent Auto 23.1 % (25-40); Mean Corpuscular HGB Conc 34.8 % (30-36); Mean Corpuscular Hemoglobin 30.6 PG (26-34); Mean Corpuscular Volume 87.9 fL (80-100); Monocytes Absolute Auto 500 /uL (0-900); Monocytes Percent Auto 7.6 % (3-14); Neutrophils Absolute Auto 4400 /uL (1500-7000); Neutrophils Percent Auto 67.1 % (50-75); Platelet Count 261 X10^3/uL (150-400); Red Blood Cell Count 4.76 X10^6/uL (4.5-5.9); Red Cell Distribution Width 13.4 % (11.6-14.8); White Blood Cell Count 6.5 X10^3/uL (4.5-11.0)
[2022-12-14 08:30] LABS: Alanine Aminotransferase 19 IU/L (<50); Albumin Globulin Ratio 1.3 (1.0-2.8); Alkaline Phosphatase 60 U/L (38-126); Aspartate Aminotransferase 23 IU/L (17-59); BUN Creatinine Ratio 17.3 (6-22); Bilirubin Total 0.6 mg/dL (0.2-1.3); Blood Urea Nitrogen 14 mg/dL (9-20); Calcium 9.1 mg/dL (8.4-10.2); Carbon Dioxide 27 mmol/L (22-32); Chloride 106 mmol/L (98-107); Cholesterol 141 mg/dL (140-199); Estimated Glomerular Filt Rate > 60 mL/min (>60); Globulin 3.1 g/dL (1.7-4.1); Glucose 92 mg/dL (80-110); HDL Cholesterol 38 mg/dL (40-60); HEMOLYSIS < 15 (0-50); LDL Cholesterol Calculated 77 mg/dL (<100); Potassium 3.9 mmol/L (3.4-5.1); Sodium 141 mmol/L (137-145); Total Protein 7.1 g/dL (6.3-8.2); Triglycerides 129 mg/dL (35-150)
[2022-12-14 08:55] LABS: Prostate Specific Antigen 5.69 ng/mL (0.10-4.00)
== END ==
PROVIDERS: PCP Internal Medicine; Referring Provider Specialist; Visit Provider Specialist
DX: C61 Malignant neoplasm of prostate (principal); I10 Essential (primary) hypertension; E78.2 Mixed hyperlipidemia
CPT/HCPCS: 36415; 80053; 80061; 84153; 85025

== ENCOUNTER → 2023-03-12 08:02 | Outpatient (CLI) | payer MEDICARE, OTHER, SELFPAY ==
[2022-06-24 08:23] VITALS: BMI 35.2
[2023-03-14 11:09] LABS: PSA Free % 13.9 % (.); PSA, Total 4.9 ng/mL (0.0-4.0)
== END ==
PROVIDERS: PCP Internal Medicine; Referring Provider Specialist; Visit Provider Specialist
DX: C61 Malignant neoplasm of prostate (principal)
CPT/HCPCS: 36415; 84153; 84154

== ENCOUNTER → 2023-06-30 06:42 | Outpatient (CLI) | payer MEDICARE, OTHER, SELFPAY ==
[2022-06-24 08:23] VITALS: BMI 35.2
[2023-06-30 08:34] LABS: Alanine Aminotransferase 18 IU/L (<50); Albumin 4.2 g/dL (3.5-5.0); Albumin Globulin Ratio 1.8 (1.0-2.8); Alkaline Phosphatase 65 U/L (38-126); Aspartate Aminotransferase 22 IU/L (17-59); BUN Creatinine Ratio 17.9 (6-22); Bilirubin Total 0.7 mg/dL (0.2-1.3); Blood Urea Nitrogen 15 mg/dL (9-20); Calcium 9.1 mg/dL (8.4-10.2); Carbon Dioxide 29 mmol/L (22-32); Chloride 107 mmol/L (98-107); Cholesterol 140 mg/dL (140-199); Estimated Glomerular Filt Rate > 60 mL/min (>60); Globulin 2.4 g/dL (1.7-4.1); Glucose 87 mg/dL (80-110); HDL Cholesterol 40 mg/dL (40-60); HEMOLYSIS < 15 (0-50); LDL Cholesterol Calculated 74 mg/dL (<100); Sodium 139 mmol/L (137-145); Total Protein 6.6 g/dL (6.3-8.2); Triglycerides 129 mg/dL (35-150)
== END ==
PROVIDERS: PCP Internal Medicine; Referring Provider Internal Medicine; Visit Provider Internal Medicine
DX: G25.0 Essential tremor (principal); I10 Essential (primary) hypertension; E78.2 Mixed hyperlipidemia
CPT/HCPCS: 36415; 80053; 80061

== ENCOUNTER 2023-07-11 06:38 | Emergency (ER) | payer MEDICARE, OTHER, SELFPAY ==
[2022-06-24 08:23] VITALS: BMI 35.2
[2023-07-11] VITALS (10 sets, daily range): BP systolic 101–155; BP diastolic 67–82; PULSE 65–76; RESP 18; TEMP 36.6; O2SAT 93–96; BMI 36.2
--- NOTE | 2023-07-11 06:48 | ED_ITS ---
HPI - Weakness General Chief complaint: Dizziness Stated complaint: blood pressure low Time Seen by Provider: 07/11/23 06:41 History of Present Illness HPI Narrative: Patient is a 72-year-old male history of DVT on Eliquis, hypertension hyperlipidemia presenting today with lightheadedness. He reports he was feeling lightheaded yesterday. He says that he was working out in the yd last 3 days in a row. He was taking his blood pressure systolic was never below 100 but range from 100-110. He never passed out denies any chest pain or shortness of breath. It sounds like he had some issues with his blood pressure cuff it frequently read error. He thought about it all night and was worried and decided to come get checked out. He has no shortness of breath no cough no fever no abdominal pain nausea vomiting or any other symptoms. Related Data Home Medications Medication Instructions Recorded Confirmed ciclopirox 1 % shampoo 1 % topical TID PRN Scalp issue 01/23/20 03/24/23 Bacillus coagulans 400 million cell PO 06/03/21 03/24/23 cell chewable tablet (Digestive Advantage Probiotics-Prebiotic) cholecalciferol (vitamin D3) 25 25 mcg PO DAILY 06/03/21 03/24/23 mcg (1,000 unit) capsule clobetasol 0.025 % topical cream 1 applic topical DAILY 06/03/21 03/24/23 multivitamin 1 ea PO DAILY 01/15/23 03/24/23 Previous Rx's Medication Instructions Recorded cyclobenzaprine 10 mg tablet 10 mg PO TID PRN muscle spasm #30 11/29/20 tabs apixaban 5 mg tablet (Eliquis) 5 mg PO BID leg clot #180 tabs 12/21/22 simvastatin 40 mg tablet 40 mg PO QPM #90 tabs 02/24/23 tamsulosin 0.4 mg capsule 0.8 mg (2 x 0.4 mg) PO QPM #180 03/24/23 caps amlodipine 10 mg tablet 10 mg PO DAILY #90 tabs 05/10/23 metoprolol succinate 25 mg 25 mg PO BID #180 tabs 06/09/23 tablet,extended release 24 hr Allergies Allergy/AdvReac Type Severity Reaction Status Date / Time No Known Drug Allergies Allergy Verified 01/15/23 13:32 Patient History Medical History Incomplete bladder emptying Essential tremor Prostate cancer History of urinary retention History of nephrolithiasis Erectile dysfunction BPH w urinary obs/LUTS Hearing impaired Bradycardia Kidney stones Elevated PSA Atrial flutter Hypertension Personal history of pulmonary embolism (01/07/11) Hx of venous thrombosis and embolism (01/07/11) Osteoarthritis of knee (06/13/13) Mixed hyperlipidemia Surgical History Total knee replacement status Hx of cholecystectomy Family History Father Fam hx-ischem heart disease Social History marital status: number of children: 3 household members: spouse lives independently: Yes caregiver/support person: No housing: house pets and animals: Yes education level: college occupational status: other Previous occupational history: [employer]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 [employer]: [employer] leisure activities: exercise and other Smoking Status: Never smoker Tobacco: How many years used: 0 quit status: quit date established second hand exposure: No alcohol intake: former substance use type: does not use and other Smoking Status: Never smoker Substance Use Type: does not use Exam Initial Vital Signs Initial Vital Signs: Vital Signs Pulse Rate 74 07/11/23 06:44 Pulse Oximetry 96 07/11/23 06:44 GENERAL: Alert pleasant well-appearing 72-year-old male and in no acute distress. HEENT: Head atraumatic,EOMI, pupils reactive, face symmetric, moist mucous membranes CARDIOVASCULAR: Regular rate and rhythm without murmurs, rubs or gallops. RESPIRATORY: Breath sounds equal bilaterally, no wheezes rales or rhonchi. ABDOMEN: Soft, nontender. Normoactive bowel sounds all 4 quadrants. No guarding or rebound. EXTREMITIES: Normal range of motion, no clubbing or edema. Neurovascularly intact NEUROLOGICAL: Alert and oriented x4.Normal gait and speech. SKIN: Warm, dry, no laceration, no petechiae, no rashes or lesions. Course Orders Ordered: ED Orders 07/11/23 07:00 CBC Auto Diff [Complete Blood Count AUTO DIFF] Stat CMP [Comprehensive Metabolic Panel] Stat Discontinued Medications Sodium Chloride (Normal Saline 0.9%) 1,000 mls @ 1,000 mls/hr IV BOLUS ONE Stop: 07/11/23 07:54 Last Infusion: 07/11/23 08:10 Dose: Infused Documented By: Admin: 07/11/23 07:07 Dose: 1,000 mls/hr Documented By: LIANA Vital Signs Vital signs: Vital Signs - 8 hr 07/11/23 06:44 07/11/23 06:47 07/11/23 06:47 Temperature Pulse Rate 74 76 Respiratory Rate Blood Pressure 121/67 Pulse Oximetry 96 95 Oxygen Delivery Method 07/11/23 06:48 07/11/23 07:00 07/11/23 07:05 Temperature 97.9 F Pulse Rate 76 68 Respiratory Rate 18 Blood Pressure 155/82 H 118/68 Pulse Oximetry 96 94 Oxygen Delivery Method Room Air 07/11/23 07:05 07/11/23 07:30 07/11/23 07:31 Temperature Pulse Rate 65 Respiratory Rate Blood Pressure 101/69 Pulse Oximetry 95 94 Oxygen Delivery Method 07/11/23 07:31 07/11/23 07:55 07/11/23 07:55 Temperature Pulse Rate 65 73 Respiratory Rate Blood Pressure 105/75 Pulse Oximetry 93 94 Oxygen Delivery Method 07/11/23 08:00 07/11/23 08:10 07/11/23 08:10 Temperature Pulse Rate 67 71 Respiratory Rate Blood Pressure 131/79 Pulse Oximetry 95 95 Oxygen Delivery Method MDM - Weakness Lab Data 07/11/23 07:00 07/11/23 07:00 Labs: Lab Results 07/11/23 Range/Units 07:00 WBC 8.0 (4.5-11.0) X10^3/uL RBC 4.86 (4.5-5.9) X10^6/uL Hgb 14.8 (13.5-17.5) g/dL Hct 43.0 (41-53) % MCV 88.5 (80-100) fL MCH 30.4 (26-34) PG MCHC 34.4 (30-36) % RDW 13.5 (11.6-14.8) % Plt Count 289 (150-400) X10^3/uL Neut % (Auto) 73.7 (50-75) % Lymph % (Auto) 18.7 L (25-40) % Stewart % (Auto) 5.8 (3-14) % Eos % (Auto) 1.4 L (2-4) % Baso % (Auto) 0.4 (0-2) % Neut # (Auto) 5900 (9385-9491) /uL Lymph # (Auto) 1500 (3021-1541) /uL Stewart # (Auto) 500 (0-900) /uL Eos # (Auto) 100 (0-450) /uL Baso # (Auto) 0 (0-100) /uL Sodium 139 (137-145) mmol/L Potassium 4.2 (3.4-5.1) mmol/L Chloride 109 H (98-107) mmol/L Carbon Dioxide 27 (22-32) mmol/L BUN 20 (9-20) mg/dL Creatinine 0.88 (0.66-1.25) mg/dL Estimated GFR > 60 (>60) mL/min BUN/Creatinine Ratio 22.7 H (6-22) Glucose 112 H (80-110) mg/dL Calcium 8.8 (8.4-10.2) mg/dL Total Bilirubin 0.7 (0.2-1.3) mg/dL AST 22 (17-59) IU/L ALT 19 (<50) IU/L Alkaline Phosphatase 60 (38-126) U/L Total Protein 7.0 (6.3-8.2) g/dL Albumin 4.1 (3.5-5.0) g/dL Globulin 2.9 (1.7-4.1) g/dL Albumin/Globulin Ratio 1.4 (1.0-2.8) MDM Narrative Medical decision making narrative: Patient is 72-year-old male presents today with lightheadedness and possibly low blood pressure. His blood pressure is within normal limits this morning. He has no focal deficits blood work is reviewed without evidence of electrolyte abnormality CLARISA or anemia. He overall is feeling much better. Blood pressure was a little low, but is improved, symptoms have also improved. He ambulated in the ED without issue. At this time supportive care only Discharge Plan Departure Patient Disposition: Home Clinical Impression: Intermittent lightheadedness Activity Restrictions/Additional Instructions: *You have been diagnosed with lightheadedness *What to do: At this time blood pressure is within normal limits blood work is overall reassuring. Please go home rest and stay hydrated *Continue to take medications as directed *Follow up with your primary care provider in 2-3 days or call [phone] *Return to ER if you should have increasing weakness passing out chest pain palpitations shortness of breath or any new, worsening or concerning symptoms Prescriptions: No Action Eliquis 5 mg tablet 5 mg PO BID Qty: 180 3RF simvastatin 40 mg tablet 40 mg PO QPM Qty: 90 2RF amlodipine 10 mg tablet 10 mg PO DAILY Qty: 90 3RF Patient Comments: Pt states he takes in the evenings metoprolol succinate 25 mg tablet extended release 24 hr 25 mg PO BID Qty: 180 2RF cyclobenzaprine 10 mg tablet 10 mg PO TID PRN (Reason: muscle spasm) Qty: 30 0RF ciclopirox 1 % shampoo 1 % Topical TID PRN (Reason: Scalp issue) cholecalciferol (vitamin D3) 25 mcg (1,000 unit) capsule 25 mcg PO DAILY Digestive Advantage Probio-Pre 400 million cell tablet,chewable PO clobetasol 0.025 % cream 1 applic topical DAILY multivitamin Liquid 1 ea PO DAILY tamsulosin 0.4 mg capsule 0.8 mg PO QPM Qty: 180 3RF Referrals: Vidal Carpio MD [Primary Care Provider] - Stand Alone Forms: Patient Portal/API
[2023-07-11] MEDS: SODIUM CHLORIDE 0.9% 1,000 ML 1000 ML IV (07:07)
[2023-07-11 07:14] LABS: Add Manual Diff / Slide Review NO; Basophils Absolute Auto 0 /uL (0-100); Basophils Percent Auto 0.4 % (0-2); Eosinophils Absolute Auto 100 /uL (0-450); Eosinophils Percent Auto 1.4 % (2-4); Hemoglobin 14.8 g/dL (13.5-17.5); Lymphocytes Absolute Auto 1500 /uL (1100-4500); Lymphocytes Percent Auto 18.7 % (25-40); Mean Corpuscular HGB Conc 34.4 % (30-36); Mean Corpuscular Hemoglobin 30.4 PG (26-34); Mean Corpuscular Volume 88.5 fL (80-100); Monocytes Absolute Auto 500 /uL (0-900); Monocytes Percent Auto 5.8 % (3-14); Neutrophils Absolute Auto 5900 /uL (1500-7000); Neutrophils Percent Auto 73.7 % (50-75); Platelet Count 289 X10^3/uL (150-400); Red Blood Cell Count 4.86 X10^6/uL (4.5-5.9); Red Cell Distribution Width 13.5 % (11.6-14.8)
[2023-07-11 07:26] LABS: Alanine Aminotransferase 19 IU/L (<50); Albumin 4.1 g/dL (3.5-5.0); Albumin Globulin Ratio 1.4 (1.0-2.8); Alkaline Phosphatase 60 U/L (38-126); Aspartate Aminotransferase 22 IU/L (17-59); BUN Creatinine Ratio 22.7 (6-22); Bilirubin Total 0.7 mg/dL (0.2-1.3); Blood Urea Nitrogen 20 mg/dL (9-20); Calcium 8.8 mg/dL (8.4-10.2); Carbon Dioxide 27 mmol/L (22-32); Chloride 109 mmol/L (98-107); Estimated Glomerular Filt Rate > 60 mL/min (>60); Globulin 2.9 g/dL (1.7-4.1); Glucose 112 mg/dL (80-110); HEMOLYSIS < 15 (0-50); Potassium 4.2 mmol/L (3.4-5.1); Sodium 139 mmol/L (137-145)
== END 2023-07-11 08:10 | disposition home or self-care (01) ==
PROVIDERS: Emergency Provider Emergency Medicine; PCP Internal Medicine
DX: R42 Dizziness and giddiness (principal)
CPT/HCPCS: 36415; 80053; 85025; 99283; 99284

== ENCOUNTER → 2023-07-19 06:59 | Outpatient (CLI) | payer MEDICARE, OTHER, SELFPAY ==
[2022-06-24 08:23] VITALS: BMI 35.2
[2023-07-20 08:45] LABS: Fecal Immunochemical Test Negative (Negative)
== END ==
PROVIDERS: PCP Internal Medicine; Referring Provider Internal Medicine; Visit Provider Internal Medicine
DX: Z12.11 Encounter for screening for malignant neoplasm of colon (principal)
CPT/HCPCS: 82274

== ENCOUNTER → 2023-09-07 07:15 | Outpatient (CLI) | payer MEDICARE, OTHER, SELFPAY ==
[2022-06-24 08:23] VITALS: BMI 35.2
[2023-09-07 09:21] LABS: Prostate Specific Antigen 5.71 ng/mL (0.10-4.00)
== END ==
LOC: LAB 07:15
PROVIDERS: PCP Internal Medicine; Referring Provider Specialist; Visit Provider Specialist
DX: R97.20 Elevated prostate specific antigen [PSA] (principal)
CPT/HCPCS: 36415; 84153

== ENCOUNTER → 2024-03-03 06:51 | Outpatient (CLI) | payer MEDICARE, OTHER, SELFPAY ==
[2022-06-24 08:23] VITALS: BMI 35.2
[2024-03-03 08:45] LABS: Prostate Specific Antigen 6.84 ng/mL (0.10-4.00)
== END ==
PROVIDERS: PCP Internal Medicine; Referring Provider Internal Medicine; Visit Provider Internal Medicine
DX: C61 Malignant neoplasm of prostate (principal); G25.0 Essential tremor; I10 Essential (primary) hypertension; E78.2 Mixed hyperlipidemia
CPT/HCPCS: 36415; 84153

== ENCOUNTER 2024-04-03 12:02 | Emergency (ER) | payer MEDICARE, OTHER, SELFPAY ==
[2022-06-24 08:23] VITALS: BMI 35.2
[2024-04-03] VITALS (11 sets, daily range): BP systolic 112–143; BP diastolic 70–96; PULSE 58–139; RESP 15–20; TEMP 36.4; O2SAT 94–97; BMI 35.9
--- NOTE | 2024-04-03 12:19 | DI.RAD.S_ITS ---
PROCEDURE: XR CHEST 1V INDICATIONS: chest pain TECHNIQUE: One view of the chest was acquired. COMPARISON: [facility], CR, XR CHEST 1V, 11/29/2018, 8:29. FINDINGS: Surgical changes and devices: None. Lungs and pleura: Lungs are clear. No pleural effusions or pneumothorax. Mediastinum: Mediastinal contours appear normal. Heart size is normal. Bones and chest wall: No suspicious bony lesions. Overlying soft tissues appear unremarkable. IMPRESSION: No acute cardiopulmonary abnormality is seen. Dictated by: Michael Littlejohn M.D. on 04/03/2024 at 13:24 Approved by: Michael Littlejohn M.D. on 04/03/2024 at 13:24
--- NOTE | 2024-04-03 12:22 | EKG_ITS ---
[address] [address] [address] [address] Test Date: 2024-04-03 Pat Name: Donaldo Fermin Department: [facility] Room: Gender: Male Creative Lead: : 1950 Requested By: Order Number: [id number] Reading MD: Kody Ga Measurements Intervals [place] Rate: 125 P: UT: QRS: 32 QRSD: 96 T: 1 QT: 368 QTc: 531 Interpretive Statements Atrial fibrillation with rapid ventricular response Electronically Signed On 04-03-2024 18:21:23 PST by Kody Ga
[2024-04-03 12:53] LABS: INR 1.1 (0.9-1.3); Prothrombin Time 12.5 SECONDS (9.4-12.5)
[2024-04-03 12:55] LABS: PTT Partial Thromboplastin Tim 35 SECONDS (25.1-36.5)
[2024-04-03 12:56] LABS: Alanine Aminotransferase 26 IU/L (<50); Albumin 4.3 g/dL (3.5-5.0); Albumin Globulin Ratio 1.4 (1.0-2.8); Alkaline Phosphatase 56 U/L (38-126); Aspartate Aminotransferase 28 IU/L (17-59); BUN Creatinine Ratio 13.2 (6-22); Bilirubin Total 0.6 mg/dL (0.2-1.3); Blood Urea Nitrogen 16 mg/dL (9-20); Calcium 9.1 mg/dL (8.4-10.2); Carbon Dioxide 23 mmol/L (22-32); Chloride 108 mmol/L (98-107); Creatine Kinase 98 U/L (55-170); Estimated Glomerular Filt Rate > 60 mL/min (>60); Globulin 3.1 g/dL (1.7-4.1); Glucose 107 mg/dL (80-110); HEMOLYSIS < 15 (0-50); Lipase 64 U/L (23-300); Magnesium 2.1 mg/dL (1.6-2.3); Potassium 4.2 mmol/L (3.4-5.1); Sodium 140 mmol/L (137-145); Total Protein 7.4 g/dL (6.3-8.2)
[2024-04-03 12:58] LABS: Add Manual Diff / Slide Review NO; Basophils Absolute Auto 0 /uL (0-100); Basophils Percent Auto 0.3 % (0-2); Eosinophils Absolute Auto 100 /uL (0-450); Eosinophils Percent Auto 0.8 % (2-4); Hematocrit 46.6 % (41-53); Hemoglobin 15.8 g/dL (13.5-17.5); Lymphocytes Absolute Auto 1800 /uL (1100-4500); Lymphocytes Percent Auto 21.9 % (25-40); Mean Corpuscular HGB Conc 33.8 % (30-36); Mean Corpuscular Hemoglobin 30.5 PG (26-34); Monocytes Absolute Auto 700 /uL (0-900); Monocytes Percent Auto 7.9 % (3-14); Neutrophils Absolute Auto 5800 /uL (1500-7000); Neutrophils Percent Auto 69.1 % (50-75); Platelet Count 314 X10^3/uL (150-400); Red Blood Cell Count 5.18 X10^6/uL (4.5-5.9); White Blood Cell Count 8.4 X10^3/uL (4.5-11.0)
[2024-04-03 13:07] LABS: NT-proBNP (BNP-Adult 18+) 1200 pg/mL (<125); Troponin I < 0.012 ng/mL (0.01-0.034)
--- NOTE | 2024-04-03 15:07 | ED.DIZZY ---
HPI - Dizziness General Chief Complaint: Dizziness Stated Complaint: dizziness, LBP Time Seen by Provider: 04/03/24 15:02 Source: patient Mode of arrival: Ambulatory History of Present Illness HPI Narrative: Patient is 73-year-old male history of atrial atrial flutter on Eliquis essential tremor, DVT/PE hypertension presenting today with dizziness. He reports that he went off his Eliquis 2 days ago in preparation for a prostate biopsy tomorrow morning. Yesterday he started noticing that he was just a little bit off little dizzy. Every time he stood he had to wait and then he was able to start walking again. He has no numbness tingling or weakness no real chest pain. He is noted to have a heart rate in the 120s but it was actually quite variable. He reports he tried to take his blood pressure at home but it would not read or was too low. Related Data Home Medications Medication Instructions Recorded Confirmed ciclopirox 1 % shampoo 1 % topical TID PRN Scalp issue 01/23/20 03/16/24 Bacillus coagulans 400 million cell PO 06/03/21 03/16/24 cell chewable tablet (Digestive Advantage Probiotics-Prebiotic) cholecalciferol (vitamin D3) 25 25 mcg PO DAILY 06/03/21 03/16/24 mcg (1,000 unit) capsule clobetasol 0.025 % topical cream 1 applic topical DAILY 06/03/21 03/16/24 multivitamin 1 ea PO DAILY 01/15/23 03/16/24 Previous Rx's Medication Instructions Recorded cyclobenzaprine 10 mg tablet 10 mg PO TID PRN muscle spasm #30 11/29/ tabs tamsulosin 0.4 mg capsule 0.8 mg (2 x 0.4 mg) PO QPM #180 03/24/23 caps amlodipine 10 mg tablet 10 mg PO DAILY #90 tabs 09/16/23 simvastatin 40 mg tablet 40 mg PO QPM #90 tabs 11/22/23 apixaban 5 mg tablet (Eliquis) 5 mg PO BID leg clot #180 tabs 12/09/23 metoprolol succinate 25 mg 25 mg PO BID #180 tabs 03/06/24 tablet,extended release 24 hr levofloxacin 750 mg tablet 750 mg PO DAILY #3 tabs 03/16/24 Allergies Allergy/AdvReac Type Severity Reaction Status Date / Time No Known Drug Allergies Allergy Verified 03/16/24 08:08 Patient History Medical History Incomplete bladder emptying Essential tremor Prostate cancer History of urinary retention History of nephrolithiasis Erectile dysfunction BPH w urinary obs/LUTS Hearing impaired Bradycardia Kidney stones Elevated PSA Atrial flutter Hypertension Personal history of pulmonary embolism (01/07/11) Hx of venous thrombosis and embolism (01/07/11) Osteoarthritis of knee (06/13/13) Mixed hyperlipidemia Surgical History Total knee replacement status Hx of cholecystectomy Family History Father Fam hx-ischem heart disease Social History marital status: number of children: 3 household members: spouse lives independently: Yes caregiver/support person: No housing: house pets and animals: Yes education level: college occupational status: other 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 yolanda/rastafari: [employer] leisure activities: exercise and other Smoking Status: Never smoker Tobacco: How many years used: 0 quit status: quit date established second hand exposure: No alcohol intake: former substance use type: does not use and other Smoking Status: Never smoker Exam Initial Vital Signs Initial Vital Signs: Vital Signs Temperature 97.6 F 04/03/24 12:09 Pulse Rate 69 04/03/24 12:09 Respiratory Rate 18 04/03/24 12:09 Blood Pressure 137/73 04/03/24 12:09 Pulse Oximetry 95 04/03/24 12:09 Oxygen Delivery Method Room Air 04/03/24 12:09 GENERAL: Alert 73-year-old male and in no acute distress. HEENT: Head atraumatic,EOMI, pupils reactive, face symmetric, moist mucous membranes CARDIOVASCULAR: Irregularly irregular tachycardia RESPIRATORY: Breath sounds equal bilaterally, no wheezes rales or rhonchi. ABDOMEN: Soft, nontender. Normoactive bowel sounds all 4 quadrants. No guarding or rebound. EXTREMITIES: Normal range of motion, no clubbing or edema. Neurovascularly intact NEUROLOGICAL: Alert and oriented x4.Normal gait and speech. SKIN: Warm, dry, no laceration, no petechiae, no rashes or lesions. Course Orders Ordered: ED Orders 04/03/24 12:19 XR chest 1V Stat EKG-12 Lead Stat 04/03/24 12:35 Complete Blood Count AUTO DIFF Stat Comprehensive Metabolic Panel Stat Lipase Stat Magnesium Stat NT-proBNP (BNP-Adult 18+) Stat PTT Partial Thromboplastin Ghassan Stat Prothrombin Time INR Stat Troponin & CK Cardiac Panel Stat Discontinued Medications Diltiazem HCl (Diltiazem 25 Mg/5 Ml Sdv) 10 mg IV NOW ONE Stop: 04/03/24 15:22 Last Admin: 04/03/24 15:35 Dose: 10 mg Documented By: MINESH Metoprolol Succinate (Metoprolol Er 25 Mg Tablet) 25 mg PO NOW ONE Stop: 04/03/24 15:22 Last Admin: 04/03/24 15:34 Dose: 25 mg Documented By: MINESH Vital Signs Vital signs: Vital Signs - 8 hr 04/03/24 12:09 04/03/24 13:03 04/03/24 13:04 Temperature 97.6 F Pulse Rate 69 58 L Respiratory Rate 18 Blood Pressure 137/73 112/70 Pulse Oximetry 95 96 Oxygen Delivery Method Room Air 04/03/24 13:04 04/03/24 13:30 04/03/24 14:00 Temperature Pulse Rate 60 114 H 139 H Respiratory Rate 16 20 Blood Pressure Pulse Oximetry 97 95 95 Oxygen Delivery Method 04/03/24 14:30 04/03/24 15:00 04/03/24 15:30 Temperature Pulse Rate 122 H 104 H 117 H Respiratory Rate 15 16 18 Blood Pressure Pulse Oximetry 94 95 96 Oxygen Delivery Method 04/03/24 15:34 04/03/24 15:35 04/03/24 15:35 Temperature Pulse Rate 133 H 133 H Respiratory Rate Blood Pressure 143/96 H 143/96 H 143/96 H Pulse Oximetry Oxygen Delivery Method 04/03/24 15:35 04/03/24 16:05 Temperature 97.5 F L Pulse Rate 132 H Respiratory Rate 16 Blood Pressure Pulse Oximetry 95 Oxygen Delivery Method Room Air MDM - Dizziness Lab Data 04/03/24 12:35 04/03/24 12:35 Labs: Lab Results 04/03/24 Range/Units 12:35 WBC 8.4 (4.5-11.0) X10^3/uL RBC 5.18 (4.5-5.9) X10^6/uL Hgb 15.8 (13.5-17.5) g/dL Hct 46.6 (41-53) % MCV 90.0 (80-100) fL MCH 30.5 (26-34) PG MCHC 33.8 (30-36) % RDW 13.0 (11.6-14.8) % Plt Count 314 (150-400) X10^3/uL Neut % (Auto) 69.1 (50-75) % Lymph % (Auto) 21.9 L (25-40) % Ritchie % (Auto) 7.9 (3-14) % Eos % (Auto) 0.8 L (2-4) % Baso % (Auto) 0.3 (0-2) % Neut # (Auto) 5800 (2377-8921) /uL Lymph # (Auto) 1800 (9800-1026) /uL Ritchie # (Auto) 700 (0-900) /uL Eos # (Auto) 100 (0-450) /uL Baso # (Auto) 0 (0-100) /uL PT 12.5 (9.4-12.5) SECONDS INR 1.1 (0.9-1.3) APTT 35 (25.1-36.5) SECONDS Sodium 140 (137-145) mmol/L Potassium 4.2 (3.4-5.1) mmol/L Chloride 108 H (98-107) mmol/L Carbon Dioxide 23 (22-32) mmol/L BUN 16 (9-20) mg/dL Creatinine 1.21 (0.66-1.25) mg/dL Estimated GFR > 60 (>60) mL/min BUN/Creatinine Ratio 13.2 (6-22) Glucose 107 (80-110) mg/dL Calcium 9.1 (8.4-10.2) mg/dL Magnesium 2.1 (1.6-2.3) mg/dL Total Bilirubin 0.6 (0.2-1.3) mg/dL AST 28 (17-59) IU/L ALT 26 (<50) IU/L Alkaline Phosphatase 56 (38-126) U/L Total Creatine Kinase 98 (55-170) U/L Troponin I < 0.012 (0.01-0.034) ng/mL NT-Pro-B Natriuret Pep 1200 H (<125) pg/mL Total Protein 7.4 (6.3-8.2) g/dL Albumin 4.3 (3.5-5.0) g/dL Globulin 3.1 (1.7-4.1) g/dL Albumin/Globulin Ratio 1.4 (1.0-2.8) Lipase 64 (23-300) U/L Imaging Data Chest x-ray: Radiologist's Impression: PROCEDURE: XR CHEST 1V INDICATIONS: chest pain TECHNIQUE: One view of the chest was acquired. COMPARISON: [facility], CR, XR CHEST 1V, 11/29/2018, 8:29. FINDINGS: Surgical changes and devices: None. Lungs and pleura: Lungs are clear. No pleural effusions or pneumothorax. Mediastinum: Mediastinal contours appear normal. Heart size is normal. Bones and chest wall: No suspicious bony lesions. Overlying soft tissues appear unremarkable. IMPRESSION: No acute cardiopulmonary abnormality is seen. Dictated by: Michael Littlejohn M.D. on 04/03/2024 at 13:24 ECG Data Attestation: I personally reviewed and interpreted this ECG as follows: Prior ECG tracings: available for review Interpretation: Atrial fibrillation rate 125 no ischemia noted mild artifact previous EKGs in 2019 showed a sinus rhythm MDM Narrative Medical decision making narrative: MDM CC: Dizziness Complicating co-morbidities: Prior DVT, PE atrial flutter on Eliquis Medical records reviewed: PCP note from 12/17/2023 reviewed Differential considered: Atrial flutter atrial fibrillation Exam documented above, pertinent findings include: Alert well-appearing 73-year-old male irregular heart Lab Test results independently reviewed as above. Pertinent findings: CBC no leukocytosis no anemia CMP no electrolyte abnormality creatinine 1.21 previously 0.8 Troponin negative, BNP 1200 Independently reviewed EKG as above AFib with RVR Imaging studies independently reviewed: Chest x-ray no acute cardiopulmonary process Consultations: Dr. Cha, urology updated on patient's symptoms states that if heart rate is controlled in his medically cleared still able to do biopsy tomorrow Treatments: Cardizem and metoprolol Re-evaluations: Heart rate improved with Cardizem and metoprolol blood pressure remained stable Discussion: Patient is 73-year-old male history of atrial flutter presents today with AFib with RVR. He has some mild dizziness but has an NIH stroke scale of 0. No suspicion for CVA. Blood work today is overall reassuring. I suspect his symptoms are due to his AFib with RVR he is minimally symptomatic otherwise. He has not a candidate for cardioversion he has been off Eliquis for 48 hours. Discharge Plan Departure Patient Disposition: Home Clinical Impression: Atrial fibrillation with rapid ventricular response Instructions: Atrial Fibrillation Activity Restrictions/Additional Instructions: *You have been diagnosed with atrial fibrillation *What to do: At this time Dr. Cha says it is long as your heart rate is under control he can still biopsy you tomorrow *Continue to take medications as directed Metoprolol 25 mg twice a day as scheduled if heart rate is greater than 120 you may take 1 more Resume Eliquis as scheduled *Follow up with your primary care provider in 2-3 days or call [phone] *Return to ER if you should have increasing chest pain palpitations shortness of or any new, worsening or concerning symptoms Prescriptions: No Action simvastatin 40 mg tablet 40 mg PO QPM Qty: 90 3RF Eliquis 5 mg tablet 5 mg PO BID Qty: 180 3RF metoprolol succinate 25 mg tablet extended release 24 hr 25 mg PO BID Qty: 180 2RF levofloxacin 750 mg tablet 750 mg PO DAILY Qty: 3 0RF Rx Instructions: Take one tablet the day before the procedure, the day of procedure, and the day after procedure. DO NOT TAKE Aspirin-containing products, blood thinners, or arthritis medication for 1 week prior to procedure. amlodipine 10 mg tablet 10 mg PO DAILY Qty: 90 3RF Patient Comments: Pt states he takes in the evenings cyclobenzaprine 10 mg tablet 10 mg PO TID PRN (Reason: muscle spasm) Qty: 30 0RF ciclopirox 1 % shampoo 1 % Topical TID PRN (Reason: Scalp issue) cholecalciferol (vitamin D3) 25 mcg (1,000 unit) capsule 25 mcg PO DAILY Digestive Advantage Probio-Pre 400 million cell tablet,chewable PO clobetasol 0.025 % cream 1 applic topical DAILY multivitamin Liquid 1 ea PO DAILY tamsulosin 0.4 mg capsule 0.8 mg PO QPM Qty: 180 3RF Referrals: Vidal Carpio MD [Primary Care Provider] - Stand Alone Forms: Patient Portal/API/Survey
[2024-04-03] MEDS: METOPROLOL ER 25 MG TABLET PO (15:34)
[2024-04-03] MEDS: dilTIAZem 25 MG/5 ML SDV 10 MG IV (15:35)
== END 2024-04-03 16:00 | disposition home or self-care (01) ==
PROVIDERS: Emergency Provider Emergency Medicine; PCP Internal Medicine
DX: I48.20 Chronic atrial fibrillation, unspecified (principal); Z79.01 Long term (current) use of anticoagulants; I10 Essential (primary) hypertension; Z87.442 Personal history of urinary calculi; R07.9 Chest pain, unspecified
CPT/HCPCS: 36415; 71045; 80053; 82550; 83690; 83735; 83880; 84484; 85025; 85610; 85730; 93005; 96374; 99284

== ENCOUNTER → 2024-04-18 06:41 | Outpatient (CLI) | payer MEDICARE, OTHER, SELFPAY ==
[2022-06-24 08:23] VITALS: BMI 35.2
--- NOTE | 2024-04-18 06:43 | DI.ECHO.S_ITS ---
[place] [facility] : : [address] : : [place] : : [id number] : : Phone: [phone] Echocardiogram Report + + :Name: MADELINE BENITES Study Date: 04/18/2024 Height: 74 in : :[facility] ReadingLocation: Weight: 285 lb : : Gender: Male BSA: 2.5 m2 : :: 1950 Age: 73 yrs BP: 146/101 mmHg: :Reason For Study: ATRIAL FIBRILLATION : :Ordering Physician: ALECIA, : :KRISHNA Ng Performed By: Sandra Maloney : :Referring: KRISHNA ALSTON : + + Interpretation Summary This is a technically difficult study enhanced with Definity echocontrast. Sinus bradycardia with heart rate 52-55 bpm during the exam. Normal LV size and mild concentric LVH; normal wall motion and LV systolic function. EF is 55-60%. Stage I diastolic dysfunction. Mild RA enlargement and moderate LA enlargement. Aortic sclerosis with mild associated stenosis. Mildly dilated aortic root and ascending aorta measuring 4.3 cm. Compared to prior echo 12/21/2018, aortic stenosis is new. Procedure: A two-dimensional transthoracic echocardiogram with color flow and Doppler was performed. Comparison is made with the echocardiogram of 12/21/2018. A contrast injection of Definity was performed to improve assessment of LV function. The study quality was technically difficult. The patient was in sinus bradycardia with heart rates between 52-55 bpm during the exam. Left Ventricle: The left ventricle is normal in size. There is mild concentric left ventricular hypertrophy. The ejection fraction is estimated to be 55-60%. Right Ventricle: The right ventricle is not well visualized. The right ventricle grossly appears normal in size with probable normal systolic function. Atria: The left atrium is moderately dilated. Right atrial size is normal. The right atrium is mildly dilated. There is no Doppler evidence for an interatrial shunt. Mitral Valve: The mitral valve leaflets are mildly calcified. There is trace mitral regurgitation. Aortic Valve: The aortic valve is trileaflet. The aortic valve is mildly calcified. The peak aortic velocity is 2.5 m/sec. The aortic valve mean gradient is 14 mmHg. The calculated aortic valve area is 1.7 cm2. No aortic regurgitation is present. Tricuspid Valve: The tricuspid valve leaflets are thin and pliable. There is trace tricuspid regurgitation. The right ventricular systolic pressure is estimated to be at least 25 mmHg based on an estimated right atrial pressure of 3 mm Hg. Pulmonic Valve: The pulmonic valve leaflets are thin and pliable; valve motion is normal. There is mild pulmonic regurgitation. Great Vessels: The aortic root is mildly dilated. The ascending aorta is mildly enlarged. The IVC is of normal diameter and collapses greater than 50% with a sniff. This suggests a low right atrial pressure of 3 mm Hg. Pericardium/ Pleura There is no pericardial effusion. There is no pleural effusion. MMode/2D Measurements & Calculations LVIDd: 5.3 cm LVOT diam: 2.2 cm LVIDs: 3.6 cm Ao root diam: 4.6 cm FS: 33.3 % asc Aorta Diam: 4.3 cm IVSd: 1.4 cm Ao Arch Diam (Prox Trans): 4.2 cm LVPWd: 1.1 cm LV daniels. diameter/BSA (cm/m^2): 2.1 LV sys. diameter/BSA (cm/m^2): 1.4 LA A2 area: 31.4 cm2 RA long axis: 7.1 cm LA A4 area: 26.9 cm2 RA area: 23.9 cm2 LA length (vol): 6.9 cm RA vol: 68.7 ml LA vol: 103.8 ml RA : 27.2 ml/m2 LA vol index: 41.1 ml/m2 IVC diam: 1.4 cm Doppler Measurements & Calculations Ao V2 max: 246.4 cm/sec LVOT Max Donte: 106.7 cm/sec Ao V2 mean: 177.5 cm/sec LV V1 max P.6 mmHg Ao max P.2 mmHg LV V1 VTI: 23.4 cm Ao mean P.8 mmHg ABHIJEET(I,D): 1.7 cm2 Ao V2 VTI: 55.2 cm ABHIJEET(V,D): 1.7 cm2 sev ratio: 0.42 ABHIJEET indexed to BSA (cm^2/m^2): 0.66 MV E max donte: 81.4 cm/sec TR max donte: 234.0 cm/sec MV A max donte: 104.5 cm/sec TR max P.9 mmHg MV E/A: 0.78 PA V2 max: 80.4 cm/sec Med Peak E' Donte: 5.5 cm/sec PA V2 mean: 56.2 cm/sec E/E' med: 14.8 PA mean P.4 mmHg Lat Peak E' Donte: 8.5 cm/sec PA pr(Accel): 27.6 mmHg E/E' lat: 9.6 E/e' average: 12.2 MV dec time: 0.28 sec SV(LVOT): 91.7 ml Electronically signed by: Mary Jane Bajwa M.D. on Reading Physician:04/19/2024 02:01 AM
== END ==
PROVIDERS: PCP Internal Medicine; Referring Provider Internal Medicine; Visit Provider Internal Medicine
DX: I37.1 Nonrheumatic pulmonary valve insufficiency (principal); I48.91 Unspecified atrial fibrillation; I77.810 Thoracic aortic ectasia; I77.89 Other specified disorders of arteries and arterioles
CPT/HCPCS: C8929; Q9957

== ENCOUNTER 2024-04-18 11:38 | Emergency (ER) | payer MEDICARE, OTHER, SELFPAY ==
[2022-06-24 08:23] VITALS: BMI 35.2
[2024-04-18] VITALS (32 sets, daily range): BP systolic 92–158; BP diastolic 69–104; PULSE 51–160; RESP 10–26; TEMP 36.2–36.9; O2SAT 92–99; BMI 36.6
--- NOTE | 2024-04-18 11:46 | EKG_ITS ---
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
--- NOTE | 2024-04-18 12:23 | DI.RAD.S_ITS ---
PROCEDURE: XR CHEST 1V INDICATIONS: chest pain TECHNIQUE: One view of the chest was acquired. COMPARISON: [facility], CR, XR CHEST 1V, 04/03/2024, 12:23. FINDINGS: Surgical changes and devices: None. Lungs and pleura: Ill-defined airspace opacity in left lower lung field is seen. Right lung is clear. No pleural effusions or pneumothorax. Mediastinum: Mediastinal contours appear normal. Heart size is mildly enlarged. Bones and chest wall: No suspicious bony lesions. Overlying soft tissues appear unremarkable. IMPRESSION: Suggestion of small left lower lobe infiltrate/atelectasis. No pleural effusion or pneumothorax. Dictated by: Jourdan Heard M.D. on 04/18/2024 at 12:49 Approved by: Jourdan Heard M.D. on 04/18/2024 at 12:50
[2024-04-18 13:11] LABS: Add Manual Diff / Slide Review NO; Basophils Absolute Auto 0 /uL (0-100); Basophils Percent Auto 0.4 % (0-2); Eosinophils Absolute Auto 100 /uL (0-450); Eosinophils Percent Auto 1.5 % (2-4); Hematocrit 42.9 % (41-53); Hemoglobin 14.9 g/dL (13.5-17.5); Lymphocytes Absolute Auto 2000 /uL (1100-4500); Lymphocytes Percent Auto 22.3 % (25-40); Mean Corpuscular HGB Conc 34.7 % (30-36); Mean Corpuscular Hemoglobin 31.2 PG (26-34); Mean Corpuscular Volume 89.8 fL (80-100); Monocytes Absolute Auto 600 /uL (0-900); Monocytes Percent Auto 7.1 % (3-14); Neutrophils Absolute Auto 6200 /uL (1500-7000); Neutrophils Percent Auto 68.7 % (50-75); Platelet Count 284 X10^3/uL (150-400); Red Blood Cell Count 4.78 X10^6/uL (4.5-5.9); Red Cell Distribution Width 13.8 % (11.6-14.8)
[2024-04-18 13:20] LABS: INR 1.1 (0.9-1.3); Prothrombin Time 12.2 SECONDS (9.4-12.5)
[2024-04-18 13:22] LABS: PTT Partial Thromboplastin Tim 36 SECONDS (25.1-36.5)
[2024-04-18 13:23] LABS: Alanine Aminotransferase 23 IU/L (<50); Albumin 4.1 g/dL (3.5-5.0); Albumin Globulin Ratio 1.4 (1.0-2.8); Alkaline Phosphatase 58 U/L (38-126); Aspartate Aminotransferase 26 IU/L (17-59); BUN Creatinine Ratio 16.7 (6-22); Bilirubin Total 0.4 mg/dL (0.2-1.3); Blood Urea Nitrogen 16 mg/dL (9-20); Calcium 9.1 mg/dL (8.4-10.2); Carbon Dioxide 26 mmol/L (22-32); Chloride 108 mmol/L (98-107); Creatine Kinase 75 U/L (55-170); Estimated Glomerular Filt Rate > 60 mL/min (>60); Glucose 114 mg/dL (80-110); HEMOLYSIS < 15 (0-50); Lipase 108 U/L (23-300); Magnesium 2.1 mg/dL (1.6-2.3); Potassium 3.6 mmol/L (3.4-5.1); Sodium 140 mmol/L (137-145); Total Protein 7.1 g/dL (6.3-8.2)
[2024-04-18 13:36] LABS: NT-proBNP (BNP-Adult 18+) 206 pg/mL (<125); Troponin I < 0.012 ng/mL (0.01-0.034)
[2024-04-18 15:58] LABS: Troponin I < 0.012 ng/mL (0.01-0.034)
--- NOTE | 2024-04-18 16:39 | PC.NURSE ---
Metoprolol held per Dr Leong request. HR 85
[2024-04-18] MEDS: METOPROLOL IR 25 MG TABLET PO (16:58)
--- NOTE | 2024-04-18 17:06 | PC.NURSE ---
HR tachy to 150. Verbal order received from Dr Leong for PO Metoprolol 25 mg
--- NOTE | 2024-04-18 17:14 | ED.ARRPALP ---
HPI - Arrhythmia/Palpitations General Chief Complaint: Arrhythmia/Palpitations Stated Complaint: Might be in AFIB Time Seen by Provider: 04/18/24 15:18 History of Present Illness HPI narrative: 73-year-old male with history of atrial fibrillation, prior episode years ago treated with IV medications in the emergency department and was released, few days ago had atrial fibrillation and was treated with IV metoprolol and IV diltiazem and discharge still in atrial fibrillation but in follow up with PCP Dr. Carpio was found to be in normal sinus rhythm. Intermittent atrial fibrillation. He had been taking Eliquis but it was held pending Urology biopsy procedure which has not yet been performed. He is still apparently not taking his blood thinner medication. He felt that he went back into atrial fibrillation earlier today this morning. No chest pain or shortness of breath. No syncope or presyncope symptoms. Related Data Home Medications Medication Instructions Recorded Confirmed ciclopirox 1 % shampoo 1 % topical TID PRN Scalp issue 01/23/20 04/06/24 Bacillus coagulans 400 million cell PO 06/03/21 04/06/24 cell chewable tablet (Digestive Advantage Probiotics-Prebiotic) cholecalciferol (vitamin D3) 25 25 mcg PO DAILY 06/03/21 04/06/24 mcg (1,000 unit) capsule clobetasol 0.025 % topical cream 1 applic topical DAILY 06/03/21 04/06/24 multivitamin 1 ea PO DAILY 01/15/23 04/06/24 Previous Rx's Medication Instructions Recorded cyclobenzaprine 10 mg tablet 10 mg PO TID PRN muscle spasm #30 11/29/ tabs amlodipine 10 mg tablet 10 mg PO DAILY #90 tabs 09/16/23 simvastatin 40 mg tablet 40 mg PO QPM #90 tabs 11/22/23 apixaban 5 mg tablet (Eliquis) 5 mg PO BID leg clot #180 tabs 12/09/23 metoprolol succinate 25 mg 25 mg PO BID #180 tabs 03/06/24 tablet,extended release 24 hr levofloxacin 750 mg tablet 750 mg PO DAILY #3 tabs 03/16/24 tamsulosin 0.4 mg capsule 0.8 mg (2 x 0.4 mg) PO QPM #180 04/17/24 caps Allergies Allergy/AdvReac Type Severity Reaction Status Date / Time No Known Drug Allergies Allergy Verified 04/06/24 11:24 Patient History Medical History (Updated 04/18/24 @ 20:06 by Anson Leong MD) care home current use of anticoagulant Persistent atrial fibrillation Atrial fibrillation with rapid ventricular response Incomplete bladder emptying Essential tremor Prostate cancer History of urinary retention History of nephrolithiasis Erectile dysfunction BPH w urinary obs/LUTS Hearing impaired Bradycardia Kidney stones Elevated PSA Atrial flutter Hypertension Personal history of pulmonary embolism (01/07/11) Hx of venous thrombosis and embolism (01/07/11) Osteoarthritis of knee (06/13/13) Mixed hyperlipidemia Surgical History Total knee replacement status Hx of cholecystectomy Family History Father Fam hx-ischem heart disease Social History marital status: number of children: 3 household members: spouse lives independently: Yes caregiver/support person: No housing: house pets and animals: Yes education level: college occupational status: other 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 yolanda/synagogue: [employer] leisure activities: exercise and other Smoking Status: Never smoker Tobacco: How many years used: 0 quit status: quit date established second hand exposure: No alcohol intake: former substance use type: does not use and other Smoking Status: Never smoker Exam Narrative Exam Narrative: GENERAL: Well-developed patient, in mild distress. HEAD: Atraumatic. Normocephalic. EYES: Pupils equal round and reactive. Extraocular motions intact. No scleral icterus. No injection or drainage. ENT: Nose without bleeding, purulent drainage. Throat without erythema, tonsillar hypertrophy or exudate. Airway patent. NECK: Trachea midline. Non tender CARDIOVASCULAR: Irregularly irregular rhythm, without murmurs, gallops, or rubs. RESPIRATORY: Clear to auscultation. Breath sounds equal bilaterally. No wheezes, rales, or rhonchi. GASTROINTESTINAL: Abdomen soft, non-tender, nondistended. EXTREMITIES: No edema or joint tenderness. BACK: Nontender without deformity or crepitance. No flank tenderness. NEURO: AOx3. Motor functions grossly nonfocal SKIN: No rash or erythema of visible areas Initial Vital Signs Initial Vital Signs: Vital Signs Temperature 97.1 F L 04/18/24 11:48 Pulse Rate 51 L 04/18/24 11:48 Respiratory Rate 16 04/18/24 11:48 Blood Pressure 92/69 04/18/24 11:48 Pulse Oximetry 94 04/18/24 11:48 Oxygen Delivery Method Room Air 04/18/24 11:48 Course Orders Ordered: ED Orders 04/18/24 15:23 Trop I [Troponin I] Stat 04/18/24 18:58 EKG-12 Lead Stat Discontinued Medications Diltiazem HCl (Diltiazem 25 Mg/5 Ml Sdv) 20 mg IV NOW ONE Stop: 04/18/24 17:26 Last Admin: 04/18/24 17:28 Dose: 20 mg Documented By: Metoprolol Tartrate (Metoprolol Tartrate 5 Mg/5 Ml Inj) 5 mg IV NOW ONE Stop: 04/18/24 15:31 Last Admin: 04/18/24 16:38 Dose: Not Given Documented By: Metoprolol Tartrate (Metoprolol Ir 25 Mg Tablet) 25 mg PO NOW ONE Stop: 04/18/24 16:55 Last Admin: 04/18/24 16:58 Dose: 25 mg Documented By: Vital Signs Vital signs: Vital Signs - 8 hr 04/18/24 15:02 04/18/24 15:05 04/18/24 15:05 Temperature Pulse Rate 148 H 148 H Respiratory Rate 20 Blood Pressure 134/97 H Pulse Oximetry 94 95 Oxygen Delivery Method 04/18/24 15:15 04/18/24 15:15 04/18/24 15:30 Temperature Pulse Rate 134 H 132 H Respiratory Rate 17 18 Blood Pressure 140/98 H Pulse Oximetry 95 94 Oxygen Delivery Method 04/18/24 15:30 04/18/24 15:45 04/18/24 15:45 Temperature Pulse Rate 98 H Respiratory Rate 18 Blood Pressure 139/93 H 135/92 H Pulse Oximetry 94 Oxygen Delivery Method 04/18/24 16:00 04/18/24 16:00 04/18/24 16:15 Temperature Pulse Rate 90 105 H Respiratory Rate 24 13 Blood Pressure 125/91 H Pulse Oximetry 94 95 Oxygen Delivery Method 04/18/24 16:15 04/18/24 16:30 04/18/24 16:30 Temperature Pulse Rate 98 H Respiratory Rate 18 Blood Pressure 130/88 129/97 H Pulse Oximetry 94 Oxygen Delivery Method Room Air 04/18/24 16:45 04/18/24 16:45 04/18/24 17:00 Temperature Pulse Rate 115 H 152 H Respiratory Rate 18 20 Blood Pressure 130/94 H Pulse Oximetry 94 93 Oxygen Delivery Method 04/18/24 17:01 04/18/24 17:01 04/18/24 17:15 Temperature Pulse Rate 157 H 106 H Respiratory Rate 21 20 Blood Pressure 128/104 H 158/91 H Pulse Oximetry 93 95 Oxygen Delivery Method Room Air 04/18/24 17:15 04/18/24 17:28 04/18/24 17:30 Temperature Pulse Rate 140 H 160 H 147 H Respiratory Rate 24 19 Blood Pressure 155/75 H Pulse Oximetry 94 94 Oxygen Delivery Method 04/18/24 17:31 04/18/24 17:31 04/18/24 17:34 Temperature Pulse Rate 153 H 117 H Respiratory Rate 24 23 Blood Pressure 125/94 H Pulse Oximetry 93 94 Oxygen Delivery Method 04/18/24 17:34 04/18/24 17:40 04/18/24 17:40 Temperature Pulse Rate 102 H Respiratory Rate 18 Blood Pressure 117/84 123/82 Pulse Oximetry 92 Oxygen Delivery Method 04/18/24 17:50 04/18/24 17:50 04/18/24 18:00 Temperature Pulse Rate 87 88 Respiratory Rate 17 19 Blood Pressure 127/95 H 116/80 Pulse Oximetry 94 95 Oxygen Delivery Method Room Air 04/18/24 18:00 04/18/24 18:10 04/18/24 18:10 Temperature Pulse Rate 90 86 Respiratory Rate 18 17 Blood Pressure 128/88 Pulse Oximetry 94 93 Oxygen Delivery Method 04/18/24 18:20 04/18/24 18:20 04/18/24 18:30 Temperature Pulse Rate 92 H 97 H Respiratory Rate 20 26 H Blood Pressure 120/77 Pulse Oximetry 95 94 Oxygen Delivery Method Room Air 04/18/24 18:30 04/18/24 18:40 04/18/24 18:40 Temperature Pulse Rate 80 Respiratory Rate 10 L Blood Pressure 112/79 122/72 Pulse Oximetry 95 Oxygen Delivery Method 04/18/24 18:50 04/18/24 18:50 04/18/24 19:00 Temperature Pulse Rate 83 76 Respiratory Rate 17 21 Blood Pressure 113/84 Pulse Oximetry 93 95 Oxygen Delivery Method 04/18/24 19:00 04/18/24 19:10 04/18/24 19:10 Temperature Pulse Rate 81 Respiratory Rate 16 Blood Pressure 126/85 117/84 Pulse Oximetry 92 Oxygen Delivery Method 04/18/24 19:20 04/18/24 19:20 04/18/24 19:30 Temperature Pulse Rate 78 76 Respiratory Rate 16 14 Blood Pressure 130/93 H Pulse Oximetry 93 94 Oxygen Delivery Method Room Air 04/18/24 19:30 04/18/24 19:58 Temperature 98.4 F Pulse Rate 87 Respiratory Rate 19 Blood Pressure 133/103 H 130/98 H Pulse Oximetry 98 Oxygen Delivery Method Room Air MDM - Arrhythmia/Palpitations Lab Data Attestation: I reviewed the patient's lab results. Lab results narrative: White blood cell count 9000, hemoglobin 14.9, platelets adequate. Basic metabolic panel unremarkable. Liver functions unremarkable. Troponin negative x2 interval studies unmeasurable. Lipase normal. 04/18/24 12:50 04/18/24 12:50 Labs: Lab Results 04/18/24 04/18/24 Range/Units 12:50 15:23 WBC 9.0 (4.5-11.0) X10^3/uL RBC 4.78 (4.5-5.9) X10^6/uL Hgb 14.9 (13.5-17.5) g/dL Hct 42.9 (41-53) % MCV 89.8 (80-100) fL MCH 31.2 (26-34) PG MCHC 34.7 (30-36) % RDW 13.8 (11.6-14.8) % Plt Count 284 (150-400) X10^3/uL Neut % (Auto) 68.7 (50-75) % Lymph % (Auto) 22.3 L (25-40) % [place] % (Auto) 7.1 (3-14) % Eos % (Auto) 1.5 L (2-4) % Baso % (Auto) 0.4 (0-2) % Neut # (Auto) 6200 (7788-4185) /uL Lymph # (Auto) 2000 (4954-1350) /uL [place] # (Auto) 600 (0-900) /uL Eos # (Auto) 100 (0-450) /uL Baso # (Auto) 0 (0-100) /uL PT 12.2 (9.4-12.5) SECONDS INR 1.1 (0.9-1.3) APTT 36 (25.1-36.5) SECONDS Sodium 140 (137-145) mmol/L Potassium 3.6 (3.4-5.1) mmol/L Chloride 108 H (98-107) mmol/L Carbon Dioxide 26 (22-32) mmol/L BUN 16 (9-20) mg/dL Creatinine 0.96 (0.66-1.25) mg/dL Estimated GFR > 60 (>60) mL/min BUN/Creatinine Ratio 16.7 (6-22) Glucose 114 H (80-110) mg/dL Calcium 9.1 (8.4-10.2) mg/dL Magnesium 2.1 (1.6-2.3) mg/dL Total Bilirubin 0.4 (0.2-1.3) mg/dL AST 26 (17-59) IU/L ALT 23 (<50) IU/L Alkaline Phosphatase 58 (38-126) U/L Total Creatine Kinase 75 (55-170) U/L Troponin I < 0.012 < 0.012 (0.01-0.034) ng/mL NT-Pro-B Natriuret Pep 206 H (<125) pg/mL Total Protein 7.1 (6.3-8.2) g/dL Albumin 4.1 (3.5-5.0) g/dL Globulin 3.0 (1.7-4.1) g/dL Albumin/Globulin Ratio 1.4 (1.0-2.8) Lipase 108 (23-300) U/L ECG Data Attestation: I personally reviewed and interpreted this ECG as follows: Interpretation: Atrial fibrillation with rapid ventricular response rate, 121 beats per minute, no obvious ST segment elevation or depression changes. QRS 98, QTC 479. 1901, Atrial fibrillation with rate 79, no obvious ST segment elevation or depression changes, rate controlled better. QRS 96, QTC 433. MDM Narrative Medical decision making narrative: 73yo with history of atrial fibrillation, few days ago seen here for atrial fibrillation with RVR, not candidate for cardioversion due to doses Eliquis being held for prostate biopsy local urologist Dr Cha, at that time treated for rate control with metoprol and diltiazem boluses, DC on lower rate still in Afib, had follow-up appointment with PCP Balaji when was in normal sinus rhythm, now this morning having irregular fast heartbeat sensation. EKG shows Afib with RVR, IV metoprolol, little changes, IV Diltiazem 20mg, improved heart rate. Labs unremarkble. DC home with advice to continue same metoprolol and eliquis dosing for now, FU with PCP next days, return precautions discussed. Home with family. Discharge Plan Departure Patient Disposition: Home Clinical Impression: Atrial fibrillation Instructions: DI for Atrial Fibrillation Activity Restrictions/Additional Instructions: History of atrial fibrillation, recent visit for atrial fibrillation with rapid rate that was treated with IV metoprolol and IV diltiazem, in follow up found to be in the normal sinus rhythm. Again today having symptoms of atrial fibrillation with rapid ventricular response. Blood pressure seemed adequate. IV diltiazem and metoprolol again were used, with control of the rate. We briefly did discuss cardioversion however you had missed some doses of Eliquis for possible prostate biopsy procedure that did not occur, but would put you at increased risk for blood clots/stroke if cardioversion were done non emergently. Rate control adequate for now, continue taking your regular medications. Follow up with your regular doctor as planned. Follow up with your sustainability specialist as planned. Continue your Eliquis anticoagulation that he would recently restarted. Continue your chronic medications the same for now. Recheck this/nearest emergency department for change worsening symptoms or any concerns prior. Prescriptions: No Action simvastatin 40 mg tablet 40 mg PO QPM Qty: 90 3RF Eliquis 5 mg tablet 5 mg PO BID Qty: 180 3RF metoprolol succinate 25 mg tablet extended release 24 hr 25 mg PO BID Qty: 180 2RF levofloxacin 750 mg tablet 750 mg PO DAILY Qty: 3 0RF Rx Instructions: Take one tablet the day before the procedure, the day of procedure, and the day after procedure. DO NOT TAKE Aspirin-containing products, blood thinners, or arthritis medication for 1 week prior to procedure. tamsulosin 0.4 mg capsule 0.8 mg PO QPM Qty: 180 3RF amlodipine 10 mg tablet 10 mg PO DAILY Qty: 90 3RF Hold Instructions: hypotension Patient Comments: Pt states he takes in the evenings cyclobenzaprine 10 mg tablet 10 mg PO TID PRN (Reason: muscle spasm) Qty: 30 0RF ciclopirox 1 % shampoo 1 % Topical TID PRN (Reason: Scalp issue) cholecalciferol (vitamin D3) 25 mcg (1,000 unit) capsule 25 mcg PO DAILY Digestive Advantage Probio-Pre 400 million cell tablet,chewable PO clobetasol 0.025 % cream 1 applic topical DAILY multivitamin Liquid 1 ea PO DAILY Referrals: Vidal Carpio MD [Primary Care Provider] - Stand Alone Forms: Patient Portal/API/Survey
--- NOTE | 2024-04-18 17:17 | PC.NURSE ---
HR continues to remain 150-160. Dr Leong notified. in room with pt.
[2024-04-18] MEDS: dilTIAZem 25 MG/5 ML SDV 20 MG IV (17:28)
--- NOTE | 2024-04-18 18:58 | EKG_ITS ---
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
== END 2024-04-18 20:10 | disposition home or self-care (01) ==
PROVIDERS: Emergency Provider Emergency Medicine; PCP Internal Medicine
DX: I48.91 Unspecified atrial fibrillation (principal); Z79.01 Long term (current) use of anticoagulants; I37.1 Nonrheumatic pulmonary valve insufficiency; I77.810 Thoracic aortic ectasia; I77.89 Other specified disorders of arteries and arterioles
CPT/HCPCS: 36415; 71045; 80053; 82550; 83690; 83735; 83880; 84484; 85025; 85610; 85730; 93005; 93010; 96374; 96375; 99284; C8929; Q9957

== ENCOUNTER → 2024-06-07 07:11 | Outpatient (CLI) | payer MEDICARE, OTHER, SELFPAY ==
[2024-04-20 07:56] VITALS: BMI 35.2
--- NOTE | 2024-06-07 07:12 | DI.NM.S_ITS ---
PROCEDURE: NM EXERCISE TREADMILL NON NUC COMPARISON: None. INDICATIONS: aortic aneurysm suspected FINDINGS: Patient exercised per the standard Juanjo protocol. Total exercise time was 6 minutes and 41 seconds. Test was terminated secondary to fatigue. Maximal heart rate obtained is 170 bpm which is 115% of max impacted heart rate. Maximum blood pressure 180/79[place] [address]. PERICO -2%. 7.0 METS. No ischemic changes noted during stress phase. However there was loss of ECG signals noted in recovery. This was corrected 13 seconds into recovery. No obvious arrhythmias noted. No chest pains voiced. Normal heart rate and blood pressure response to exercise. IMPRESSION: 1. Nondiagnostic exercise treadmill stress test for ischemia due to loss of ECG signals at beginning of recovery. 2. No obvious ischemic changes noted during the stress phase. Dictated by: Beka Heard M.D. on 06/07/2024 at 16:35 Approved by: Beka Heard M.D. on 06/07/2024 at 16:37
--- NOTE | 2024-06-07 07:33 | DI.CT.S_ITS ---
PROCEDURE: CT CHEST WO CON INDICATIONS: aortic aneurysm suspected TECHNIQUE: Noncontrast 5 mm thick sections acquired from the pulmonary apices to the posterior costophrenic angles. 1 mm lung window, 5 mm thick coronal and sagittal and 7 mm axial MIP reformats were then acquired. For radiation dose reduction, the following was used: automated exposure control, adjustment of mA and/or kV according to patient size. COMPARISON: [facility], CR, XR CHEST 1V, 04/18/2024, 12:29. FINDINGS: Image quality: Diagnostic Lungs and pleura: Mild basal atelectasis, especially in the left lower lung. No dense airspace disease. No pleural effusions. No overtly suspicious pulmonary nodule. Mediastinum, heart, and esophagus: There is borderline cardiomegaly. Coronary calcifications, aortic annular, and aortic valvular calcifications also seen. The ascending aorta measures 4.8 cm. The descending aorta measures 3.5 cm. No pericardial effusion. Unremarkable esophagus. No pathologic lymph nodes by size criteria Chest wall and thyroid: Unremarkable Upper abdomen: Cholecystectomy clips partially seen Bones: Degenerative changes. No aggressive appearing osseous abnormality. IMPRESSION: Ascending aorta measures 4.8 cm, borderline aneurysmal. Ectatic descending aorta also seen measuring 3.5 cm. Coronary, aortic valvular, and annular calcifications. Other findings above. Dictated by: Pawan Lechuga M.D. on 06/07/2024 at 8:17 Approved by: Pawan Lechuga M.D. on 06/07/2024 at 8:20
== END ==
PROVIDERS: PCP Internal Medicine; Referring Provider Internal Medicine; Visit Provider Internal Medicine
DX: I48.0 Paroxysmal atrial fibrillation (principal); I72.9 Aneurysm of unspecified site; I77.810 Thoracic aortic ectasia; I25.10 Atherosclerotic heart disease of native coronary artery without angina pectoris
CPT/HCPCS: 71250; 93017

== ENCOUNTER 2024-08-25 21:13 | Emergency (ER) | payer MEDICARE, OTHER, SELFPAY ==
[2024-04-20 07:56] VITALS: BMI 35.2
[2024-08-25] VITALS (10 sets, daily range): BP systolic 112–136; BP diastolic 73–90; PULSE 84–146; RESP 12–24; TEMP 36.2; O2SAT 92–96; BMI 37.0
--- NOTE | 2024-08-25 21:19 | EKG_ITS ---
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
--- NOTE | 2024-08-25 21:40 | DI.RAD.S_ITS ---
PROCEDURE: XR CHEST 1V INDICATIONS: Palpitation TECHNIQUE: One view of the chest was acquired. COMPARISON: [facility], CR, XR CHEST 1V, 04/18/2024, 12:29. FINDINGS: Surgical changes and devices: None. Lungs and pleura: Minimal streaky bibasilar opacities favored to represent atelectasis. No dense consolidation. No pleural effusions or pneumothorax. Mediastinum: Mediastinal contours appear normal. Heart size is normal. Bones and chest wall: No suspicious bony lesions. Overlying soft tissues appear unremarkable. IMPRESSION: Minimal streaky bibasilar opacities favored to represent atelectasis. Otherwise, no acute cardiopulmonary abnormalities. Dictated by: Pastor Mccain M.D. on 08/25/2024 at 21:56 Approved by: Pastor Mccain M.D. on 08/25/2024 at 21:57
--- NOTE | 2024-08-25 21:40 | ED.ARRPALP ---
HPI - Arrhythmia/Palpitations General Chief Complaint: Arrhythmia/Palpitations Stated Complaint: Irregular Heart rate, had heart Ablation X7days Time Seen by Provider: 08/25/24 21:40 Source: patient Mode of arrival: Ambulatory History of Present Illness HPI narrative: Patient is a 73-year-old male with a past medical history of AFib status post ablation 1 week ago, on apixaban. Patient follows with Dr. Heard of Cardiology, patient did have echo performed on 04/18/2024 that showed ejection fraction 55-60%. Patient states that around 8:00 p.m. he noticed a fluttering in his chest but denies any actual chest pain shortness of breath, he states that he would not have come in except the fact that he just had a recent ablation he complains of no other symptoms at this time. States that he has never been cardioverted previously. Has been compliant with all his medications including his Eliquis Related Data Home Medications ?Medication ?Instructions ?Recorded ?Confirmed ciclopirox 1 % shampoo 1 % topical TID PRN Scalp issue 01/23/20 07/10/24 Bacillus coagulans 400 million cell PO 06/03/21 07/10/24 cell chewable tablet (Digestive Advantage Probiotics-Prebiotic) cholecalciferol (vitamin D3) 25 25 mcg PO DAILY 06/03/21 07/10/24 mcg (1,000 unit) capsule clobetasol 0.025 % topical cream 1 applic topical DAILY 06/03/21 07/10/24 multivitamin 1 ea PO DAILY 01/15/23 07/10/24 amlodipine 5 mg tablet 5 mg PO DAILY 06/12/24 07/10/24 metoprolol succinate 25 mg 12.5 mg PO BID 06/12/24 07/10/24 tablet,extended release 24 hr Previous Rx's ?Medication ?Instructions ?Recorded cyclobenzaprine 10 mg tablet 10 mg PO TID PRN muscle spasm #30 11/29/20 tabs simvastatin 40 mg tablet 40 mg PO QPM #90 tabs 11/22/23 apixaban 5 mg tablet (Eliquis) 5 mg PO BID leg clot #180 tabs 12/09/23 tamsulosin 0.4 mg capsule 0.8 mg (2 x 0.4 mg) PO QPM #180 04/17/24 caps Allergies Allergy/AdvReac Type Severity Reaction Status Date / Time No Known Drug Allergies Allergy Verified 08/25/24 21:20 Review of Systems Review of Systems Narrative: General: Denies fever, chills, weight loss HEENT: Denies headache, eye drainage, eye irritation, head trauma, sore throat, voice change Cardiovascular: Positive palpitations Denies any chest pain, tachycardia Respiratory: Denies any shortness of breath, cough, wheeze, stridor GI/: Denies any abdominal pain, nausea, vomiting, diarrhea, bright red blood per rectum, melanotic stools, urinary frequency, urinary retention, dysuria, hematuria MSK: Denies any joint pain, muscle pains, swelling Skin: Denies any rashes, lesions, discoloration Neuro: Denies any headache, lightheadedness, dizziness, fainting, weakness Psych: Denies SI/HI Patient History Medical History (Updated 08/25/24 @ 22:47 by Keenan Menjivar DO) Ascending aortic aneurysm Paroxysmal atrial fibrillation 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 current use of anticoagulant Atrial fibrillation with rapid ventricular response Incomplete bladder emptying Essential tremor Prostate cancer History of urinary retention History of nephrolithiasis Erectile dysfunction BPH w urinary obs/LUTS Hearing impaired Bradycardia Kidney stones Elevated PSA Atrial flutter Hypertension Personal history of pulmonary embolism (01/07/11) Hx of venous thrombosis and embolism (01/07/11) Osteoarthritis of knee (06/13/13) Mixed hyperlipidemia Surgical History Total knee replacement status Hx of cholecystectomy Family History Father Fam hx-ischem heart disease Social History marital status: number of children: 3 household members: spouse lives independently: Yes caregiver/support person: No housing: house pets and animals: Yes education level: college occupational status: other Previous occupational history: [employer], [employer]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 yolanda/sabianism: [employer] leisure activities: exercise and other Smoking Status: Never smoker Tobacco: How many years used: 0 quit status: quit date established second hand exposure: No alcohol intake: former substance use type: does not use and other Smoking Status: Never smoker Exam Narrative Exam Narrative: General: Cooperative, well-developed, not in acute distress HEENT: Normocephalic, atraumatic, PERRLA, normal sclera, eyelids normal Neck: Active full range of motion, atraumatic Chest: Normal to inspection, negative crepitus, no overlying erythema ecchymosis Respiratory: Normal respiratory effort, not in acute respiratory distress, clear to auscultation bilaterally negative cough, wheeze, tachypnea, rhonchi, rales Cardiology: Irregularly irregular, tachycardic negative gallop, murmur, rubs GI/: No tenderness to palpation, soft, non rigid, normal to inspection, exam deferred MSK: Full active range of motion in all 4 extremities, atraumatic, no tenderness to palpation of any bony prominences Skin: No rashes or lesions noted Neuro: Alert awake oriented x3, moves all 4 extremities spontaneously, cranial nerves intact, able to answer all questions appropriately follows commands appropriately Psych: Cooperative, negative suicidal or homicidal ideations Initial Vital Signs Initial Vital Signs: Vital Signs Temperature 97.2 F L 08/25/24 21:20 Pulse Rate 134 H 08/25/24 21:20 Respiratory Rate 18 08/25/24 21:20 Blood Pressure 136/78 08/25/24 21:20 Pulse Oximetry 96 08/25/24 21:20 Oxygen Delivery Method Room Air 08/25/24 21:20 Course Orders Ordered: ED Orders 08/25/24 21:19 EKG-12 Lead Stat 08/25/24 21:38 Complete Blood Count AUTO DIFF Stat Comprehensive Metabolic Panel Stat Lipase Stat MAG [Magnesium] Stat TSH [Thyroid Stimulating Hormone] Stat Troponin & CK Cardiac Panel Stat 08/25/24 21:40 XR chest 1V Stat Sodium Chloride (Normal Saline 0.9%) 1,000 mls @ 1,000 mls/hr IV BOLUS ONE Stop: 08/25/24 22:56 Last Admin: 08/25/24 22:08 Dose: 1,000 mls/hr Documented By: RLC Discontinued Medications Magnesium Sulfate (Magnesium Sulfate) 2 gm in 50 mls @ 150 mls/hr IV NOW ONE Stop: 08/25/24 22:16 Last Admin: 08/25/24 22:08 Dose: 150 mls/hr Documented By: RLC Co-signed By: ROXIE Metoprolol Tartrate (Metoprolol Tartrate 5 Mg/5 Ml Inj) 5 mg IV NOW ONE Stop: 08/25/24 21:58 Last Admin: 08/25/24 22:08 Dose: 5 mg Documented By: C Vital Signs Vital signs: Vital Signs - 8 hr 08/25/24 21:20 Temperature 97.2 F L Pulse Rate 134 H Respiratory Rate 18 Blood Pressure 136/78 Pulse Oximetry 96 Oxygen Delivery Method Room Air MDM - Arrhythmia/Palpitations Differential Diagnosis Differential diagnosis: Likely palpitations, sinus tachycardia, artial fibrillation, artial flutter, ventricular premature beats, supraventricular tachycardia and other (Electrolyte abnormality, pneumonia) Lab Data 08/25/24 21:38 08/25/24 21:38 Labs: Lab Results 08/25/24 Range/Units 21:38 WBC 8.4 (4.5-11.0) X10^3/uL RBC 5.04 (4.5-5.9) X10^6/uL Hgb 15.6 (13.5-17.5) g/dL Hct 45.4 (41-53) % MCV 90.2 (80-100) fL MCH 30.9 (26-34) PG MCHC 34.3 (30-36) % RDW 13.5 (11.6-14.8) % Plt Count 273 (150-400) X10^3/uL Neut % (Auto) 60.8 (50-75) % Lymph % (Auto) 27.8 (25-40) % [place] % (Auto) 9.1 (3-14) % Eos % (Auto) 1.8 L (2-4) % Baso % (Auto) 0.5 (0-2) % Neut # (Auto) 5100 (7512-2776) /uL Lymph # (Auto) 2300 (2421-8870) /uL [place] # (Auto) 800 (0-900) /uL Eos # (Auto) 100 (0-450) /uL Baso # (Auto) 0 (0-100) /uL Sodium 140 (137-145) mmol/L Potassium 3.9 (3.4-5.1) mmol/L Chloride 106 (98-107) mmol/L Carbon Dioxide 26 (22-32) mmol/L BUN 19 (9-20) mg/dL Creatinine 0.90 (0.66-1.25) mg/dL Estimated GFR > 60 (>60) mL/min BUN/Creatinine Ratio 21.1 (6-22) Glucose 104 H (70-99) mg/dL Calcium 9.1 (8.4-10.2) mg/dL Magnesium 2.2 (1.6-2.3) mg/dL Total Bilirubin 0.6 (0.2-1.3) mg/dL AST 20 (17-59) IU/L ALT 18 (<50) IU/L Alkaline Phosphatase 64 (38-126) U/L Total Creatine Kinase 60 (55-170) U/L Troponin I 0.043 H (0.01-0.034) ng/mL Total Protein 7.1 (6.3-8.2) g/dL Albumin 4.2 (3.5-5.0) g/dL Globulin 2.9 (1.7-4.1) g/dL Albumin/Globulin Ratio 1.4 (1.0-2.8) Lipase 82 (23-300) U/L Imaging Data Chest x-ray: Radiologist's Impresson: [address] [address] XRay Report Signed Patient: Donaldo Fermin MR#: [id number] : 1950 Acct:[id number] Age/Sex: 73 / M Date of Service: 08/25/24 Loc: ED Accession Number: [id number] Procedure: XR chest 1V Ordering Provider: Keenan Menjivar D.O. PROCEDURE: XR CHEST 1V INDICATIONS: Palpitation TECHNIQUE: One view of the chest was acquired. COMPARISON: [facility], , XR CHEST 1V, 04/18/2024, 12:29. FINDINGS: Surgical changes and devices: None. Lungs and pleura: Minimal streaky bibasilar opacities favored to represent atelectasis. No dense consolidation. No pleural effusions or pneumothorax. Mediastinum: Mediastinal contours appear normal. Heart size is normal. Bones and chest wall: No suspicious bony lesions. Overlying soft tissues appear unremarkable. IMPRESSION: Minimal streaky bibasilar opacities favored to represent atelectasis. Otherwise, no acute cardiopulmonary abnormalities. ECG Data Interpretation: EKG interpreted ED physician, atrial fibrillation 149 beats per minute QTC 491, normal axis nonspecific ST changes no STEMI MDM Narrative Medical decision making narrative: Patient is a 73-year-old male who presents to the emergency department for palpitations, he is status post ablation x7 days, follows with Dr. Heard of Cardiology, patient states that he is not having any chest pain shortness breath, he states that he just noticed some palpitations but states that he is not feeling it currently. He states he only came in because he just had a ablation. Otherwise he states he has never had cardioversion previously. He states that he would like to try medications before cardioversion, patient EKG was AFib initially without any ischemic changes. Patient's initial troponin at 0.043, however EKG nonischemic patient not complaining of any chest pain shortness breath most likely elevated given recent ablation 2233: Patient was given 5 mg IV Lopressor, 2 g Mag, patient now rate controlled maintaining in the 70 to 90s, however patient is still in AFib 2246: Patient was re-evaluated no new complaints at this time, he states that he is feeling completely normal, he has no chest pain shortness of breath no palpitations, I did inform him that we can still do a cardioversion if he would like given the fact that he is just status post ablation, he states that he would like to defer this, he states that he would like to 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 Disease processes change and evolve, if your symptoms worsen or if you develop any new symptoms that are concerning to you please return for evaluation. Your evaluation today does not show any evidence of any life-threatening/serious illnesses requiring admission to the hospital or surgery. Please follow-up with your doctor for re-evaluation in approximately 1 day. Seek immediate medical attention for any worrisome symptoms. *If you do not have a primary care provider please contact the [facility] Resource line at [phone]. They will ask some questions about your medical history and help get you set up with a doctor in the community. Prescriptions: No Action simvastatin 40 mg tablet 40 mg PO QPM Qty: 90 3RF Eliquis 5 mg tablet 5 mg PO BID Qty: 180 3RF tamsulosin 0.4 mg capsule 0.8 mg PO QPM Qty: 180 3RF amlodipine 5 mg tablet 5 mg PO DAILY cyclobenzaprine 10 mg tablet 10 mg PO TID PRN (Reason: muscle spasm) Qty: 30 0RF metoprolol succinate 25 mg tablet extended release 24 hr 12.5 mg PO BID ciclopirox 1 % shampoo 1 % Topical TID PRN (Reason: Scalp issue) cholecalciferol (vitamin D3) 25 mcg (1,000 unit) capsule 25 mcg PO DAILY Digestive Advantage Probio-Pre 400 million cell tablet,chewable PO clobetasol 0.025 % cream 1 applic topical DAILY multivitamin Liquid 1 ea PO DAILY Referrals: Vidal Carpio MD [Primary Care Provider, Internal Medicine] Stand Alone Forms: Patient Portal/API
[2024-08-25 21:51] LABS: Add Manual Diff / Slide Review NO; Basophils Absolute Auto 0 /uL (0-100); Basophils Percent Auto 0.5 % (0-2); Eosinophils Absolute Auto 100 /uL (0-450); Eosinophils Percent Auto 1.8 % (2-4); Hematocrit 45.4 % (41-53); Hemoglobin 15.6 g/dL (13.5-17.5); Lymphocytes Absolute Auto 2300 /uL (1100-4500); Lymphocytes Percent Auto 27.8 % (25-40); Mean Corpuscular HGB Conc 34.3 % (30-36); Mean Corpuscular Hemoglobin 30.9 PG (26-34); Mean Corpuscular Volume 90.2 fL (80-100); Monocytes Absolute Auto 800 /uL (0-900); Monocytes Percent Auto 9.1 % (3-14); Neutrophils Absolute Auto 5100 /uL (1500-7000); Neutrophils Percent Auto 60.8 % (50-75); Platelet Count 273 X10^3/uL (150-400); Red Blood Cell Count 5.04 X10^6/uL (4.5-5.9); Red Cell Distribution Width 13.5 % (11.6-14.8); White Blood Cell Count 8.4 X10^3/uL (4.5-11.0)
[2024-08-25 21:56] LABS: Alanine Aminotransferase 18 IU/L (<50); Albumin 4.2 g/dL (3.5-5.0); Albumin Globulin Ratio 1.4 (1.0-2.8); Alkaline Phosphatase 64 U/L (38-126); Aspartate Aminotransferase 20 IU/L (17-59); BUN Creatinine Ratio 21.1 (6-22); Bilirubin Total 0.6 mg/dL (0.2-1.3); Blood Urea Nitrogen 19 mg/dL (9-20); Calcium 9.1 mg/dL (8.4-10.2); Carbon Dioxide 26 mmol/L (22-32); Chloride 106 mmol/L (98-107); Creatine Kinase 60 U/L (55-170); Estimated Glomerular Filt Rate > 60 mL/min (>60); Globulin 2.9 g/dL (1.7-4.1); Glucose 104 mg/dL (70-99); HEMOLYSIS < 15 (0-50); Lipase 82 U/L (23-300); Magnesium 2.2 mg/dL (1.6-2.3); Potassium 3.9 mmol/L (3.4-5.1); Sodium 140 mmol/L (137-145); Total Protein 7.1 g/dL (6.3-8.2)
[2024-08-25 22:07] LABS: Troponin I 0.043 ng/mL (0.01-0.034)
[2024-08-25] MEDS: SODIUM CHLORIDE 0.9% 1,000 ML 1000 ML IV (22:08)
[2024-08-25] MEDS: MAGNESIUM SULFATE 2 GM/50 ML PIGGYBACK IV (22:08)
[2024-08-25] MEDS: METOPROLOL TARTRATE 5 MG/5 ML INJ IV ×2 (22:08→23:17)
[2024-08-25 22:34] LABS: Thyroid Stimulating Hormone 3.26 uIU/mL (0.47-4.68)
[2024-08-25] MEDS: METOPROLOL ER 25 MG TABLET PO (23:18)
[2024-08-26] VITALS: PULSE 91; RESP 14; O2SAT 95
[2024-08-26 00:27] VITALS: BP 107/78; PULSE 104; RESP 20; O2SAT 95
[2024-08-26 00:36] VITALS: PULSE 94
== END 2024-08-26 00:39 | disposition home or self-care (01) ==
PROVIDERS: Emergency Provider Student in an Organized Health Care Education/Training Program; PCP Internal Medicine
DX: I48.91 Unspecified atrial fibrillation (principal); Z79.01 Long term (current) use of anticoagulants
CPT/HCPCS: 36415; 71045; 80053; 82550; 83690; 83735; 84443; 84484; 85025; 93005; 93010; 96365; 96375; 96376; 99284; J3475

== ENCOUNTER → 2024-10-09 07:05 | Outpatient (CLI) | payer MEDICARE, OTHER, SELFPAY ==
[2024-04-20 07:56] VITALS: BMI 35.2
[2024-10-09 08:44] LABS: Alanine Aminotransferase 21 IU/L (<50); Albumin 4.2 g/dL (3.5-5.0); Albumin Globulin Ratio 1.6 (1.0-2.8); Alkaline Phosphatase 76 U/L (38-126); Blood Urea Nitrogen 15 mg/dL (9-20); Calcium 9.3 mg/dL (8.4-10.2); Carbon Dioxide 26 mmol/L (22-32); Chloride 104 mmol/L (98-107); Cholesterol 139 mg/dL (140-199); Estimated Glomerular Filt Rate > 60 mL/min (>60); Globulin 2.6 g/dL (1.7-4.1); Glucose 91 mg/dL (70-99); HDL Cholesterol 39 mg/dL (40-60); HEMOLYSIS < 15 (0-50); Potassium 4.1 mmol/L (3.4-5.1); Sodium 138 mmol/L (137-145); Total Protein 6.8 g/dL (6.3-8.2); Triglycerides 147 mg/dL (35-150)
[2024-10-09 09:13] LABS: Prostate Specific Antigen 7.63 ng/mL (0.10-4.00)
== END ==
PROVIDERS: PCP Internal Medicine; Referring Provider Internal Medicine; Visit Provider Urology
DX: R97.20 Elevated prostate specific antigen [PSA] (principal); I10 Essential (primary) hypertension; G25.0 Essential tremor; E78.2 Mixed hyperlipidemia; C61 Malignant neoplasm of prostate
CPT/HCPCS: 36415; 80053; 80061; 84153

== ENCOUNTER → 2024-11-15 06:40 | Outpatient (CLI) | payer MEDICARE, OTHER, SELFPAY ==
[2024-04-20 07:56] VITALS: BMI 35.2
--- NOTE | 2024-11-15 06:42 | DI.CT.S_ITS ---
PROCEDURE: CT CHEST WO CON INDICATIONS: Aneurysm TECHNIQUE: Noncontrast 5 mm thick sections acquired from the pulmonary apices to the posterior costophrenic angles. 1 mm lung window, 5 mm thick coronal and sagittal and 7 mm axial MIP reformats were then acquired. For radiation dose reduction, the following was used: automated exposure control, adjustment of mA and/or kV according to patient size. COMPARISON: [facility], CT, CT CHEST WO CON, 06/07/2024, 7:18. FINDINGS: Image quality: Diagnostic. Lower Neck: No enlarged lymph nodes. Thyroid: No thyroid nodules which require sonographic follow up, per consensus guidelines. Axillae: No enlarged lymph nodes. Chest Wall: Unremarkable. Bones: Unremarkable. Lungs and Pleura: No pneumothorax or pleural effusions. Left basilar atelectasis versus linear scarring. No suspicious nodule. Heart: Borderline cardiomegaly. Calcifications of the aortic valve mild mitral valve annulus, and 2 vessel coronary artery calcifications, which involve the left anterior descending coronary artery. Thoracic Vessels: Borderline aneurysmal dilatation of the ascending thoracic aorta, measures 4.8 cm, previously 4.8 cm on 06/07/2024. 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 Mediastinum and [place]: No enlarged lymph nodes. Esophagus: No wall thickening. No hiatal hernia. Upper Abdomen: Visualized upper abdomen solid organs and bowel loops appear normal. IMPRESSION: Borderline aneurysmal dilatation of the ascending thoracic aorta with aneurysmal dilatation of the proximal descending thoracic aorta. Recommend continued follow with CT angiogram of the chest as noncontrast CT is not sensitive for acute aortic pathology. Coronary, aortic valve, and mitral annular calcifications. Dictated by: Ramírez King M.D. on 11/15/2024 at 9:52 Approved by: Ramírez King M.D. on 11/15/2024 at 10:02
== END ==
LOC: CT 06:41
PROVIDERS: PCP Internal Medicine; Referring Provider Internal Medicine; Visit Provider Internal Medicine
DX: I71.23 Aneurysm of the descending thoracic aorta, without rupture (principal); I25.10 Atherosclerotic heart disease of native coronary artery without angina pectoris; I34.81 Nonrheumatic mitral (valve) annulus calcification
CPT/HCPCS: 71250

== ENCOUNTER → 2025-01-12 06:52 | Outpatient (CLI) | payer MEDICARE, OTHER, SELFPAY ==
[2024-04-20 07:56] VITALS: BMI 35.2
== END ==
PROVIDERS: PCP Internal Medicine; Referring Provider Internal Medicine; Visit Provider Internal Medicine
DX: Z12.11 Encounter for screening for malignant neoplasm of colon (principal)
CPT/HCPCS: 82274